=== PATIENT | female | born 1950 | race Caucasian/White ===

== ENCOUNTER 2020-04-29 16:33 | Outpatient (REF) | payer MEDICARE, SELFPAY ==
--- NOTE | 2020-04-29 16:46 | XR_ITS ---
EXAMINATION: XR ankle LT 2V, XR ankle RT 2V CLINICAL INFORMATION: No clinical history provided. COMPARISON: None. TECHNIQUE: AP, lateral and oblique views of both ankles. FINDINGS: LEFT ANKLE: There is mild deformity of the distal fibula consistent with old trauma. Several small ossicles at the tip of the medial malleolus are likely chronic. Clinical correlation will be helpful to rule out acute injury. No significant soft tissue swelling or joint effusion is seen. A well corticated plantar spur is present on the posterior calcaneus. RIGHT ANKLE: Small well-corticated ossicles at the medial malleolus and base of the fifth metatarsal appear chronic. No acute bony abnormality. No significant soft tissue swelling or joint effusion. Small spurs are present on the posterior calcaneus at the insertion of the Achilles tendon and plantar fascia. IMPRESSION: 1. Mild fragmentation of the left medial malleolus likely chronic. Clinical correlation will be helpful to rule out acute injury. 2. No acute abnormality of the right ankle demonstrated. Chronic changes as noted.
== END 2020-04-29 16:34 | disposition home or self-care (01) ==
LOC: HO.HMGCX 16:33
PROVIDERS: PCP Internal Medicine; Visit Provider Internal Medicine
DX: R73.01 Impaired fasting glucose (principal)
CPT/HCPCS: 73600

== ENCOUNTER → 2020-09-07 08:54 | Outpatient (BNVA) | payer MEDICARE, SELFPAY | PROVIDERS: PCP Internal Medicine; Visit Provider Internal Medicine | DX: M81.0 Age-related osteoporosis without current pathological fracture (principal); E55.9 Vitamin D deficiency, unspecified | CPT/HCPCS: 96372; 96402; 99212; J0897 ==

== ENCOUNTER 2020-09-30 10:30 | Outpatient (REF) | payer MEDICARE, SELFPAY ==
[2020-09-30 11:51] LABS: Albumin Level 4.2 g/dL (3.5-5.0); Calcium 8.9 mg/dL (8.4-10.2); Estimated Glomerular Filt Rate 56; Phosphorus 3.2 mg/dL (2.7-4.5)
[2020-09-30 12:19] LABS: Vitamin D 25-OH Total 40.3 ng/mL (>30)
[2020-10-03 16:12] LABS: Calcium (PTHI) 9.4 mg/dL (8.6-10.4); PTHI 95 pg/mL (14-64)
== END 2020-09-30 10:31 | disposition home or self-care (01) ==
LOC: HO.HMGCLDS 10:30
PROVIDERS: PCP Internal Medicine; Visit Provider Internal Medicine
DX: M81.0 Age-related osteoporosis without current pathological fracture (principal); E55.9 Vitamin D deficiency, unspecified
CPT/HCPCS: 36415; 82040; 82306; 82310; 82565; 83970; 84100

== ENCOUNTER 2020-11-21 08:16 | Outpatient (REF) | payer MEDICARE, SELFPAY ==
[2020-11-21 11:35] LABS: Estimated Average Glucose 117 mg/dL; Hemoglobin A1c % 5.7 %
[2020-11-21 11:53] LABS: Anion Gap 16 (12-20); Blood Urea Nitrogen 18 mg/dL (9-16); Calcium 9.6 mg/dL (8.4-10.2); Carbon Dioxide 28 mmol/L (22-29); Chloride 105 mmol/L (96-108); Cholesterol 282 mg/dL; Estimated Glomerular Filt Rate > 60; Glucose Fasting 113 mg/dL (60-99); HDL Cholesterol 42 mg/dL; LDL Cholesterol Calculated 206 mg/dl; Potassium 4.9 mmol/L (3.3-5.1); Sodium 144 mmol/L (135-145); Triglycerides 173 mg/dL
[2020-11-21 12:18] LABS: Ferritin 96 ng/mL (10-250); TSH reflex Free T4 1.24 uIU/mL (0.32-4.0)
[2020-11-21 12:35] LABS: Vitamin B12 394 pg/mL (200-900)
== END 2020-11-21 08:17 | disposition home or self-care (01) ==
LOC: HO.HMGCLDS 08:16
PROVIDERS: PCP Internal Medicine; Visit Provider Internal Medicine
DX: E03.9 Hypothyroidism, unspecified (principal); L60.3 Nail dystrophy; E78.9 Disorder of lipoprotein metabolism, unspecified; F32.9 Major depressive disorder, single episode, unspecified; I10 Essential (primary) hypertension; J45.909 Unspecified asthma, uncomplicated; K21.9 Gastro-esophageal reflux disease without esophagitis; R73.01 Impaired fasting glucose; M25.571 Pain in right ankle and joints of right foot; M25.572 Pain in left ankle and joints of left foot
CPT/HCPCS: 36415; 80048; 80061; 82607; 82728; 83036; 84443

== ENCOUNTER 2021-02-15 11:19 | Outpatient (REF) | payer MEDICARE, SELFPAY ==
[2021-02-15 14:39] LABS: Alanine Aminotransferase 32 U/L (0-31); Albumin Level 4.1 g/dL (3.5-5.0); Alkaline Phosphatase 83 U/L (39-117); Anion Gap 15 (12-20); Aspartate Amino Transferase 31 U/L (5-31); Bilirubin Total 0.5 mg/dL (0.0-1.0); Blood Urea Nitrogen 16 mg/dL (9-16); Calcium 9.1 mg/dL (8.4-10.2); Carbon Dioxide 31 mmol/L (22-29); Chloride 102 mmol/L (96-108); Cholesterol 178 mg/dL; Estimated Glomerular Filt Rate 59; Glucose Fasting 108 mg/dL (60-99); HDL Cholesterol 44 mg/dL; LDL Cholesterol Calculated 109 mg/dl; Sodium 144 mmol/L (135-145); Total Protein 7.1 g/dL (6.5-8.0); Triglycerides 125 mg/dL
== END 2021-02-15 11:20 | disposition home or self-care (01) ==
LOC: HO.HMGCLDS 11:19
PROVIDERS: PCP Internal Medicine; Visit Provider Internal Medicine
DX: E03.9 Hypothyroidism, unspecified (principal); E66.9 Obesity, unspecified; E78.9 Disorder of lipoprotein metabolism, unspecified; I10 Essential (primary) hypertension
CPT/HCPCS: 36415; 80053; 80061; 84443

== ENCOUNTER 2021-03-06 10:26 | Outpatient (REF) | payer MEDICARE, SELFPAY ==
[2021-03-06 14:25] LABS: Albumin Level 4.2 g/dL (3.5-5.0); Calcium 9.5 mg/dL (8.4-10.2); Estimated Glomerular Filt Rate 58; Phosphorus 3.5 mg/dL (2.7-4.5)
[2021-03-06 14:52] LABS: Vitamin D 25-OH Total 37.6 ng/mL (>30)
== END 2021-03-06 10:27 | disposition home or self-care (01) ==
LOC: HO.HMGCLDS 10:26
PROVIDERS: PCP Internal Medicine; Visit Provider Internal Medicine
DX: M81.0 Age-related osteoporosis without current pathological fracture (principal); E55.9 Vitamin D deficiency, unspecified
CPT/HCPCS: 36415; 82040; 82306; 82310; 82565; 83970; 84100

== ENCOUNTER → 2021-03-08 08:52 | Outpatient (BNVA) | payer MEDICARE, SELFPAY | PROVIDERS: PCP Internal Medicine; Visit Provider Internal Medicine | DX: M81.0 Age-related osteoporosis without current pathological fracture (principal); E55.9 Vitamin D deficiency, unspecified | CPT/HCPCS: 20552; 96372; 99212; J0897 ==

== ENCOUNTER 2021-03-24 08:10 | Outpatient (REF) | payer MEDICARE, SELFPAY ==
[2021-03-24 12:23] LABS: Estimated Glomerular Filt Rate > 60
[2021-03-24 12:34] LABS: Vitamin D 25-OH Total 32.6 ng/mL (>30)
[2021-03-24 12:39] LABS: Alanine Aminotransferase 34 U/L (0-31); Alkaline Phosphatase 82 U/L (39-117); Anion Gap 13 (12-20); Aspartate Amino Transferase 26 U/L (5-31); Bilirubin Total 0.4 mg/dL (0.0-1.0); Blood Urea Nitrogen 17 mg/dL (9-16); Calcium 8.6 mg/dL (8.4-10.2); Carbon Dioxide 29 mmol/L (22-29); Chloride 106 mmol/L (96-108); Estimated Glomerular Filt Rate > 60; Glucose Random 111 mg/dL (60-115); Phosphorus 3.5 mg/dL (2.7-4.5); Sodium 144 mmol/L (135-145); Total Protein 6.7 g/dL (6.5-8.0)
[2021-03-27 13:12] LABS: Calcium (PTHI) 9.1 mg/dL (8.6-10.4); PTHI 127 pg/mL (14-64); PTHI 133 pg/mL (14-64)
[2021-03-28 17:47] LABS: N-Telopeptide 22 (see note); NTXCreaRU 175 mg/dL (20-275)
== END 2021-03-24 08:11 | disposition home or self-care (01) ==
LOC: HO.HMGCLDS 08:10
PROVIDERS: PCP Internal Medicine; Visit Provider Internal Medicine
DX: M81.0 Age-related osteoporosis without current pathological fracture (principal); E55.9 Vitamin D deficiency, unspecified
CPT/HCPCS: 36415; 80053; 82040; 82306; 82310; 82523; 82565; 83970; 84100

== ENCOUNTER 2021-05-05 12:20 | Outpatient (REF) | payer MEDICARE, SELFPAY ==
[2021-05-05 14:03] LABS: Appearance Urine HAZY; Color Urine ORANGE; Glucose Urine UA NEG (NEG); Leukocyte Esterase Urine 1+ (NEG); Nitrite Urine NEG (NEG); Specific Gravity - Urine 1.015 (1.005-1.025); Urine Blood NEG (NEG); Urine Ketones NEG (NEG); Urine Protein NEG (NEG-TRACE)
[2021-05-05 14:20] LABS: Bacteria Urine TRACE /LPF; Mucus Urine 1+ /LPF; RBC Urine 0 /HPF (0); Squamous Epithelial Cell Urine 1+ /LPF
[2021-05-05 14:28] LABS: Alanine Aminotransferase 42 U/L (0-31); Albumin Level 4.3 g/dL (3.5-5.0); Alkaline Phosphatase 92 U/L (39-117); Anion Gap 14 (12-20); Aspartate Amino Transferase 32 U/L (5-31); Bilirubin Total 0.6 mg/dL (0.0-1.0); Blood Urea Nitrogen 15 mg/dL (9-16); Calcium 9.6 mg/dL (8.4-10.2); Carbon Dioxide 29 mmol/L (22-29); Chloride 106 mmol/L (96-108); Estimated Glomerular Filt Rate > 60; Glucose Random 108 mg/dL (60-115); Iron 60 mcg/dL (30-160); Magnesium 1.8 mg/dL (1.6-2.6); Percent Iron Saturation 17 % (15-50); Phosphorus 3.2 mg/dL (2.7-4.5); Potassium 4.5 mmol/L (3.3-5.1); Sodium 144 mmol/L (135-145); Total Iron Binding Capacity 357 mcg/dL (228-428); Total Protein 7.2 g/dL (6.5-8.0); Unsaturated Iron Binding 297 ug/dL; Uric Acid 5.8 mg/dL (2.4-5.7)
[2021-05-05 14:46] LABS: Creatinine Urine 111.16 mg/dL; Microalbum/Creatinine Ratio Ur 15.2 ug/mg cr; Protein/Creatinine Ratio, Ur 0.09 (<0.2); Total Protein Urine Random 10 mg/dL (<12)
[2021-05-05 14:50] LABS: Ferritin 89 ng/mL (10-250); Vitamin D 25-OH Total 33.6 ng/mL (>30)
[2021-05-09 15:56] LABS: Calcium (PTHI) 9.6 mg/dL (8.6-10.4); PTHI 60 pg/mL (14-64)
== END 2021-05-05 12:21 | disposition home or self-care (01) ==
LOC: HO.HMGCLDS 12:20
PROVIDERS: PCP Internal Medicine; Visit Provider Internal Medicine Nephrology
DX: I12.9 Hypertensive chronic kidney disease with stage 1 through stage 4 chronic kidney disease, or unspecified chronic kidney disease (principal); N18.2 Chronic kidney disease, stage 2 (mild)
CPT/HCPCS: 36415; 80053; 81001; 82043; 82306; 82728; 83540; 83735; 83970; 84100; 84156; 84300; 84550

== ENCOUNTER 2021-09-12 12:51 | Outpatient (REF) | payer MEDICARE, SELFPAY ==
[2021-09-12 14:11] LABS: Hematocrit 40.4 % (37.0-47.0); Hemoglobin 12.5 g/dl (12.0-16.0)
[2021-09-12 14:36] LABS: Alanine Aminotransferase 17 U/L (0-31); Albumin Level 3.9 g/dL (3.5-5.0); Alkaline Phosphatase 76 U/L (39-117); Anion Gap 12 (12-20); Aspartate Amino Transferase 16 U/L (5-31); Bilirubin Total 0.6 mg/dL (0.0-1.0); Blood Urea Nitrogen 15 mg/dL (9-16); Calcium 9.1 mg/dL (8.4-10.2); Carbon Dioxide 31 mmol/L (22-29); Chloride 104 mmol/L (96-108); Estimated Glomerular Filt Rate > 60; Glucose Random 140 mg/dL (60-115); Potassium 3.6 mmol/L (3.3-5.1); Sodium 143 mmol/L (135-145); Total Protein 6.7 g/dL (6.5-8.0)
[2021-09-12 14:58] LABS: TSH reflex Free T4 5.84 uIU/mL (0.32-4.0)
[2021-09-12 15:52] LABS: Free T4 (Free Thyroxine) 1.01 ng/dL (0.71-1.85)
[2021-09-14 03:52] LABS: LDL Cholesterol Direct 139 mg/dL (<100)
== END 2021-09-12 12:52 | disposition home or self-care (01) ==
LOC: HO.HMGCLDS 12:51
PROVIDERS: Visit Provider Internal Medicine
DX: E66.9 Obesity, unspecified (principal); I10 Essential (primary) hypertension; F32.9 Major depressive disorder, single episode, unspecified; K21.9 Gastro-esophageal reflux disease without esophagitis; E78.9 Disorder of lipoprotein metabolism, unspecified; E03.9 Hypothyroidism, unspecified; N28.9 Disorder of kidney and ureter, unspecified
CPT/HCPCS: 36415; 80053; 83721; 84439; 84443; 85014; 85018

== ENCOUNTER → 2021-09-13 08:57 | Outpatient (BNVA) | payer MEDICARE, SELFPAY | PROVIDERS: PCP Internal Medicine; Visit Provider Internal Medicine | DX: M81.0 Age-related osteoporosis without current pathological fracture (principal); E55.9 Vitamin D deficiency, unspecified | CPT/HCPCS: 99212 ==

== ENCOUNTER 2021-09-13 10:18 | Outpatient (REF) | payer MEDICARE, SELFPAY ==
[2021-09-13 14:06] LABS: Alanine Aminotransferase 19 U/L (0-31); Alkaline Phosphatase 72 U/L (39-117); Anion Gap 12 (12-20); Aspartate Amino Transferase 17 U/L (5-31); Bilirubin Total 0.5 mg/dL (0.0-1.0); Blood Urea Nitrogen 19 mg/dL (9-16); Calcium 9.8 mg/dL (8.4-10.2); Carbon Dioxide 33 mmol/L (22-29); Chloride 101 mmol/L (96-108); Estimated Glomerular Filt Rate > 60; Glucose Random 86 mg/dL (60-115); Phosphorus 4.2 mg/dL (2.7-4.5); Potassium 4.3 mmol/L (3.3-5.1); Sodium 142 mmol/L (135-145); Total Protein 6.9 g/dL (6.5-8.0)
[2021-09-13 14:27] LABS: Vitamin D 25-OH Total 26.4 ng/mL (>30)
[2021-09-14 15:07] LABS: Calcium (PTHI) 9.6 mg/dL (8.6-10.4); PTHI 45 pg/mL (14-64)
== END 2021-09-13 10:19 | disposition home or self-care (01) ==
LOC: HO.10HDL 10:18
PROVIDERS: Visit Provider Internal Medicine
DX: M81.0 Age-related osteoporosis without current pathological fracture (principal); E55.9 Vitamin D deficiency, unspecified
CPT/HCPCS: 36415; 80053; 82306; 83970; 84100; 99212

== ENCOUNTER → 2021-10-02 09:56 | Outpatient (BNVA) | payer MEDICARE, SELFPAY | PROVIDERS: PCP Internal Medicine; Visit Provider Internal Medicine | DX: M81.0 Age-related osteoporosis without current pathological fracture (principal) | CPT/HCPCS: 96372; J0897 ==

== ENCOUNTER 2022-02-16 10:14 | Outpatient (REF) | payer MEDICARE, SELFPAY ==
[2022-02-16 11:46] LABS: MANUAL DIFF FLAG NO
[2022-02-16 11:49] LABS: Basophils Percent Auto 0.5 % (0-2); Eosinophils Absolute Auto 0.1 X10*3/uL (0.0-0.4); Eosinophils Percent Auto 1.3 % (0-4); Hematocrit 40.1 % (37.0-47.0); Hemoglobin 12.4 g/dl (12.0-16.0); Imm Gran Abs Auto 0.05 X10*3/uL (0.00-0.03); Imm Gran Pct Auto 0.6 % (0.0-0.4); Lymphocytes Absolute Auto 1.6 X10*3/uL (1.2-4.9); Lymphocytes Percent Auto 17.8 % (20-40); Mean Corpuscular HGB Conc 30.9 g/dl (31.0-35.0); Mean Corpuscular Hemoglobin 25.4 pg (27.0-33.0); Mean Platelet Volume 9.7 fL (9.4-12.3); Monocytes Absolute Auto 0.4 X10*3/uL (0.1-1.2); Monocytes Percent Auto 4.6 % (2-11); Neutrophils Absolute Auto 6.6 x10*3/uL (2.0-8.3); Neutrophils Percent Auto 75.2 % (45-73); Platelet Count 342 X10*3/uL (160-400); Red Blood Count 4.89 X10*6/uL (4.20-5.50); Red Cell Distribution Width 14.3 % (11.0-16.0); White Blood Count 8.7 X10*3/uL (4.8-10.8)
[2022-02-16 12:12] LABS: Alanine Aminotransferase 26 U/L (0-31); Alkaline Phosphatase 61 U/L (39-117); Anion Gap 12 (12-20); Aspartate Amino Transferase 16 U/L (5-31); Bilirubin Total 0.8 mg/dL (0.0-1.0); Blood Urea Nitrogen 21 mg/dL (9-16); Carbon Dioxide 28 mmol/L (22-29); Chloride 108 mmol/L (96-108); Estimated Glomerular Filt Rate > 60; Glucose Random 113 mg/dL (60-115); Phosphorus 3.3 mg/dL (2.7-4.5); Potassium 3.9 mmol/L (3.3-5.1); Sodium 144 mmol/L (135-145); Total Protein 6.8 g/dL (6.5-8.0)
[2022-02-16 12:21] LABS: TSH reflex Free T4 0.34 uIU/mL (0.32-4.0)
[2022-02-16 12:23] LABS: Vitamin D 25-OH Total 29.1 ng/mL (>30)
[2022-02-19 07:03] LABS: LDL Cholesterol Direct 135 mg/dL (<100)
[2022-02-20 15:52] LABS: Calcium (PTHI) 9.3 mg/dL (8.6-10.4); PTHI 62 pg/mL (16-77)
== END 2022-02-16 10:15 | disposition home or self-care (01) ==
LOC: HO.HMGCLDS 10:14
PROVIDERS: PCP Internal Medicine; Visit Provider Internal Medicine
DX: E66.9 Obesity, unspecified (principal); E78.9 Disorder of lipoprotein metabolism, unspecified; F33.42 Major depressive disorder, recurrent, in full remission; I10 Essential (primary) hypertension; K21.9 Gastro-esophageal reflux disease without esophagitis; M81.0 Age-related osteoporosis without current pathological fracture; E55.9 Vitamin D deficiency, unspecified; E03.9 Hypothyroidism, unspecified
CPT/HCPCS: 36415; 80053; 82306; 83721; 83970; 84100; 84443; 85025

== ENCOUNTER 2022-03-07 07:52 | Outpatient (REF) | payer MEDICARE, SELFPAY ==
--- NOTE | ~2022-03-07 | XR_ITS ---
EXAMINATION: XR HIP, RIGHT CLINICAL INFORMATION: Pain in hip. COMPARISON: None TECHNIQUE: Two views of the right hip. AP pelvis. FINDINGS: AP PELVIS: There is normal symmetry of bilateral hip joints with minimal loss of joint space. The SI joints are symmetrical and normal. No visible fracture or bony abnormality seen. The soft tissues are normal. There is mild facet joint arthropathy L4-L5 disc level. RIGHT HIP: There is minimal loss of right hip joint space without any bony erosive changes, fracture or loose bodies. XR/XR hip RT w PEL1V IMPRESSION: Mild degenerative changes right hip joint. No visible acute fracture or dislocation. Moderate degenerative facet joint arthropathy left L4-L5 disc level. No acute fracture or dislocation seen.
== END 2022-03-07 07:53 | disposition home or self-care (01) ==
LOC: HO.HOSX 07:52
PROVIDERS: Visit Provider Physician Assistant
DX: M70.61 Trochanteric bursitis, right hip (principal); M16.11 Unilateral primary osteoarthritis, right hip
CPT/HCPCS: 20610; 73502; 99202; J1040

== ENCOUNTER → 2022-04-05 09:43 | Outpatient (BNVA) | payer MEDICARE, SELFPAY | PROVIDERS: PCP Internal Medicine; Visit Provider Internal Medicine | DX: M81.0 Age-related osteoporosis without current pathological fracture (principal) | CPT/HCPCS: 96372; J0897 ==

== ENCOUNTER → 2022-04-18 09:30 | Outpatient (BNVA) | payer MEDICARE, SELFPAY | PROVIDERS: PCP Internal Medicine; Visit Provider Physician Assistant | DX: M16.11 Unilateral primary osteoarthritis, right hip (principal) | CPT/HCPCS: 99212 ==

== ENCOUNTER 2022-04-23 09:31 | Outpatient (REF) | payer MEDICARE, SELFPAY ==
[2022-04-23 10:16] LABS: Estimated Glomerular Filt Rate > 60
[2022-04-24 11:02] LABS: PTHI 99 pg/mL (16-77)
== END 2022-04-23 09:32 | disposition home or self-care (01) ==
LOC: HO.LAB 09:31
PROVIDERS: PCP Internal Medicine; Visit Provider Internal Medicine
DX: M81.0 Age-related osteoporosis without current pathological fracture (principal)
CPT/HCPCS: 36415; 82565; 83970

== ENCOUNTER 2022-06-25 12:16 | Outpatient (REF) | payer MEDICARE, SELFPAY ==
[2022-06-25 14:30] LABS: Estimated Glomerular Filt Rate > 60
[2022-06-27 12:23] LABS: PTHI 44 pg/mL (16-77)
== END 2022-06-25 12:17 | disposition home or self-care (01) ==
LOC: HO.HMGCLDS 12:16
PROVIDERS: PCP Internal Medicine; Visit Provider Internal Medicine
DX: M81.0 Age-related osteoporosis without current pathological fracture (principal)
CPT/HCPCS: 36415; 82565; 83970

== ENCOUNTER 2022-10-02 08:49 | Outpatient (REF) | payer MEDICARE, SELFPAY ==
[2022-10-02 11:31] LABS: MANUAL DIFF FLAG NO
[2022-10-02 11:38] LABS: Basophils Absolute Auto 0.1 X10*3/uL (0.0-0.2); Basophils Percent Auto 1.3 % (0-2); Eosinophils Absolute Auto 0.3 X10*3/uL (0.0-0.4); Eosinophils Percent Auto 4.4 % (0-4); Hematocrit 32.3 % (37.0-47.0); Hemoglobin 10.1 g/dl (12.0-16.0); Imm Gran Abs Auto 0.04 X10*3/uL (0.00-0.03); Imm Gran Pct Auto 0.5 % (0.0-0.4); Lymphocytes Absolute Auto 1.8 X10*3/uL (1.2-4.9); Lymphocytes Percent Auto 23.7 % (20-40); Mean Corpuscular HGB Conc 31.3 g/dl (31.0-35.0); Mean Corpuscular Hemoglobin 26.4 pg (27.0-33.0); Mean Corpuscular Volume 84.6 fL (80.0-98.0); Mean Platelet Volume 9.8 fL (9.4-12.3); Monocytes Absolute Auto 0.6 X10*3/uL (0.1-1.2); Monocytes Percent Auto 7.4 % (2-11); Neutrophils Absolute Auto 4.7 x10*3/uL (2.0-8.3); Neutrophils Percent Auto 62.7 % (45-73); Platelet Count 544 X10*3/uL (160-400); Red Blood Count 3.82 X10*6/uL (4.20-5.50); Red Cell Distribution Width 14.7 % (11.0-16.0); White Blood Count 7.5 X10*3/uL (4.8-10.8)
[2022-10-02 12:24] LABS: Alanine Aminotransferase 13 U/L (0-31); Alkaline Phosphatase 88 U/L (39-117); Anion Gap 16 (12-20); Aspartate Amino Transferase 18 U/L (5-31); Bilirubin Total 0.5 mg/dL (0.0-1.0); Blood Urea Nitrogen 20 mg/dL (9-16); Calcium 9.5 mg/dL (8.4-10.2); Carbon Dioxide 28 mmol/L (22-29); Chloride 103 mmol/L (96-108); Cholesterol 183 mg/dL; Estimated Glomerular Filt Rate 58; Glucose Fasting 106 mg/dL (60-99); HDL Cholesterol 37 mg/dL; LDL Cholesterol Calculated 113 mg/dl; Potassium 4.6 mmol/L (3.3-5.1); Sodium 142 mmol/L (135-145); Total Protein 6.8 g/dL (6.5-8.0); Triglycerides 165 mg/dL
[2022-10-02 12:41] LABS: TSH reflex Free T4 0.52 uIU/mL (0.32-4.0)
== END 2022-10-02 08:50 | disposition home or self-care (01) ==
LOC: HO.HMGCLDS 08:49
PROVIDERS: PCP Internal Medicine; Visit Provider Internal Medicine
DX: I10 Essential (primary) hypertension (principal); E78.9 Disorder of lipoprotein metabolism, unspecified; E03.9 Hypothyroidism, unspecified; K21.9 Gastro-esophageal reflux disease without esophagitis; F33.9 Major depressive disorder, recurrent, unspecified; E66.9 Obesity, unspecified; M16.11 Unilateral primary osteoarthritis, right hip
CPT/HCPCS: 36415; 80053; 80061; 84443; 85025

== ENCOUNTER 2022-12-04 08:41 | Outpatient (REF) | payer MEDICARE, SELFPAY ==
[2022-12-04 12:17] LABS: Estimated Average Glucose 140 mg/dL; Hemoglobin A1c % 6.5 %
[2022-12-04 12:55] LABS: Alanine Aminotransferase 31 U/L (0-31); Albumin Level 4.4 g/dL (3.5-5.0); Alkaline Phosphatase 87 U/L (39-117); Anion Gap 15 (12-20); Aspartate Amino Transferase 21 U/L (5-31); Bilirubin Total 0.5 mg/dL (0.0-1.0); Blood Urea Nitrogen 30 mg/dL (9-16); Carbon Dioxide 27 mmol/L (22-29); Chloride 105 mmol/L (96-108); Estimated Glomerular Filt Rate 56; Glucose Fasting 140 mg/dL (60-99); Glucose Random 140 mg/dL (60-115); Potassium 4.7 mmol/L (3.3-5.1); Sodium 142 mmol/L (135-145); Total Protein 7.5 g/dL (6.5-8.0)
[2022-12-04 13:01] LABS: Ferritin 82 ng/mL (10-250)
== END 2022-12-04 08:42 | disposition home or self-care (01) ==
LOC: HO.HMGCLDS 08:41
PROVIDERS: PCP Internal Medicine; Visit Provider Internal Medicine
DX: D64.9 Anemia, unspecified (principal); E03.9 Hypothyroidism, unspecified; E78.9 Disorder of lipoprotein metabolism, unspecified; F33.9 Major depressive disorder, recurrent, unspecified; I10 Essential (primary) hypertension; K21.9 Gastro-esophageal reflux disease without esophagitis; R73.01 Impaired fasting glucose
CPT/HCPCS: 36415; 80053; 82728; 83036

== ENCOUNTER → 2022-12-12 08:52 | Outpatient (BNVA) | payer MEDICARE, SELFPAY | PROVIDERS: PCP Internal Medicine; Visit Provider Internal Medicine | DX: M81.0 Age-related osteoporosis without current pathological fracture (principal); E55.9 Vitamin D deficiency, unspecified | CPT/HCPCS: 36415; 80053; 82306; 82523; 83970; 84100; 99212 ==

== ENCOUNTER 2022-12-12 09:19 | Outpatient (REF) | payer MEDICARE, SELFPAY ==
[2022-12-12 11:14] LABS: Alanine Aminotransferase 20 U/L (0-31); Alkaline Phosphatase 87 U/L (39-117); Anion Gap 13 (12-20); Aspartate Amino Transferase 14 U/L (5-31); Bilirubin Total 0.6 mg/dL (0.0-1.0); Blood Urea Nitrogen 20 mg/dL (9-16); Calcium 9.8 mg/dL (8.4-10.2); Carbon Dioxide 30 mmol/L (22-29); Chloride 106 mmol/L (96-108); Estimated Glomerular Filt Rate > 60; Glucose Random 117 mg/dL (60-115); Phosphorus 4.4 mg/dL (2.7-4.5); Potassium 4.8 mmol/L (3.3-5.1); Sodium 144 mmol/L (135-145); Total Protein 6.8 g/dL (6.5-8.0)
[2022-12-12 11:29] LABS: Vitamin D 25-OH Total 38.3 ng/mL (>30)
[2022-12-14 16:33] LABS: Calcium (PTHI) 9.9 mg/dL (8.6-10.4); PTHI 32 pg/mL (16-77)
[2022-12-20 20:43] LABS: N-Telopeptide 73 (see note); NTXCreaRU 119 mg/dL (20-275)
== END 2022-12-12 09:20 | disposition home or self-care (01) ==
LOC: HO.10HDL 09:19
PROVIDERS: Visit Provider Internal Medicine
DX: Z13.89 Encounter for screening for other disorder (principal)
CPT/HCPCS: 36415; 80053; 82306; 82523; 83970; 84100

== ENCOUNTER 2022-12-14 09:04 | Outpatient (REF) | payer MEDICARE, SELFPAY ==
--- NOTE | ~2022-12-14 | MM_ITS ---
EXAMINATION: BONE DENSITOMETRY CLINICAL INDICATION: Age-related osteoporosis without current pathological fracture. COMPARISON: Baseline BD dated 03/21/2020 (lumbar spine and left hip). This is the initial examination of the left forearm radius 33%. TECHNIQUE: Using a [employer] DXA System (software version: 13.1) manufactured by [employer], dual-energy x-ray absorptiometry was performed of the lumbar spine, left hip and left forearm radius 33%.. The images are of good technical quality. Summary results are attached. FINDINGS: AP SPINE L1-L4: Current: BMD 1.204 g/cm2, Z-score 1.2, T-score 0.2, normal, 2.9% increase from baseline (<5% change is not significant). Baseline: BMD 1.170 g/cm2. LEFT FEMUR, NECK: Current: BMD 0.695 g/cm2, Z-score -1.2, T-score -2.5, osteoporosis. Baseline: BMD 0.681 g/cm2. LEFT FEMUR, TOTAL: Current: BMD 0.840 g/cm2, Z-score -0.3, T-score -1.3, osteopenia, 0.0% no change from baseline (<5% change is not significant). Baseline: BMD 0.840 g/cm2. LEFT FOREARM RADIUS 33%: BMD 0.803 g/cm2, Z-score 1.0, T-score -0.8, normal. IDENTIFIED RISK FACTORS: Osteoporosis. Renal disease. Parental hip fracture. Menopause. HISTORY OF FRACTURE: None listed. MEDICATIONS: Calcium supplement and/or multivitamin. Vitamin D. Prolia. MM/XR DEXA appendicular skeleton IMPRESSION: 1. DIAGNOSIS: Osteoporosis based on the lowest T-score value of -2.5 in the femoral neck applying World Health Organization criteria. 2. 10-YEAR FRACTURE RISK PREDICTION, FRAX: According to the guidelines, FRAX calculation should only be performed on patients in the osteopenia bone density category.?Therefore, FRAX was not performed on this patient.? 3. Treatment Recommendations: NOF guidelines recommend consideration for treatment in postmenopausal women and men age 50 and older presenting with the following: -A hip or vertebral (clinical or morphometric) fracture. -T-score less than or equal to -2.5 at the femoral neck or spine after appropriate evaluation to exclude secondary causes. -Low bone mass at the hip or spine and a 10-year fracture probability by FRAX of greater than or equal to 3% for hip fracture or greater than or equal to 20% for major osteoporotic fracture based on the [place] adapted WHO algorithm. 4. Other Recommendations: All treatment decisions require clinical judgment and consideration of individual patient factors, including patient preferences, comorbidities, previous drug use, risk factors not captured in the FRAX model (e.g. frailty, falls, vitamin D deficiency, increased bone turnover, interval significant decline in bone density) and possible under or overestimation of fracture risk by FRAX. Additional medical evaluation for secondary cause of low bone mineral density may be appropriate. FUTURE SCAN RECOMMENDATION: People with diagnosed cases of osteoporosis or at high risk for fracture should have regular bone mineral density tests. For patients eligible for Medicare, routine testing is allowed once every 2 years. The testing frequency can be increased to one year for patients who have rapidly progressing disease, those who are receiving or discontinuing medical therapy to restore bone mass, or have additional risk factors.
== END 2022-12-14 09:05 | disposition home or self-care (01) ==
LOC: HO.MAMMO 09:04
PROVIDERS: PCP Internal Medicine; Visit Provider Internal Medicine
DX: M81.0 Age-related osteoporosis without current pathological fracture (principal)
CPT/HCPCS: 77081

== ENCOUNTER → 2022-12-19 08:57 | Outpatient (BNVA) | payer MEDICARE, SELFPAY | PROVIDERS: PCP Internal Medicine; Visit Provider Internal Medicine | DX: M81.0 Age-related osteoporosis without current pathological fracture (principal) | CPT/HCPCS: 96372; J0897 ==

== ENCOUNTER 2023-01-02 11:43 | Outpatient (REF) | payer MEDICARE, SELFPAY ==
[2023-01-02 14:17] LABS: Estimated Glomerular Filt Rate > 60
[2023-01-03 22:24] LABS: Calcium (PTHI) 9.4 mg/dL (8.6-10.4); PTHI 55 pg/mL (16-77)
== END 2023-01-02 11:44 | disposition home or self-care (01) ==
LOC: HO.HMGCLDS 11:43
PROVIDERS: PCP Internal Medicine; Visit Provider Internal Medicine
DX: M81.0 Age-related osteoporosis without current pathological fracture (principal)
CPT/HCPCS: 36415; 82565; 83970

== ENCOUNTER 2023-02-01 10:15 | Outpatient (REF) | payer MEDICARE, SELFPAY ==
[2023-02-06 15:19] LABS: Vitamin D 25-OH, D2 5 ng/mL; Vitamin D 25-OH, D3 28 ng/mL; Vitamin D 25-OH, Total 33 ng/mL (30-100)
== END 2023-02-01 10:16 | disposition home or self-care (01) ==
LOC: HO.HMGCLDS 10:15
PROVIDERS: PCP Internal Medicine; Visit Provider Internal Medicine
DX: D64.9 Anemia, unspecified (principal); E03.9 Hypothyroidism, unspecified; E55.9 Vitamin D deficiency, unspecified; E78.9 Disorder of lipoprotein metabolism, unspecified; F33.9 Major depressive disorder, recurrent, unspecified; I10 Essential (primary) hypertension; K21.9 Gastro-esophageal reflux disease without esophagitis; M81.0 Age-related osteoporosis without current pathological fracture; R73.01 Impaired fasting glucose
CPT/HCPCS: 36415; 80053; 80061; 82306; 82607; 82728; 84443; 85025

== ENCOUNTER 2023-04-30 08:43 | Outpatient (AMB) | payer MEDICARE, SELFPAY ==
[2023-04-30 08:49] VITALS: BP 138/82; PULSE 79; O2SAT 95; BMI 36.1
--- NOTE | 2023-04-30 08:49 | MHC.PC.OV ---
Vital Signs 04/30/23 08:49 Height 4 ft 11 in Weight 179 lb BMI 36.1 BP 138/82 Blood Pressure Location Rt brachial Position Sitting Pulse 79 Pulse Source Pulse Oximeter Pulse Oximetry (%) 95 Oxygen Delivery Method Room Air Intake Visit Reasons: 3m follow up Allergies tetanus toxoid, adsorbed [Tetanus Toxoid,Adsorbed] Allergy (Severe, Verified 04/30/23 08:50) SEVERE SWELLING amoxicillin [Augmentin] Allergy (Unknown, Verified 04/30/23 08:50) Unknown clavulanic acid [Augmentin] Allergy (Unknown, Verified 04/30/23 08:50) Unknown Tetanus Allergy (Unknown, Uncoded 12/12/22 09:05) swelling Tetanus Immune Globulin Allergy (Unknown, Uncoded 12/12/22 09:05) Unknown From Augmentin Adverse Reaction (Severe, Uncoded 12/12/22 09:05) SEVERE N/V Medication List - Last Reconciled 04/30/23 by Princess Fairchild MD albuterol sulfate 90 mcg/actuation (ProAir HFA) 1 inh inhalation QID PRN 30 days amlodipine 5 mg PO DAILY aspirin 81 mg PO DAILY atorvastatin 40 mg PO DAILY 90 days calcium citrate-vitamin D3 315 mg-5 mcg (200 unit) 1 tab PO BID 30 days denosumab (Prolia) 60 mg subcut [id number] hydrochlorothiazide 25 mg PO QAM 90 days latanoprost 0.005% 1 drp ophthalmic (eye) QPM levothyroxine 88 mcg PO DAILY 90 days paroxetine HCl 40 mg PO QAM 90 days timolol maleate 0.5% drps ophthalmic (eye) DAILY Tobacco use date assessed: 04/30/23 Fall risk assessment: 2 + Falls in past year Last assessed Fall Risk: 04/30/23 Dental Screening Dental Screen Date: 04/30/23 Did you have a dental visit in the last 12 months?: Yes Did you have a dental problem in the last 6 months where you did not have access to dental care?: No Was dental information given to patient?: Patient has dentist HPI 3m follow up HPI Details Patient is 72-year-old female came in today for her regular follow-up appointment Patient tells me that when she is sleeping she act out by moving her legs and screaming sometimes. Patient says that she has always been like that, and her mother was also like that. So she thought it is normal. Discussed with the patient that this is a REM sleep behavior disorder and we have a medication to treat that. I have sent clonazepam 0.5 mg that she can take 30 minutes before bedtime. Patient is aware of side effects like , this medication has a risk of being habit forming, slowing of relfexes, dizziness, and its controlled in nature, will need 3 M visit Patient had total hip replacement right side and is doing very well chronic kidney disease stage 2.? Patient says that she ran out of amlodipine and her additional political scientist has labs she has not seen the new political scientist she is requesting if I can fill it. Medications sent Patient have rheumatoid arthritis, patient is aware that she is not supposed to take NSAIDs Her blood pressure is stable hydrochlorothiazide is from PCP office She is seeing catalogue clerk for her ongoing problem of osteoporosis and parathyroidism.? Moods are stable patient is on Paxil.? Lipid control with atorvastatin.? Patient is also on levothyroxine for hypothyroidism.? BMI is elevated patient is severe and she is trying to lose weight. Follow-up 3 months?? PFSH Medical History Vitamin D deficiency Osteoporosis Brittle nails Bilateral ankle pain Urinary incontinence, mixed Asthma Hypertension, essential Depression Chronic GERD Lipid disorder Hypothyroid Surgical History History of hip surgery History of surgery on right wrist Hx of tubal ligation Hx of cataract removal with insertion of prosthetic lens History of arthroscopy of left shoulder Hx of repair of right rotator cuff H/O knee surgery Family History Father No problems noted. Mother No problems noted. Social History Housing: House Alcohol intake: current Alcohol intake frequency: a few times a month Patient Tobacco Use Status: Never used Tobacco e-Cigarette/Vaping Use: Never Used Second Hand Smoke Exposure: No Current occupational status: retired Cognitive needs: No Hearing needs: No Vision needs: Yes Questionnaire PHQ-9 Over the last 2 weeks, how often have you been bothered by any of the following problems? 1. Little interest or pleasure in doing things: not at all 2. Feeling down, depressed, or hopeless: more than half the days 3. Trouble falling or staying asleep, or sleeping too much: more than half the days 4. Feeling tired or having little energy: not at all 5. Poor appetite or overeating: not at all 6. Feeling bad about yourself - or that you are a failure or have let yourself or your family down: not at all 7. Trouble concentrating on things, such as reading the newspaper or watching television: not at all 8. Moving or speaking so slowly that other people could have noticed. Or the opposite - being so fidgety or restless that you have been moving around a lot more than usual: not at all 9. Thoughts that you would be better off or of hurting yourself in some way: not at all Total score: 4 Depression Screening Interpretation: Negative (Patient is taking medication and is doing well) 05176 - PHQ-9 Billing: Yes Source: Developed by Drs. Parag Overton, Rabia Clarke, Kennedy Casey and colleagues, with an educational trinidad from [employer]. Thrive Questionnaire Date Thrive assessed: 04/30/23 I am a: Patient What is your living situation today?: I have a steady place to live Within the past 12 months, did the food you bought not last and you didn't have the money to get more?: Never true Within the past 12 months, did you worry whether your food would run out before you got money to buy more?: Never true Do you have trouble paying for medicines?: No Do you have trouble getting transportation to medical appointments?: No Do you have trouble paying your heating and electricity bill?: No Do you have trouble taking care of your child, family member or friend?: No Do you have trouble with day-to-day activities such as bathing, preparing meals, shopping, managing finances, etc.?: No Are you currently unemployed and looking for a job?: No Are you interested in more education?: No AUDIT C Alcohol Use Questionnaire (AUDIT-C) 1. How often do you have a drink containing alcohol?: Monthly or less 2. How many drinks containing alcohol do you have on a typical day when you are drinking?: 1 or 2 3. How often do you have six or more drinks on one occasion?: Never Total Score: 1 Score Reviewed/Action Taken: Yes JILLIAN-7 AMB Questionnaire JILLIAN-7 Date JILLIAN - 7 assessed: 04/30/23 Feeling nervous, anxious, or on edge: 0 = Not at all Not being able to stop or control worryin = Not at all Worrying too much about different things: 0 = Not at all Trouble relaxin = Not at all Being so restless that it is hard to sit still: 0 = Not at all Becoming easily annoyed or irritable: 0 = Not at all Feeling afraid as if something awful might happen: 0 = Not at all Total JILLIAN-7 score (0-4 normal; 5-9 mild; 10-14 moderate; 15-21 severe): 0 Source: Developed by Drs. Parag Overton, Rabia Clarke, Kennedy Casey and colleagues, with an educational trinidad from [employer]. JILLIAN-7 Assessment Billing JILLIAN-7 Assessment Tool: JILLIAN-7 Assessment 89576 Review of Systems Const Denies chills and Denies fever(s) ENT Denies epistaxis and Denies nasal discharge Card Denies chest pain Resp Denies chest congestion, Denies cough and Denies hemoptysis GI Denies diarrhea and Denies nausea Skin/Breast Denies rash Neuro Reports no additional complaints Psych Reports no additional complaints Endo Reports no additional complaints Physical exam (Primary Care) Vital Signs: Last Vital Signs Pulse 79 04/30/23 08:49 BP 138/82 04/30/23 08:49 Pulse Ox 95 04/30/23 08:49 Oxygen Delivery Method Room Air 04/30/23 08:49 BMI result Body Mass Index 36.1 Tobacco/Smoking Status: Tobacco use Status Tobacco use date assessed 04/30/23 04/30/23 08:53 Patient Tobacco Use Status Never used Tobacco 04/30/23 08:53 e-Cigarette/Vaping Use Never Used 04/30/23 08:53 PHQ-9: PHQ-9 Score PHQ-9: Total score 4 04/30/23 09:12 Depression Screening Interpretation: Negative (Patient is taking medication and is doing well) Thrive Assessment: Date of Thrive Assessment Date Thrive assessed 04/30/23 04/30/23 09:09 Const General: cooperative, comfortable and no acute distress Orientation/consciousness: patient oriented x3 HENMT Head: Yes normocephalic Eyes General: appearance normal, both eyes and all related structures Neck Neck: Yes supple Resp Effort & Inspection: normal respiratory effort, no cough and no stridor Cardio Rhythm: regular rhythm Heart sounds: S1 normal heart sound present and S2 normal heart sound present Skin General skin exam: turgor normal Neuro General: patient oriented x3, tone normal and moves all extremities Extrem Right lower extremity: no edema Left lower extremity: no edema Assessment and Plan Assessment & Plan (1) Impaired fasting blood sugar: Code(s): R73.01 - Impaired fasting glucose (2) Major depression, recurrent: Code(s): F33.9 - Major depressive disorder, recurrent, unspecified Qualifiers: Active/Remission status: in full remission Qualified Code(s): F33.42 - Major depressive disorder, recurrent, in full remission (3) Vitamin D deficiency: Code(s): E55.9 - Vitamin D deficiency, unspecified (4) Osteoporosis: Code(s): M81.0 - Age-related osteoporosis without current pathological fracture Qualifiers: Osteoporosis type: unspecified Presence of current pathological fracture: unspecified Qualified Code(s): M81.0 - Age-related osteoporosis without current pathological fracture (5) Hypertension, essential: Code(s): I10 - Essential (primary) hypertension (6) Chronic GERD: Code(s): K21.9 - Gastro-esophageal reflux disease without esophagitis (7) Lipid disorder: Code(s): E78.9 - Disorder of lipoprotein metabolism, unspecified (8) Hypothyroid: Code(s): E03.9 - Hypothyroidism, unspecified Qualifiers: Hypothyroidism type: unspecified Qualified Code(s): E03.9 - Hypothyroidism, unspecified (9) REM sleep behavior disorder: Code(s): G47.52 - REM sleep behavior disorder Plan Patient is 72-year-old female came in today for her regular follow-up appointment Patient tells me that when she is sleeping she act out by moving her legs and screaming sometimes. Patient says that she has always been like that, and her mother was also like that. So she thought it is normal. Discussed with the patient that this is a REM sleep behavior disorder and we have a medication to treat that. I have sent clonazepam 0.5 mg that she can take 30 minutes before bedtime. Patient is aware of side effects like , this medication has a risk of being habit forming, slowing of relfexes, dizziness, and its controlled in nature, will need 3 M visit Patient had total hip replacement right side and is doing very well chronic kidney disease stage 2.? Patient says that she ran out of amlodipine and her additional political scientist has labs she has not seen the new political scientist she is requesting if I can fill it. Medications sent Patient have rheumatoid arthritis, patient is aware that she is not supposed to take NSAIDs Her blood pressure is stable hydrochlorothiazide is from PCP office She is seeing catalogue clerk for her ongoing problem of osteoporosis and parathyroidism.? Moods are stable patient is on Paxil.? Lipid control with atorvastatin.? Patient is also on levothyroxine for hypothyroidism.? BMI is elevated patient is severe and she is trying to lose weight. Follow-up 3 months?? Medications: New clonazepam administer 30 minutes before bedtime 0.25 mg (1/2 x 0.5 mg) PO BEDTIME 30 tabs 2RF REM sleep disorder amlodipine 5 mg PO DAILY 90 tabs 0RF Coding Level of Care Code Est Pt Level 4 (39543) Diagnoses Impaired fasting blood sugar R73.01 Recurrent major depressive disorder, in full remission F33.42 Active/Remission status: in full remission Vitamin D deficiency E55.9 Osteoporosis, unspecified osteoporosis type, unspecified pathological fracture presence M81.0 Osteoporosis type: unspecified Presence of current pathological fracture: unspecified Hypertension, essential I10 Chronic GERD K21.9 Lipid disorder E78.9 Hypothyroidism, unspecified type E03.9 Hypothyroidism type: unspecified REM sleep behavior disorder G47.52 Additional Codes JILLIAN-7 Assessment Billing - IJLLIAN-7 Assessment Tool: JILLIAN-7 Assessment [id number] ([id number])
== END 2023-04-30 09:07 | disposition home or self-care (01) ==
PROVIDERS: PCP Internal Medicine; Visit Provider Internal Medicine
DX: R73.01 Impaired fasting glucose (principal); F33.42 Major depressive disorder, recurrent, in full remission; E55.9 Vitamin D deficiency, unspecified; M81.0 Age-related osteoporosis without current pathological fracture; I10 Essential (primary) hypertension; K21.9 Gastro-esophageal reflux disease without esophagitis; E78.9 Disorder of lipoprotein metabolism, unspecified; E03.9 Hypothyroidism, unspecified; G47.52 REM sleep behavior disorder
CPT/HCPCS: 99214

== ENCOUNTER 2023-05-18 07:44 | Outpatient (REF) | payer MEDICARE, SELFPAY ==
[2023-05-18 11:33] LABS: Alanine Aminotransferase 37 U/L (0-31); Albumin Level 4.3 g/dL (3.5-5.0); Alkaline Phosphatase 91 U/L (39-117); Anion Gap 17 (12-20); Aspartate Amino Transferase 41 U/L (5-31); Bilirubin Total 0.6 mg/dL (0.0-1.0); Blood Urea Nitrogen 13 mg/dL (9-16); Calcium 10.2 mg/dL (8.4-10.2); Carbon Dioxide 27 mmol/L (22-29); Chloride 100 mmol/L (96-108); Estimated Glomerular Filt Rate > 60; Glucose Random 134 mg/dL (60-115); Phosphorus 3.4 mg/dL (2.7-4.5); Potassium 3.9 mmol/L (3.3-5.1); Sodium 140 mmol/L (135-145)
[2023-05-18 11:50] LABS: Vitamin D 25-OH Total 42.7 ng/mL (>30)
[2023-05-20 11:04] LABS: Calcium (PTHI) 10.1 mg/dL (8.6-10.4); PTHI 52 pg/mL (16-77)
[2023-05-26 14:23] LABS: N-Telopeptide 36 (see note); NTXCreaRU 142 mg/dL (20-275)
== END 2023-05-18 07:45 | disposition home or self-care (01) ==
LOC: HO.HMGCLDS 07:44
PROVIDERS: PCP Internal Medicine; Visit Provider Internal Medicine
DX: M81.0 Age-related osteoporosis without current pathological fracture (principal); E55.9 Vitamin D deficiency, unspecified
CPT/HCPCS: 36415; 80053; 82306; 82523; 83970; 84100

== ENCOUNTER 2023-05-22 15:49 | Outpatient (AMB) | payer MEDICARE, SELFPAY ==
[2023-05-22 15:50] VITALS: BP 134/86; PULSE 86; BMI 36.0
--- NOTE | 2023-05-22 15:50 | MHC.OFFVIS ---
Intake Vital Signs 05/22/23 15:50 Height 4 ft 11 in Weight 178 lb 5.663 oz BMI 36.0 BP 134/86 Blood Pressure Location Lt brachial Position Sitting Pulse 86 Pulse Source Pulse Oximeter Intake Visit Reasons: Osteoporosis Intake Note: New patient to Dr. Preciado present today for Osteoporosis follow up visit. Previously followed by Dr. Shea. 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 Accompanied by: Self / Same As Patient Allergies tetanus toxoid, adsorbed [Tetanus Toxoid,Adsorbed] Allergy (Severe, Verified 05/22/23 15:57) SEVERE SWELLING amoxicillin [Augmentin] Allergy (Unknown, Verified 05/22/23 15:57) Unknown clavulanic acid [Augmentin] Allergy (Unknown, Verified 05/22/23 15:57) Unknown Tetanus Allergy (Unknown, Uncoded 12/12/22 09:05) swelling Tetanus Immune Globulin Allergy (Unknown, Uncoded 12/12/22 09:05) Unknown From Augmentin Adverse Reaction (Severe, Uncoded 12/12/22 09:05) SEVERE N/V Medication List - Last Reconciled 05/22/23 by Parag Preciado MD amlodipine 5 mg PO DAILY aspirin 81 mg PO DAILY atorvastatin 40 mg PO DAILY 90 days calcium citrate-vitamin D3 315 mg-5 mcg (200 unit) 1 tab PO BID 30 days denosumab (Prolia) 60 mg subcut [id number] hydrochlorothiazide 25 mg PO QAM 90 days latanoprost 0.005% 1 drp ophthalmic (eye) QPM levothyroxine 88 mcg PO DAILY 90 days paroxetine HCl 40 mg PO QAM 90 days timolol maleate 0.5% drps ophthalmic (eye) DAILY HPI HPI Comments History of Present Illness Details 72 YO Female with PMHx Osteoporosis, Hypothyroidism, HTN, HLD who is seen in F/U for Osteoporosis. Patient last saw Dr. Shea on 12/12/2022 Was first diagnosed with Osteoporosis in 2018 when her DXA revealed progression from Osteopenia. Was diagnosed with Osteopenia approximately 10 years ago. She is currently being treated with Prolia and has had 5 doses (last 04/05/2022). Has tolerated Prolia well. She underwent a total hip replacement 09/14/2022, and Prolia was delayed due to awaiting integration of hardware. She reports hardware has integrated well. She has never had a broken bone. Has lost 1 inch in height. Is using Calcium Carbonate 600 mg PO BID. She sometimes forgets her second dose of the day. Has 1 serving of dairy daily in the form of cheese. Is taking Vitamin D 2000 IU daily. Has never used any anticoagulant medication or oral glucocorticoids but did have steroid knee and shoulder injections. Denies any antiepileptic use. Does use omeprazole daily for her severe GERD. , did not breastfeed. Menopause at the age 59. Never used HRT. Has dental cleanings q 6 months. Had a dental extraction in early June 2020. Does not exercise. Had bilateral knee replacements January 2020. Does not do resistance training. Mother with severe Osteoporosis was treated with Fosamax and had Osteonecrosis of the jaw. Denies any history of kidney stones. Denies family history of kidney stones. DXA: 03/21/2020 FINDINGS: AP SPINE L1-L4: BMD 1.170 g/cm2, Z-score 1.0, T-score -0.1, normal. LEFT FEMUR, NECK: BMD 0.681 g/cm2, Z-score -1.3, T-score -2.6, osteoporosis. LEFT FEMUR, TOTAL: BMD 0.840 g/cm2, Z-score -0.4, T-score -1.3, osteopenia. Labs: Laboratory Tests 10/02/22 12/04/22 08:54 08:54 Sodium 142 Potassium 4.7 Creatinine 0.98 Estimated GFR 56 Calcium 10.0 Albumin 4.4 TSH 0.52 [facility] Medical History Vitamin D deficiency Osteoporosis Brittle nails Bilateral ankle pain Urinary incontinence, mixed Asthma Hypertension, essential Depression Chronic GERD Lipid disorder Hypothyroid Surgical History History of hip surgery History of surgery on right wrist Hx of tubal ligation Hx of cataract removal with insertion of prosthetic lens History of arthroscopy of left shoulder Hx of repair of right rotator cuff H/O knee surgery Family History Father No problems noted. Mother No problems noted. Social History Housing: House Alcohol intake: current Alcohol intake frequency: a few times a month Patient Tobacco Use Status: Never used Tobacco e-Cigarette/Vaping Use: Never Used Second Hand Smoke Exposure: No Current occupational status: retired Cognitive needs: No Hearing needs: No Vision needs: Yes Physical Exam Vital Signs: Last Vital Signs Pulse 86 05/22/23 15:50 BP 134/86 05/22/23 15:50 BMI result Body Mass Index 36.0 Assessment & Plan Assessment & Plan (1) Osteoporosis: Code(s): M81.0 - Age-related osteoporosis without current pathological fracture Qualifiers: Osteoporosis type: unspecified Presence of current pathological fracture: unspecified Qualified Code(s): M81.0 - Age-related osteoporosis without current pathological fracture Plan: This 73-year-old white female with history of osteoporosis a negative secondary workup. She is currently being treated with Prolia 60 mg Q 6 months Plan is to continue the Prolia and consider transitioning to either an oral or intravenous bisphosphonate. After a long talk with the patient, we decided to transition to Reclast infusion which we given 1 month when the Prolia is due. Will follow urine NTX after Reclast q.3 months to avoid rebound effect. Patient should continue with calcium and vitamin-D supplementation Orders: Orders Collagen Crosslinks NTX 4 Months M81.0 - Age-related osteoporosis without current pathological fracture Coding Level of Care Code Est Pt Level 3 (34274) Diagnoses Osteoporosis, unspecified osteoporosis type, unspecified pathological fracture presence M81.0 Osteoporosis type: unspecified Presence of current pathological fracture: unspecified
== END 2023-05-22 16:33 | disposition home or self-care (01) ==
PROVIDERS: PCP Internal Medicine; Visit Provider Internal Medicine Endocrinology, Diabetes & Metabolism
DX: M81.0 Age-related osteoporosis without current pathological fracture (principal)
CPT/HCPCS: 99213

== ENCOUNTER → 2023-05-22 15:49 | Outpatient (BNVA) | payer MEDICARE, SELFPAY | PROVIDERS: PCP Internal Medicine; Visit Provider Internal Medicine Endocrinology, Diabetes & Metabolism | DX: M81.0 Age-related osteoporosis without current pathological fracture (principal) | CPT/HCPCS: 99212 ==

== ENCOUNTER 2023-06-24 09:43 | Outpatient (REF) | payer MEDICARE, SELFPAY ==
[2023-06-24 11:06] LABS: Blood Urea Nitrogen 11 mg/dL (9-16); Estimated Glomerular Filt Rate > 60
== END 2023-06-24 09:44 | disposition home or self-care (01) ==
LOC: HO.MDS 09:43
PROVIDERS: Visit Provider Internal Medicine Endocrinology, Diabetes & Metabolism
DX: M81.0 Age-related osteoporosis without current pathological fracture (principal)
CPT/HCPCS: 36415; 82565; 84520; 96365; J3489

== ENCOUNTER 2023-08-07 11:07 | Outpatient (AMB) | payer MEDICARE, SELFPAY ==
--- NOTE | 2023-08-07 11:15 | A.OFFVIS_ITS ---
Intake Vital Signs 08/07/23 11:16 Height 4 ft 11 in Weight 183 lb 6 oz BMI 37.0 BP 132/74 Blood Pressure Location Lt brachial Position Sitting Pulse 85 Pulse Source Pulse Oximeter Pulse Oximetry (%) 95 Oxygen Delivery Method Room Air Intake Visit Reasons: [facility] G0439 07/12/21 Allergies tetanus toxoid, adsorbed [Tetanus Toxoid,Adsorbed] Allergy (Severe, Verified 08/07/23 11:16) SEVERE SWELLING amoxicillin [Augmentin] Allergy (Unknown, Verified 08/07/23 11:16) Unknown clavulanic acid [Augmentin] Allergy (Unknown, Verified 08/07/23 11:16) Unknown Tetanus Allergy (Unknown, Uncoded 12/12/22 09:05) swelling Tetanus Immune Globulin Allergy (Unknown, Uncoded 12/12/22 09:05) Unknown From Augmentin Adverse Reaction (Severe, Uncoded 12/12/22 09:05) SEVERE N/V Medication List - Last Reconciled 08/07/23 by Princess Fairchild MD amlodipine 5 mg PO DAILY aspirin 81 mg PO DAILY atorvastatin 40 mg PO DAILY 90 days calcium citrate-vitamin D3 315 mg-5 mcg (200 unit) 1 tab PO BID 30 days hydrochlorothiazide 25 mg PO QAM 90 days latanoprost 0.005% 1 drp ophthalmic (eye) QPM levothyroxine 88 mcg PO DAILY 90 days paroxetine HCl 40 mg PO QAM 90 days timolol maleate 0.5% drps ophthalmic (eye) DAILY HPI [facility] G0439 07/12/21 HPI Details Patient is a 73-year-old female came in for Medicare wellness visit and regular follow-up appointment Blood pressure : Stable with amlodipine 5 mg and hydrochlorothiazide 25 mg, patient is tolerating medication no side effects Continue levothyroxine 88 mcg TSH is stable. GERD is stable with omeprazole 20 mg Patient is also on Paxil 40 mg for mood stabilizer. BMI is elevated need to lose weight. Patient is prediabetic, we will be checking hemoglobin A1c Lipid disorder: Continue atorvastatin 40 mg daily Patient has chronic urine incontinence and sometimes also have fecal soiling, she wears pull-up diapers especially at night Due for labs Patient sees endocrinology [facility] for the management of osteopor osis Patient have a history of rheumatoid arthritis , that history was provided by the patient January of last year, however she is stable off medications Follow-up 3 months HPI Comments History of Present Illness Details AWV Medical/social history reviewed Past medical history reviewed [place] of care / care team list updated Surgical/ hospitalization history reviewed Current medications including OTC and supplements reviewed Family history reviewed Tobacco controlled form updated Alcohol use form updated Illicit drug use in social history reviewed Current diagnosis of depression ?screening updated Appropriate PHQ 2/PHQ-9 completed . Vital signs reviewed Alcohol tobacco drug use reviewed and discussed . MMSE completed . ? Fall risk: ?Assessed Fall history: ?None Have you had any falls with injury in the past year?? No Have you had 2 or more falls in the past year?? No Fall risk assessment completed Home safety discussed with the patient Functional ability assessed and discussed and documented Activities of daily living reviewed and appropriate actions taken . HRA filled out by the patient and reviewed by provider and scanned . Appropriate written screening schedule established . Any health advise needed provided . Advance care planning discussed with the patient , necessary paperwork filled Examination IPPE/AWE: Balance intact Romberg intact Tandem walk Failed walk-in turn intact rise from sit to stand intact . ?Hearing ?whisper test pass . Medication list reviewed, patient is stable on medications All other providers patient is seeing discussed and noted . [facility] Medical History Vitamin D deficiency Osteoporosis Brittle nails Bilateral ankle pain Urinary incontinence, mixed Asthma Hypertension, essential Depression Chronic GERD Lipid disorder Hypothyroid Surgical History History of hip surgery History of surgery on right wrist Hx of tubal ligation Hx of cataract removal with insertion of prosthetic lens History of arthroscopy of left shoulder Hx of repair of right rotator cuff H/O knee surgery Family History Father No problems noted. Mother No problems noted. Social History Housing: House Alcohol intake: current Alcohol intake frequency: a few times a month Patient Tobacco Use Status: Never used Tobacco e-Cigarette/Vaping Use: Never Used Second Hand Smoke Exposure: No Current occupational status: retired Cognitive needs: No Hearing needs: No Vision needs: Yes Questionnaire Medicare Wellness Checkup [age] What gender do you identify with?: female During the past 4 weeks, how much have you been bothered by emotional problems such as feeling anxious, depressed, irritable, sad or downhearted, and blue?: slightly During the past 4 weeks, has your physical & emotional health limited your socia l activities with family, friends, neighbors, or groups?: not at all During the past 4 weeks, how much bodily pain have you generally had?: mild pain During the past 4 weeks, was someone available to help you if you needed & wanted help?: yes, as much as I wanted During the past 4 weeks, what was the hardest physical activity you could do for at least 2 minutes?: moderate Can you get to places out of walking distance without help? (For eg., can you travel alone on buses, taxis or drive your car?): Yes Can you go shopping for groceries or clothes without someone's help?: Yes Can you prepare your own meals?: Yes Can you do your housework without help?: Yes Because of any health problems, do you need the help of another person with your personal care needs such as eating, bathing, dressing or getting around the house?: No Can you handle your own money without help?: Yes During the past 4 weeks, how would you rate your health in general?: very good During the past 4 weeks how have things been going for you?: pretty well Are you having difficulties driving your car?: no Do you always fasten your seat belt when you are in a car?: yes, usually During past 4 weeks, have you been bothered by the following: never: Sexual problems?, Trouble eating well?, Teeth or denture problems? and Problems using the telephone? and sometimes: Falling or dizzy when standing up and Tiredness or fatigue? Have you fallen 2 or more times in the past year?: Yes Are you afraid of falling?: Yes Are you a smoker?: no During the past 4 weeks, how many drinks of wine, beer, or other alcoholic beverages did you have?: 1 drink or less per week Do you exercise for about 20 minutes 3 or more times a week?: no, I usually do not exercise this much Have you been given information to help with the following?: no: Hazards in your house that might hurt you? and no: Keeping track of your medications? How often do you have trouble taking medicines the way you have been told to take them?: I always take medicine as prescribed How confident are you that you can control & manage most of your health problems?: very confident What is your race?: White Mini Mental State Exam (MMSE) Orientation What is the (year) (season) (date) (day) (month)?: year, season, date, day and month Where are we (state) (county) (town or city) (hospital) (floor)?: state, county, town or city, hospital/clinic and floor Score Score: 10 Activity of Daily Living Bathing - sponge bath, tub bath or shower: receives no assistance (gets in/out by self, if usual bathing means Dressing - getting clothes from closets & drawers, including inner/outer garments & fasteners.: gets clothes & gets completely dressed without help Toileting - going to the 'toilet room' for urine/bowel elimination & cleaning self/arranging clothes: goes to toilet room, cleans self, arranges clothes without help Transfer: moves in & out of bed and chair without help (may use support object) Continence: has occasional 'accidents' Feeding: feeds self without help Total Score: 0 Information obtained from: patient Using telephone: independent Traveling: independent Shopping: independent Preparing meals: independent Housework: independent Taking medicine: independent Managing money: independent PHQ-9 Over the last 2 weeks, how often have you been bothered by any of the following problems? 1. Little interest or pleasure in doing things: several days 2. Feeling down, depressed, or hopeless: several days 3. Trouble falling or staying asleep, or sleeping too much: several days 4. Feeling tired or having little energy: several days 5. Poor appetite or overeating: not at all 6. Feeling bad about yourself - or that you are a failure or have let yourself or your family down: not at all 7. Trouble concentrating on things, such as reading the newspaper or watching television: not at all 8. Moving or speaking so slowly that other people could have noticed. Or the opposite - being so fidgety or restless that you have been moving around a lot more than usual: not at all 9. Thoughts that you would be better off or of hurting yourself in some way: not at all Total score: 4 Depression Screening Interpretation: Negative Depression Screening Done: Yes 50123 - PHQ-9 Billing: Yes Source: Developed by Drs. Parag Overton, Rabia Clarke, Kennedy Casey and colleagues, with an educational trinidad from [place] [employer]. Review of Systems Const Denies chills and Denies fever(s) ENT Denies epistaxis and Denies nasal discharge Card Denies chest pain Resp Denies chest congestion, Denies cough and Denies hemoptysis GI Denies diarrhea and Denies nausea Skin/Breast Denies rash Neuro Reports no additional complaints Psych Reports no additional complaints Endo Reports no additional complaints Physical Exam Vital Signs: Last Vital Signs Pulse 85 08/07/23 11:16 BP 132/74 08/07/23 11:16 Pulse Ox 95 08/07/23 11:16 Oxygen Delivery Method Room Air 08/07/23 11:16 BMI result Body Mass Index 37.0 Const General: cooperative, comfortable and no acute distress Orientation/consciousness: patient oriented x3 HEENT Head: Yes normocephalic Eyes General: appearance normal, both eyes and all related structures Neck Other: Supple Neck: Yes supple Resp Effort & Inspection: normal respiratory effort, no cough and no stridor Cardio Rhythm: regular rhythm Heart sounds: S1 normal heart sound present and S2 normal heart sound present Skin General skin exam: turgor normal Neuro Other: Motor sensory intact General: patient oriented x3, tone normal and moves all extremities Extrem Other: No lower extremity swelling. Right lower extremity: no edema Left lower extremity: no edema Psych Other: Normal effect, speech clear Assessment & Plan Assessment & Plan (1) Medicare annual wellness visit, subsequent: Code(s): Z00.00 - Encounter for general adult medical examination without abnormal findings (2) Major depression, recurrent: Code(s): F33.9 - Major depressive disorder, recurrent, unspecified Qualifiers: Active/Remission status: in full remission Qualified Code(s): F33.42 - Major depressive disorder, recurrent, in full remission (3) Impaired fasting blood sugar: Code(s): R73.01 - Impaired fasting glucose (4) Nephropathy: Code(s): N28.9 - Disorder of kidney and ureter, unspecified (5) Osteoporosis: Code(s): M81.0 - Age-related osteoporosis without current pathological fracture Qualifiers: Osteoporosis type: unspecified Presence of current pathological fracture: unspecified Qualified Code(s): M81.0 - Age-related osteoporosis without current pathological fracture (6) Hypertension, essential: Code(s): I10 - Essential (primary) hypertension (7) Chronic GERD: Code(s): K21.9 - Gastro-esophageal reflux disease without esophagitis (8) Lipid disorder: Code(s): E78.9 - Disorder of lipoprotein metabolism, unspecified (9) Hypothyroid: Code(s): E03.9 - Hypothyroidism, unspecified Qualifiers: Hypothyroidism type: unspecified Qualified Code(s): E03.9 - Hyp othyroidism, unspecified (10) Vitamin D deficiency: Code(s): E55.9 - Vitamin D deficiency, unspecified (11) Anemia: Code(s): D64.9 - Anemia, unspecified Qualifiers: Anemia type: other cause Other causes of anemia: chronic disease, other Qualified Code(s): D63.8 - Anemia in other chronic diseases classified elsewhere (12) Urinary and bowel incontinence: Code(s): R32 - Unspecified urinary incontinence; R15.9 - Full incontinence of feces (13) History of rheumatoid arthritis: Code(s): Z87.39 - Personal history of other diseases of the musculoskeletal system and connective tissue Plan Patient is a 73-year-old female came in for Medicare wellness visit and regular follow-up appointment Blood pressure : Stable with amlodipine 5 mg and hydrochlorothiazide 25 mg, patient is tolerating medication no side effects Continue levothyroxine 88 mcg TSH is stable. GERD is stable with omeprazole 20 mg Patient is also on Paxil 40 mg for mood stabilizer. BMI is elevated need to lose weight. Patient is prediabetic, we will be checking hemoglobin A1c Lipid disorder: Continue atorvastatin 40 mg daily Patient has chronic urine incontinence and sometimes also have fecal soiling, she wears pull-up diapers especially at night Due for labs Patient sees endocrinology [facility] for the management of osteoporosis Patient have a history of rheumatoid arthritis , that history was provided by the patient January of last year, however she is stable off medications Follow-up 3 months Orders: Orders Comprehensive [place]. Panel Fast Today D64.9 - Anemia, unspecified, E03.9 - Hypothyroidism, unspecified, E55.9 - Vitamin D deficiency, unspecified, E78.9 - Disorder of lipoprotein metabolism, unspecified, F33.9 - Major depressive disorder, recurrent, unspecified, I10 - Essential (primary) hypertension, K21.9 - Gastro-esophageal reflux disease without esophagitis, M81.0 - Age-related osteoporosis without current pathological fracture, N28.9 - Disorder of kidney and ureter, unspecified, R73.01 - Impaired fasting glucose Lipid Panel Today D64.9 - Anemia, unspecified, E03.9 - Hypothyroidism, unspecified, E55.9 - Vitamin D deficiency, unspecified, E78.9 - Disorder of lipoprotein metabolism, unspecified, F33.9 - Major depressive disorder, recurrent, unspecified, I10 - Essential (primary) hypertension, K21.9 - Gastro- esophageal reflux disease without esophagitis, M81.0 - Age-related osteoporosis without current pathological fracture, N28.9 - Disorder of kidney and ureter, unspecified, R73.01 - Impaired fasting glucose Complete Blood Count Auto Diff Today D64.9 - Anemia, unspecified, E03.9 - Hypothyroidism, unspecified, E55.9 - Vitamin D deficiency, unspecified, E78.9 - Disorder of lipoprotein metabolism, unspecified, F33.9 - Major depressive disorder, recurrent, unspecified, I10 - Essential (primary) hypertension, K21.9 - Gastro-esophageal reflux disease without esophagitis, M81.0 - Age-related osteoporosis without current pathological fracture, N28.9 - Disorder of kidney and ureter, unspecified, R73.01 - Impaired fasting glucose TSH reflex Free T4 Today D64.9 - Anemia, unspecified, E03.9 - Hypothyroidism, unspecified, E55.9 - Vitamin D deficiency, unspecified, E78.9 - Disorder of lipoprotein metabolism, unspecified, F33.9 - Major depressive disorder, recurrent, unspecified, I10 - Essential (primary) hypertension, K21.9 - Gastro- esophageal reflux disease without esophagitis, M81.0 - Age-related osteoporosis without current pathological fracture, N28.9 - Disorder of kidney and ureter, unspecified, R73.01 - Impaired fasting glucose Hemoglobin A1c Today R73.01 - Impaired fasting glucose Quality Reporting (2019) Depression/Bipolar (159/160/161/177) PHQ-9: Total score: 4 Coding Level of Care Code Medicare Subsequent (G0439) Est Pt Level 4 (50671) Diagnoses Medicare annual wellness visit, subsequent Z00.00 Recurrent major depressive disorder, in full remission F33.42 Active/Remission status: in full remission Impaired fasting blood sugar R73.01 Nephropathy N28.9 Osteoporosis, unspecified osteoporosis type, unspecified pathological fracture presence M81.0 Osteoporosis type: unspecified Presence of current pathological fracture: unspecified Hypertension, essential I10 Chronic GERD K21.9 Lipid disorder E78.9 Hypothyroidism, unspecified type E03.9 Hypothyroidism type: unspecified Vitamin D deficiency E55.9 Anemia in other chronic diseases classified elsewhere D63.8 Anemia type: other cause Other causes of anemia: chronic disease, other Urinary and bowel incontinence R32; R15.9 History of rheumatoid arthritis Z87.39 CPT Codes Advance Care Planning - Advance Care Planning discussion: On file, no changes ([id number]) Advance Care Planning Advance Care Planning discussion: On file, no changes
[2023-08-07 11:16] VITALS: BP 132/74; PULSE 85; O2SAT 95; BMI 37.0
== END 2023-08-07 12:43 | disposition home or self-care (01) ==
PROVIDERS: Visit Provider Internal Medicine
DX: Z00.00 Encounter for general adult medical examination without abnormal findings (principal); F33.42 Major depressive disorder, recurrent, in full remission; R73.01 Impaired fasting glucose; N28.9 Disorder of kidney and ureter, unspecified; M81.0 Age-related osteoporosis without current pathological fracture; I10 Essential (primary) hypertension; K21.9 Gastro-esophageal reflux disease without esophagitis; E78.9 Disorder of lipoprotein metabolism, unspecified; E03.9 Hypothyroidism, unspecified; E55.9 Vitamin D deficiency, unspecified; D63.8 Anemia in other chronic diseases classified elsewhere; R32 Unspecified urinary incontinence
CPT/HCPCS: 1123F; 99214; G0439

== ENCOUNTER 2023-09-06 10:54 | Outpatient (REF) | payer MEDICARE, SELFPAY ==
[2023-09-06 13:22] LABS: MANUAL DIFF FLAG NO
[2023-09-06 13:29] LABS: Basophils Absolute Auto 0.1 X10*3/uL (0.0-0.2); Basophils Percent Auto 1.1 % (0-2); Eosinophils Absolute Auto 0.2 X10*3/uL (0.0-0.4); Eosinophils Percent Auto 3.3 % (0-4); Hematocrit 36.2 % (37.0-47.0); Hemoglobin 11.5 g/dl (12.0-16.0); Imm Gran Abs Auto 0.02 X10*3/uL (0.00-0.03); Imm Gran Pct Auto 0.3 % (0.0-0.4); Lymphocytes Absolute Auto 1.8 X10*3/uL (1.2-4.9); Lymphocytes Percent Auto 25.2 % (20-40); Mean Corpuscular HGB Conc 31.8 g/dl (31.0-35.0); Mean Corpuscular Hemoglobin 25.8 pg (27.0-33.0); Mean Corpuscular Volume 81.3 fL (80.0-98.0); Mean Platelet Volume 10.3 fL (9.4-12.3); Monocytes Absolute Auto 0.4 X10*3/uL (0.1-1.2); Neutrophils Absolute Auto 4.5 x10*3/uL (2.0-8.3); Neutrophils Percent Auto 64.1 % (45-73); Platelet Count 386 X10*3/uL (160-400); Red Blood Count 4.45 X10*6/uL (4.20-5.50); Red Cell Distribution Width 14.6 % (11.0-16.0)
[2023-09-06 14:05] LABS: Alanine Aminotransferase 31 U/L (0-31); Alkaline Phosphatase 88 U/L (39-117); Anion Gap 16 (12-20); Aspartate Amino Transferase 26 U/L (5-31); Bilirubin Total 0.5 mg/dL (0.0-1.0); Blood Urea Nitrogen 13 mg/dL (9-16); Calcium 9.3 mg/dL (8.4-10.2); Carbon Dioxide 28 mmol/L (22-29); Chloride 100 mmol/L (96-108); Cholesterol 152 mg/dL (<200); Estimated Glomerular Filt Rate > 60; Glucose Fasting 148 mg/dL (60-99); HDL Cholesterol 37 mg/dL (>40); LDL Cholesterol Calculated 94 mg/dL (<100); Sodium 141 mmol/L (135-145); Total Protein 7.2 g/dL (6.5-8.0); Triglycerides 105 mg/dL (<150)
[2023-09-06 14:25] LABS: TSH reflex Free T4 0.51 uIU/mL (0.32-4.0)
[2023-09-06 15:04] LABS: Estimated Average Glucose 151 mg/dL; Hemoglobin A1c % 6.9 % (<6.0)
== END 2023-09-06 10:55 | disposition home or self-care (01) ==
LOC: HO.HMGCLDS 10:54
PROVIDERS: PCP Internal Medicine; Visit Provider Internal Medicine
DX: F33.9 Major depressive disorder, recurrent, unspecified (principal); N28.9 Disorder of kidney and ureter, unspecified; M81.0 Age-related osteoporosis without current pathological fracture; I10 Essential (primary) hypertension; K21.9 Gastro-esophageal reflux disease without esophagitis; E78.9 Disorder of lipoprotein metabolism, unspecified; E03.9 Hypothyroidism, unspecified; E55.9 Vitamin D deficiency, unspecified; D64.9 Anemia, unspecified; R73.01 Impaired fasting glucose
CPT/HCPCS: 36415; 80053; 80061; 83036; 84443; 85025

== ENCOUNTER 2023-09-09 11:38 | Outpatient (REF) | payer MEDICARE, SELFPAY ==
[2023-09-09 13:45] LABS: Anion Gap 14 (12-20); Carbon Dioxide 29 mmol/L (22-29); Chloride 100 mmol/L (96-108); Potassium 3.2 mmol/L (3.3-5.1); Sodium 140 mmol/L (135-145)
== END 2023-09-09 11:39 | disposition home or self-care (01) ==
LOC: HO.HMGCLDS 11:38
PROVIDERS: PCP Internal Medicine; Visit Provider Internal Medicine
DX: E87.6 Hypokalemia (principal)
CPT/HCPCS: 36415; 80051

== ENCOUNTER 2023-09-19 08:30 | Outpatient (REF) | payer MEDICARE, SELFPAY ==
[2023-09-24 08:44] LABS: N-Telopeptide 25 (see note); NTXCreaRU 161 mg/dL (20-275)
== END 2023-09-19 08:31 | disposition home or self-care (01) ==
LOC: HO.HMGCLNP 08:30
PROVIDERS: PCP Internal Medicine; Visit Provider Internal Medicine Endocrinology, Diabetes & Metabolism
DX: M81.0 Age-related osteoporosis without current pathological fracture (principal)
CPT/HCPCS: 82523

== ENCOUNTER 2023-09-23 11:33 | Outpatient (AMB) | payer MEDICARE, SELFPAY ==
--- NOTE | 2023-09-23 11:34 | MHC.OFFVIS ---
Intake Vital Signs 09/23/23 11:35 Height 4 ft 11 in Weight 189 lb 9.561 oz BMI 38.3 BP 140/72 H Blood Pressure Location Lt brachial Position Sitting Pulse 94 Pulse Source Pulse Oximeter Intake Visit Reasons: Osteoporosis-confirmed Intake Note: Patient present today for Osteoporosis follow up visit. Feed Crusher Required: No Accompanied by: Self / Same As Patient Allergies tetanus toxoid, adsorbed [Tetanus Toxoid,Adsorbed] Allergy (Severe, Verified 09/23/23 11:40) SEVERE SWELLING amoxicillin [Augmentin] Allergy (Unknown, Verified 09/23/23 11:40) Unknown clavulanic acid [Augmentin] Allergy (Unknown, Verified 09/23/23 11:40) Unknown Tetanus Allergy (Unknown, Uncoded 09/23/23 11:40) swelling Tetanus Immune Globulin Allergy (Unknown, Uncoded 09/23/23 11:40) Unknown From Augmentin Adverse Reaction (Severe, Uncoded 09/23/23 11:40) SEVERE N/V Medication List - Last Reconciled 09/23/23 by Parag Preciado MD amlodipine 5 mg PO DAILY aspirin 81 mg PO DAILY atorvastatin 40 mg PO DAILY 90 days calcium citrate-vitamin D3 315 mg-5 mcg (200 unit) 1 tab PO BID 30 days hydrochlorothiazide 25 mg PO QAM 90 days latanoprost 0.005% 1 drp ophthalmic (eye) QPM levothyroxine 88 mcg PO DAILY 90 days paroxetine HCl 40 mg PO QAM 90 days timolol maleate 0.5% drps ophthalmic (eye) DAILY HPI HPI Comments History of Present Illness Details 73 YO Female with PMHx Osteoporosis, Hypothyroidism, HTN, HLD who is seen in F/U for Osteoporosis. Was first diagnosed with Osteoporosis in 2018 when her DXA revealed progression from Osteopenia. Was diagnosed with Osteopenia approximately 10 years ago. She is currently being treated with Prolia and has had 5 doses (last 04/05/2022). Has tolerated Prolia well. She underwent a total hip replacement 09/14/2022, and Prolia was delayed due to awaiting integration of hardware. She reports hardware has integrated well. She has never had a broken bone. Has lost 1 inch in height. Is using Calcium Carbonate 600 mg PO BID. She sometimes forgets her second dose of the day. Has 1 serving of dairy daily in the form of cheese. Is taking Vitamin D 2000 IU daily. Has never used any anticoagulant medication or oral glucocorticoids but did have steroid knee and shoulder injections. Denies any antiepileptic use. Does use omeprazole daily for her severe GERD. , did not breastfeed. Menopause at the age 59. Never used HRT. Has dental cleanings q 6 months. Had a dental extraction in early June 2020. Does not exercise. Had bilateral knee replacements January 2020. Does not do resistance training. Mother with severe Osteoporosis was treated with Fosamax and had Osteonecrosis of the jaw. Denies any history of kidney stones. Denies family history of kidney stones. DXA: 03/21/2020 FINDINGS: AP SPINE L1-L4: BMD 1.170 g/cm2, Z-score 1.0, T-score -0.1, normal. LEFT FEMUR, NECK: BMD 0.681 g/cm2, Z-score -1.3, T-score -2.6, osteoporosis. LEFT FEMUR, TOTAL: BMD 0.840 g/cm2, Z-score -0.4, T-score -1.3, osteopenia. Labs: Laboratory Tests 10/02/22 12/04/22 08:54 08:54 Sodium 142 Potassium 4.7 Creatinine 0.98 Estimated GFR 56 Calcium 10.0 Albumin 4.4 TSH 0.52 [facility] Medical History Vitamin D deficiency Osteoporosis Brittle nails Bilateral ankle pain Urinary incontinence, mixed Asthma Hypertension, essential Depression Chronic GERD Lipid disorder Hypothyroid Surgical History History of hip surgery History of surgery on right wrist Hx of tubal ligation Hx of cataract removal with insertion of prosthetic lens History of arthroscopy of left shoulder Hx of repair of right rotator cuff H/O knee surgery Family History Father No problems noted. Mother No problems noted. Social History Housing: House Alcohol intake: current Alcohol intake frequency: a few times a month Patient Tobacco Use Status: Never used Tobacco e-Cigarette/Vaping Use: Never Used Second Hand Smoke Exposure: No Current occupational status: retired Cognitive needs: No Hearing needs: No Vision needs: Yes Assessment & Plan Assessment & Plan (1) Osteoporosis: Code(s): M81.0 - Age-related osteoporosis without current pathological fracture Qualifiers: Osteoporosis type: unspecified Presence of current pathological fracture: unspecified Qualified Code(s): M81.0 - Age-related osteoporosis without current pathological fracture Plan: This 73-year-old white female with history of osteoporosis a negative secondary workup. She completed a course of Prolia and received a Reclast infusion she wants to go. Urine NTX is pending Plan is to should continue with calcium and vitamin-D supplementation. Will await urine NTX if suppressed we will continue to follow. If urine NTX rises would give another dose of Reclast Orders: Orders Collagen Crosslinks NTX 6 Months M81.0 - Age-related osteoporosis without current pathological fracture Coding Level of Care Code Est Pt Level 3 (91963) Diagnoses Osteoporosis, unspecified osteoporosis type, unspecified pathological fracture presence M81.0 Osteoporosis type: unspecified Presence of current pathological fracture: unspecified
[2023-09-23 11:35] VITALS: BP 140/72; PULSE 94; BMI 38.3
== END 2023-09-23 11:46 | disposition home or self-care (01) ==
PROVIDERS: PCP Internal Medicine; Visit Provider Internal Medicine Endocrinology, Diabetes & Metabolism
DX: M81.0 Age-related osteoporosis without current pathological fracture (principal)
CPT/HCPCS: 99213

== ENCOUNTER → 2023-09-23 11:33 | Outpatient (BNVA) | payer MEDICARE, SELFPAY | PROVIDERS: PCP Internal Medicine; Visit Provider Internal Medicine Endocrinology, Diabetes & Metabolism | DX: M81.0 Age-related osteoporosis without current pathological fracture (principal) | CPT/HCPCS: 99212 ==

== ENCOUNTER 2023-11-13 13:33 | Outpatient (AMB) | payer MEDICARE, SELFPAY ==
[2023-11-13 13:37] VITALS: BP 110/70; PULSE 87; O2SAT 96; BMI 37.2
--- NOTE | 2023-11-13 13:37 | MHC.PC.OV ---
Vital Signs 11/13/23 13:37 Height 4 ft 11 in Weight 184 lb BMI 37.2 BP 110/70 Blood Pressure Location Rt brachial Position Sitting Pulse 87 Pulse Source Pulse Oximeter Pulse Oximetry (%) 96 Oxygen Delivery Method Room Air Intake Visit Reasons: 9m follow up Allergies tetanus toxoid, adsorbed [Tetanus Toxoid,Adsorbed] Allergy (Severe, Verified 11/13/23 13:38) SEVERE SWELLING amoxicillin [Augmentin] Allergy (Unknown, Verified 11/13/23 13:38) Unknown clavulanic acid [Augmentin] Allergy (Unknown, Verified 11/13/23 13:38) Unknown Tetanus Allergy (Unknown, Uncoded 11/13/23 13:38) swelling Tetanus Immune Globulin Allergy (Unknown, Uncoded 11/13/23 13:38) Unknown From Augmentin Adverse Reaction (Severe, Uncoded 11/13/23 13:38) SEVERE N/V Medication List - Last Reconciled 11/13/23 by Princess Fairchild MD amlodipine 5 mg PO DAILY aspirin 81 mg PO DAILY atorvastatin 40 mg PO DAILY 90 days calcium citrate-vitamin D3 315 mg-5 mcg (200 unit) 1 tab PO BID 30 days hydrochlorothiazide 25 mg PO QAM 90 days latanoprost 0.005% 1 drp ophthalmic (eye) QPM levothyroxine 88 mcg PO DAILY 90 days paroxetine HCl 40 mg PO QAM 90 days timolol maleate 0.5% drps ophthalmic (eye) DAILY Tobacco use date assessed: 11/13/23 Fall risk assessment: 1 Fall in past year Last assessed Fall Risk: 11/13/23 Dental Screening Dental Screen Date: 11/13/23 Did you have a dental visit in the last 12 months?: Yes Did you have a dental problem in the last 6 months where you did not have access to dental care?: No Was dental information given to patient?: Patient has dentist HPI 9m follow up HPI Details Patient is 73-year-old female came in today for her regular follow-up appointment Patient says that she has noticed she is having word-finding difficulty she will be having a conversation and will stop in the middle as she can find the words She would like to be evaluated by neurologist. Patient tells me that when she is sleeping she act out by moving her legs and screaming sometimes. Patient says that she has always been like that, and her mother was also like that. So she thought it is normal. Discussed with the patient that this is a REM sleep behavior disorder and we have a medication to treat that. She will discuss it further with Neurology Patient had total hip replacement right side and is doing very well chronic kidney disease stage 2.? She is on amlodipine 5 mg, patient is tolerating medication however sometimes at the end of the day she will have little bit of ankle swelling as a side effect Patient have rheumatoid arthritis, patient is aware that she is not supposed to take NSAIDs Her blood pressure is stable hydrochlorothiazide is from PCP office She is seeing decating machine operator for her ongoing problem of osteoporosis and parathyroidism.? Moods are stable patient is on Paxil.? Lipid control with atorvastatin.? Patient is also on levothyroxine for hypothyroidism.? BMI is elevated patient is having difficulty losing weight Follow-up 3 months?? PFSH Medical History Vitamin D deficiency Osteoporosis Brittle nails Bilateral ankle pain Urinary incontinence, mixed Asthma Hypertension, essential Depression Chronic GERD Lipid disorder Hypothyroid Surgical History History of hip surgery History of surgery on right wrist Hx of tubal ligation Hx of cataract removal with insertion of prosthetic lens History of arthroscopy of left shoulder Hx of repair of right rotator cuff H/O knee surgery Family History Father No problems noted. Mother No problems noted. Social History Housing: House Alcohol intake: current Alcohol intake frequency: a few times a month Patient Tobacco Use Status: Never used Tobacco e-Cigarette/Vaping Use: Never Used Second Hand Smoke Exposure: No service: No Current occupational status: retired Cognitive needs: No Hearing needs: No Vision needs: Yes Questionnaire PHQ-9 Over the last 2 weeks, how often have you been bothered by any of the following problems? 1. Little interest or pleasure in doing things: not at all 2. Feeling down, depressed, or hopeless: not at all 3. Trouble falling or staying asleep, or sleeping too much: not at all 4. Feeling tired or having little energy: not at all 5. Poor appetite or overeating: not at all 6. Feeling bad about yourself - or that you are a failure or have let yourself or your family down: not at all 7. Trouble concentrating on things, such as reading the newspaper or watching television: not at all 8. Moving or speaking so slowly that other people could have noticed. Or the opposite - being so fidgety or restless that you have been moving around a lot more than usual: not at all 9. Thoughts that you would be better off or of hurting yourself in some way: not at all Total score: 0 Depression Screening Interpretation: Negative Depression Screening Done: Yes 11507 - PHQ-9 Billing: Yes Source: Developed by Drs. Parag Overton, Rabia Clarke, Kennedy Casey and colleagues, with an educational trinidad from [employer]. Thrive Questionnaire Date Thrive assessed: 11/13/23 I am a: Patient What is your living situation today?: I have a steady place to live Within the past 12 months, did the food you bought not last and you didn't have the money to get more?: Never true Within the past 12 months, did you worry whether your food would run out before you got money to buy more?: Never true Do you have trouble paying for medicines?: No Do you have trouble getting transportation to medical appointments?: No Do you have trouble paying your heating and electricity bill?: No Do you have trouble taking care of your child, family member or friend?: No Do you have trouble with day-to-day activities such as bathing, preparing meals, shopping, managing finances, etc.?: No Are you currently unemployed and looking for a job?: No Are you interested in more education?: No THRIVE Score: 0 AUDIT C Alcohol Use Questionnaire (AUDIT-C) 1. How often do you have a drink containing alcohol?: Monthly or less 2. How many drinks containing alcohol do you have on a typical day when you are drinking?: 1 or 2 3. How often do you have six or more drinks on one occasion?: Never Total Score: 1 JILLIAN-7 AMB Questionnaire JILLIAN-7 Date JILLIAN - 7 assessed: 11/13/23 Feeling nervous, anxious, or on edge: 0 = Not at all Not being able to stop or control worryin = Not at all Worrying too much about different things: 0 = Not at all Trouble relaxin = Not at all Being so restless that it is hard to sit still: 0 = Not at all Becoming easily annoyed or irritable: 0 = Not at all Feeling afraid as if something awful might happen: 0 = Not at all Total JILLIAN-7 score (0-4 normal; 5-9 mild; 10-14 moderate; 15-21 severe): 0 Source: Developed by Drs. Parag Overton, Rabia Clarke, Kennedy Casey and colleagues, with an educational trinidad from [employer]. Review of Systems Const Denies chills and Denies fever(s) ENT Denies epistaxis and Denies nasal discharge Card Denies chest pain Resp Denies chest congestion, Denies cough and Denies hemoptysis GI Denies diarrhea and Denies nausea Skin/Breast Denies rash Neuro Reports no additional complaints Psych Reports no additional complaints Endo Reports no additional complaints Physical exam (Primary Care) Vital Signs: Last Vital Signs Pulse 87 11/13/23 13:37 BP 110/70 11/13/23 13:37 Pulse Ox 96 11/13/23 13:37 Oxygen Delivery Method Room Air 11/13/23 13:37 BMI result Body Mass Index 37.2 Tobacco/Smoking Status: Tobacco use Status Tobacco use date assessed 11/13/23 11/13/23 13:41 Patient Tobacco Use Status Never used Tobacco 11/13/23 13:41 e-Cigarette/Vaping Use Never Used 11/13/23 13:41 PHQ-9: PHQ-9 Score PHQ-9: Total score 0 11/13/23 14:03 Depression Screening Interpretation: Negative Thrive Assessment: Date of Thrive Assessment Date Thrive assessed 11/13/23 11/13/23 13:41 Const General: cooperative, comfortable and no acute distress Orientation/consciousness: patient oriented x3 HENMT Head: Yes normocephalic Eyes General: appearance normal, both eyes and all related structures Neck Neck: Yes supple Resp Effort & Inspection: normal respiratory effort, no cough and no stridor Cardio Rhythm: regular rhythm Heart sounds: S1 normal heart sound present and S2 normal heart sound present Skin General skin exam: turgor normal Neuro General: patient oriented x3, tone normal and moves all extremities Extrem Right lower extremity: no edema Left lower extremity: no edema Assessment and Plan Assessment & Plan (1) Word finding difficulty: Code(s): R47.89 - Other speech disturbances (2) Low blood potassium: Code(s): E87.6 - Hypokalemia (3) Major depression, recurrent: Code(s): F33.9 - Major depressive disorder, recurrent, unspecified Qualifiers: Active/Remission status: in full remission Qualified Code(s): F33.42 - Major depressive disorder, recurrent, in full remission (4) Vitamin D deficiency: Code(s): E55.9 - Vitamin D deficiency, unspecified (5) Osteoporosis: Code(s): M81.0 - Age-related osteoporosis without current pathological fracture Qualifiers: Osteoporosis type: unspecified Presence of current pathological fracture: unspecified Qualified Code(s): M81.0 - Age-related osteoporosis without current pathological fracture (6) Hypertension, essential: Code(s): I10 - Essential (primary) hypertension (7) Chronic GERD: Code(s): K21.9 - Gastro-esophageal reflux disease without esophagitis (8) Lipid disorder: Code(s): E78.9 - Disorder of lipoprotein metabolism, unspecified (9) Hypothyroid: Code(s): E03.9 - Hypothyroidism, unspecified Qualifiers: Hypothyroidism type: unspecified Qualified Code(s): E03.9 - Hypothyroidism, unspecified (10) REM sleep behavior disorder: Code(s): G47.52 - REM sleep behavior disorder Plan Patient is 73-year-old female came in today for her regular follow-up appointment Patient says that she has noticed she is having word-finding difficulty she will be having a conversation and will stop in the middle as she can find the words She would like to be evaluated by neurologist. Patient tells me that when she is sleeping she act out by moving her legs and screaming sometimes. Patient says that she has always been like that, and her mother was also like that. So she thought it is normal. Discussed with the patient that this is a REM sleep behavior disorder and we have a medication to treat that. She will discuss it further with Neurology Patient had total hip replacement right side and is doing very well chronic kidney disease stage 2.? She is on amlodipine 5 mg, patient is tolerating medication however sometimes at the end of the day she will have little bit of ankle swelling as a side effect Patient have rheumatoid arthritis, patient is aware that she is not supposed to take NSAIDs Her blood pressure is stable hydrochlorothiazide is from PCP office She is seeing decating machine operator for her ongoing problem of osteoporosis and parathyroidism.? Moods are stable patient is on Paxil.? Lipid control with atorvastatin.? Patient is also on levothyroxine for hypothyroidism.? BMI is elevated patient is having difficulty losing weight Follow-up 3 months?? Orders: Orders Complete Blood Count Auto Diff 3 Months E03.9 - Hypothyroidism, unspecified, E55.9 - Vitamin D deficiency, unspecified, E78.9 - Disorder of lipoprotein metabolism, unspecified, E87.6 - Hypokalemia, F33.42 - Major depressive disorder, recurrent, in full remission, G47.52 - REM sleep behavior disorder, I10 - Essential (primary) hypertension, K21.9 - Gastro-esophageal reflux disease without esophagitis, M81.0 - Age-related osteoporosis without current pathological fracture, R47.89 - Other speech disturbances Lipid Panel 3 Months E03.9 - Hypothyroidism, unspecified, E55.9 - Vitamin D deficiency, unspecified, E78.9 - Disorder of lipoprotein metabolism, unspecified, E87.6 - Hypokalemia, F33.42 - Major depressive disorder, recurrent, in full remission, G47.52 - REM sleep behavior disorder, I10 - Essential (primary) hypertension, K21.9 - Gastro-esophageal reflux disease without esophagitis, M81.0 - Age-related osteoporosis without current pathological fracture, R47.89 - Other speech disturbances Microalbumin, Random (w Creat) 3 Months E03.9 - Hypothyroidism, unspecified, E55.9 - Vitamin D deficiency, unspecified, E78.9 - Disorder of lipoprotein metabolism, unspecified, E87.6 - Hypokalemia, F33.42 - Major depressive disorder, recurrent, in full remission, G47.52 - REM sleep behavior disorder, I10 - Essential (primary) hypertension, K21.9 - Gastro-esophageal reflux disease without esophagitis, M81.0 - Age-related osteoporosis without current pathological fracture, R47.89 - Other speech disturbances Basic Metabolic Panel Today E87.6 - Hypokalemia Hemoglobin A1c 3 Months E03.9 - Hypothyroidism, unspecified, E55.9 - Vitamin D deficiency, unspecified, E78.9 - Disorder of lipoprotein metabolism, unspecified, E87.6 - Hypokalemia, F33.42 - Major depressive disorder, recurrent, in full remission, G47.52 - REM sleep behavior disorder, I10 - Essential (primary) hypertension, K21.9 - Gastro-esophageal reflux disease without esophagitis, M81.0 - Age-related osteoporosis without current pathological fracture, R47.89 - Other speech disturbances Comprehensive [place]. Panel Fast 3 Months E03.9 - Hypothyroidism, unspecified, E55.9 - Vitamin D deficiency, unspecified, E78.9 - Disorder of lipoprotein metabolism, unspecified, E87.6 - Hypokalemia, F33.42 - Major depressive disorder, recurrent, in full remission, G47.52 - REM sleep behavior disorder, I10 - Essential (primary) hypertension, K21.9 - Gastro-esophageal reflux disease without esophagitis, M81.0 - Age-related osteoporosis without current pathological fracture, R47.89 - Other speech disturbances TSH reflex Free T4 3 Months E03.9 - Hypothyroidism, unspecified, E55.9 - Vitamin D deficiency, unspecified, E78.9 - Disorder of lipoprotein metabolism, unspecified, E87.6 - Hypokalemia, F33.42 - Major depressive disorder, recurrent, in full remission, G47.52 - REM sleep behavior disorder, I10 - Essential (primary) hypertension, K21.9 - Gastro-esophageal reflux disease without esophagitis, M81.0 - Age-related osteoporosis without current pathological fracture, R47.89 - Other speech disturbances Referrals Neurology Referral R47.89 - Other speech disturbances Coding Level of Care Code Est Pt Level 4 (12309) Diagnoses Word finding difficulty R47.89 Low blood potassium E87.6 Recurrent major depressive disorder, in full remission F33.42 Active/Remission status: in full remission Vitamin D deficiency E55.9 Osteoporosis, unspecified osteoporosis type, unspecified pathological fracture presence M81.0 Osteoporosis type: unspecified Presence of current pathological fracture: unspecified Hypertension, essential I10 Chronic GERD K21.9 Lipid disorder E78.9 Hypothyroidism, unspecified type E03.9 Hypothyroidism type: unspecified REM sleep behavior disorder G47.52
== END 2023-11-13 15:34 | disposition home or self-care (01) ==
PROVIDERS: PCP Internal Medicine; Visit Provider Internal Medicine
DX: R47.89 Other speech disturbances (principal); E87.6 Hypokalemia; F33.42 Major depressive disorder, recurrent, in full remission; E55.9 Vitamin D deficiency, unspecified; M81.0 Age-related osteoporosis without current pathological fracture; I10 Essential (primary) hypertension; K21.9 Gastro-esophageal reflux disease without esophagitis; E78.9 Disorder of lipoprotein metabolism, unspecified; E03.9 Hypothyroidism, unspecified; G47.52 REM sleep behavior disorder
CPT/HCPCS: 99214

== ENCOUNTER 2023-11-13 14:06 | Outpatient (REF) | payer MEDICARE, SELFPAY ==
[2023-11-13 16:52] LABS: Anion Gap 13 (12-20); Blood Urea Nitrogen 14 mg/dL (9-16); Calcium 10.1 mg/dL (8.4-10.2); Carbon Dioxide 31 mmol/L (22-29); Chloride 102 mmol/L (96-108); Estimated Glomerular Filt Rate > 60; Glucose Random 131 mg/dL (60-115); Potassium 4.3 mmol/L (3.3-5.1); Sodium 142 mmol/L (135-145)
== END 2023-11-13 14:07 | disposition home or self-care (01) ==
LOC: HO.HMGCLDS 14:06
PROVIDERS: PCP Internal Medicine; Visit Provider Internal Medicine
DX: E87.6 Hypokalemia (principal)
CPT/HCPCS: 36415; 80048

== ENCOUNTER 2023-12-30 15:11 | Outpatient (REF) | payer MEDICARE, SELFPAY ==
[2023-12-30 17:10] LABS: Vitamin B12 354 pg/mL (200-900)
== END 2023-12-30 15:12 | disposition home or self-care (01) ==
LOC: HO.LAB 15:11
PROVIDERS: PCP Internal Medicine; Visit Provider Psychiatry & Neurology Neurology
DX: G31.84 Mild cognitive impairment of uncertain or unknown etiology (principal)
CPT/HCPCS: 36415; 82607

== ENCOUNTER 2024-02-10 09:01 | Outpatient (REF) | payer MEDICARE, SELFPAY ==
--- NOTE | ~2024-02-10 | MR_ITS ---
EXAMINATION: MR BRAIN WITHOUT CONTRAST CLINICAL INFORMATION: Brain fog, fatigue, cognitive impairment COMPARISON: None available. TECHNIQUE: MRI of the brain was obtained using routine sequences without contrast. FINDINGS: There is no reduced diffusion to suggest acute infarct. Susceptibility weighted sequence is within normal limits. No mass effect, extra-axial collection, midline shift, or other herniation. Mild generalized cerebral volume loss with associated ventricular and sulcal prominence. Periventricular, subcortical, and pontine T2/FLAIR hyperintense foci are nonspecific but likely represent chronic microvascular ischemic change. There is mild asymmetric volume loss in the right hippocampus. Intracranial flow voids are preserved. Bilateral intraocular lens replacements. The paranasal sinuses and mastoid air cells are essentially clear. No focal expansile or destructive osseous lesion. MR/MR head/brain wo con IMPRESSION: Mild generalized cerebral volume loss with prominence of the right temporal horn suggesting mild asymmetric volume loss in the right hippocampus. Mild to moderate chronic microvascular ischemic change.
== END 2024-02-10 09:02 | disposition home or self-care (01) ==
LOC: HO.MRI 09:01
PROVIDERS: PCP Internal Medicine; Visit Provider Psychiatry & Neurology Neurology
DX: G31.84 Mild cognitive impairment of uncertain or unknown etiology (principal)
CPT/HCPCS: 70551

== ENCOUNTER 2024-02-11 10:54 | Outpatient (AMB) | payer MEDICARE, SELFPAY ==
--- NOTE | 2024-02-11 11:02 | A.OFFPC_ITS ---
Vital Signs 02/11/24 11:03 Height 4 ft 11 in Weight 180 lb BMI 36.4 BP 122/74 Blood Pressure Location Lt brachial Position Sitting Pulse 96 Pulse Source Pulse Oximeter Pulse Oximetry (%) 96 Oxygen Delivery Method Room Air Intake Visit Reasons: 3month f/u Allergies tetanus toxoid, adsorbed [Tetanus Toxoid,Adsorbed] Allergy (Severe, Verified 02/11/24 11:02) SEVERE SWELLING amoxicillin [Augmentin] Allergy (Unknown, Verified 02/11/24 11:02) Unknown clavulanic acid [Augmentin] Allergy (Unknown, Verified 02/11/24 11:02) Unknown Tetanus Allergy (Unknown, Uncoded 02/11/24 11:02) swelling Tetanus Immune Globulin Allergy (Unknown, Uncoded 02/11/24 11:02) Unknown From Augmentin Adverse Reaction (Severe, Uncoded 02/11/24 11:02) SEVERE N/V Medication List - Last Reconciled 02/11/24 by Princess Fairchild MD aspirin 81 mg PO DAILY atenolol 25 mg PO DAILY atorvastatin 40 mg PO DAILY 90 days calcium citrate-vitamin D3 315 mg-5 mcg (200 unit) 1 tab PO BID 30 days hydrochlorothiazide 25 mg PO QAM 90 days latanoprost 0.005% 1 drp ophthalmic (eye) QPM levothyroxine 88 mcg PO DAILY 90 days paroxetine HCl 40 mg PO QAM 90 days timolol maleate 0.5% drps ophthalmic (eye) DAILY Tobacco use date assessed: 02/11/24 Fall risk assessment: No Falls in past year Last assessed Fall Risk: 02/11/24 Dental Screening Dental Screen Date: 11/13/23 HPI 3month f/u HPI Details Patient is a 73-year-old female came in today for her regular follow-up appointment chronic kidney disease stage 2.? Last visit in December, note reviewed Her amlodipine was stopped and atenolol 25 mg was added as she was having swelling of her ankles Her blood pressure is stable hydrochlorothiazide is from PCP office She is seeing hairspring vibrator for her ongoing problem of osteoporosis and parathyroidism.? Moods are stable patient is on Paxil.? Lipid control with atorvastatin.? Patient is also on levothyroxine for hypothyroidism.? BMI is elevated patient is having difficulty losing weight History of right hip replacement Labs are needed before next visit in 3 months Follow-up 3 months?? [facility] Medical History Vitamin D deficiency Osteoporosis Brittle nails Bilateral ankle pain Urinary incontinence, mixed Asthma Hypertension, essential Depression Chronic GERD Lipid disorder Hypothyroid Surgical History History of hip surgery History of surgery on right wrist Hx of tubal ligation Hx of cataract removal with insertion of prosthetic lens History of arthroscopy of left shoulder Hx of repair of right rotator cuff H/O knee surgery Family History Father No problems noted. Mother No problems noted. Social History Housing: House Alcohol intake: current Alcohol intake frequency: a few times a month Patient Tobacco Use Status: Never used Tobacco e-Cigarette/Vaping Use: Never Used Second Hand Smoke Exposure: No service: No Current occupational status: retired Cognitive needs: No Hearing needs: No Vision needs: Yes Questionnaire PHQ-9 Over the last 2 weeks, how often have you been bothered by any of the following problems? 1. Little interest or pleasure in doing things: several days 2. Feeling down, depressed, or hopeless: several days 3. Trouble falling or staying asleep, or sleeping too much: more than half the days 4. Feeling tired or having little energy: more than half the days 5. Poor appetite or overeating: not at all 6. Feeling bad about yourself - or that you are a failure or have let yourself or your family down: not at all 7. Trouble concentrating on things, such as reading the newspaper or watching television: not at all 8. Moving or speaking so slowly that other people could have noticed. Or the opposite - being so fidgety or restless that you have been moving around a lot more than usual: not at all 9. Thoughts that you would be better off or of hurting yourself in some way: not at all Total score: 6 Depression Screening Interpretation: Negative Depression Screening Done: Yes 86166 - PHQ-9 Billing: Yes Source: Developed by Drs. Parag Overton, Rabia Clarke, Kennedy Casey and colleagues, with an educational trinidad from [employer]. Thrive Questionnaire Date Thrive assessed: 02/11/24 I am a: Patient What is your living situation today?: I have a steady place to live Within the past 12 months, did the food you bought not last and you didn't have the money to get more?: Never true Within the past 12 months, did you worry whether your food would run out before you got money to buy more?: Never true Do you have trouble paying for medicines?: No Do you have trouble getting transportation to medical appointments?: No Do you have trouble paying your heating and electricity bill?: No Do you have trouble taking care of your child, family member or friend?: No Do you have trouble with day-to-day activities such as bathing, preparing meals, shopping, managing finances, etc.?: No Are you currently unemployed and looking for a job?: No Are you interested in more education?: No Please select the resources that you would like help with: Housing/Skilled Nursing Currently or been in a relationship where the following occur: No concerns reported THRIVE Score: 0 AUDIT C Alcohol Use Questionnaire (AUDIT-C) 1. How often do you have a drink containing alcohol?: Monthly or less 2. How many drinks containing alcohol do you have on a typical day when you are drinking?: 1 or 2 3. How often do you have six or more drinks on one occasion?: Never Total Score: 1 Score Reviewed/Action Taken: Yes JILLIAN-7 AMB Questionnaire JILLIAN-7 Date JILLIAN - 7 assessed: 02/11/24 Feeling nervous, anxious, or on edge: 0 = Not at all Not being able to stop or control worryin = Not at all Worrying too much about different things: 0 = Not at all Trouble relaxin = Not at all Being so restless that it is hard to sit still: 0 = Not at all Becoming easily annoyed or irritable: 0 = Not at all Feeling afraid as if something awful might happen: 0 = Not at all Total JILLIAN-7 score (0-4 normal; 5-9 mild; 10-14 moderate; 15-21 severe): 0 Source: Developed by Drs. Parag Overton, Rabia Clarke, Kennedy Casey and colleagues, with an educational trinidad from [employer]. JILLIAN-7 Assessment Billing JILLIAN-7 Assessment Tool: JILLIAN-7 Assessment 86500 Review of Systems Const Denies chills and Denies fever(s) ENT Denies epistaxis and Denies nasal discharge Card Denies chest pain Resp Denies chest congestion, Denies cough and Denies hemoptysis GI Denies diarrhea and Denies nausea Skin/Breast Denies rash Neuro Reports no additional complaints Psych Reports no additional complaints Endo Reports no additional complaints Physical exam (Primary Care) Vital Signs: Last Vital Signs Pulse 96 02/11/24 11:03 BP 122/74 02/11/24 11:03 Pulse Ox 96 02/11/24 11:03 Oxygen Delivery Method Room Air 02/11/24 11:03 BMI result Body Mass Index 36.4 Tobacco/Smoking Status: Tobacco use Status Tobacco use date assessed 02/11/24 02/11/24 11:08 Patient Tobacco Use Status Never used Tobacco 02/11/24 11:08 e-Cigarette/Vaping Use Never Used 02/11/24 11:08 PHQ-9: PHQ-9 Score PHQ-9: Total score 6 02/11/24 11:25 Depression Screening Interpretation: Negative Thrive Assessment: Date of Thrive Assessment Date Thrive assessed 02/11/24 02/11/24 11:08 Currently or been in a relationship where the following occur: No concerns reported Const General: cooperative, comfortable and no acute distress Orientation/consciousness: patient oriented x3 HENMT Head: Yes normocephalic Eyes General: appearance normal, both eyes and all related structures Neck Neck: Yes supple Resp Effort & Inspection: normal respiratory effort, no cough and no stridor Cardio Rhythm: regular rhythm Heart sounds: S1 normal heart sound present and S2 normal heart sound present Skin General skin exam: turgor normal Neuro General: patient oriented x3, tone normal and moves all extremities Extrem Right lower extremity: no edema Left lower extremity: no edema Assessment and Plan Assessment & Plan (1) Hypertension, essential: Code(s): I10 - Essential (primary) hypertension (2) Major depression, recurrent: Code(s): F33.9 - Major depressive disorder, recurrent, unspecified Qualifiers: Active/Remission status: in full remission Qualified Code(s): F33.42 - Major depressive disorder, recurrent, in full remission (3) Lipid disorder: Code(s): E78.9 - Disorder of lipoprotein metabolism, unspecified (4) Impaired fasting blood sugar: Code(s): R73.01 - Impaired fasting glucose (5) Nephropathy: Code(s): N28.9 - Disorder of kidney and ureter, unspecified (6) Urinary incontinence, mixed: Code(s): N39.46 - Mixed incontinence (7) Osteoporosis: Code(s): M81.0 - Age-related osteoporosis without current pathological fracture Qualifiers: Osteoporosis type: unspecified Presence of current pathological fracture: unspecified Qualified Code(s): M81.0 - Age-related osteoporosis without current pathological fracture (8) Vitamin D deficiency: Code(s): E55.9 - Vitamin D deficiency, unspecified (9) Obesity (BMI 30.0-34.9): Code(s): E66.9 - Obesity, unspecified (10) Word finding difficulty: Code(s): R47.89 - Other speech disturbances Plan Patient is a 73-year-old female came in today for her regular follow-up appointment chronic kidney disease stage 2.? Last visit in December, note reviewed Her amlodipine was stopped and atenolol 25 mg was added as she was having swe lling of her ankles Her blood pressure is stable hydrochlorothiazide is from PCP office She is seeing hairspring vibrator for her ongoing problem of osteoporosis and parathyroidism.? Moods are stable patient is on Paxil.? Lipid control with atorvastatin.? Patient is also on levothyroxine for hypothyroidism.? BMI is elevated patient is having difficulty losing weight History of right hip replacement Labs are needed before next visit in 3 months Impaired fasting sugar, need to lose weight and control diet Patient has had MRI of brain by Neurology when she was evaluated for word- finding difficulty. Follow-up 3 months?? Orders: Orders Comprehensive Met. Panel 3 Months E55.9 - Vitamin D deficiency, unspecified, E66.9 - Obesity, unspecified, E78.9 - Disorder of lipoprotein metabolism, unspecified, F33.42 - Major depressive disorder, recurrent, in full remission, I10 - Essential (primary) hypertension, M81.0 - Age-related osteoporosis without current pathological fracture, N28.9 - Disorder of kidney and ureter, unspecified, N39.46 - Mixed incontinence, R47.89 - Other speech disturbances, R73.01 - Impaired fasting glucose TSH reflex Free T4 3 Months E55.9 - Vitamin D deficiency, unspecified, E66.9 - Obesity, unspecified, E78.9 - Disorder of lipoprotein metabolism, unspecified, F33.42 - Major depressive disorder, recurrent, in full remission, I10 - Essential (primary) hypertension, M81.0 - Age-related osteoporosis without curre nt pathological fracture, N28.9 - Disorder of kidney and ureter, unspecified, N39.46 - Mixed incontinence, R47.89 - Other speech disturbances, R73.01 - Impaired fasting glucose Complete Blood Count Auto Diff 3 Months E55.9 - Vitamin D deficiency, unspecified, E66.9 - Obesity, unspecified, E78.9 - Disorder of lipoprotein metabolism, unspecified, F33.42 - Major depressive disorder, recurrent, in full remission, I10 - Essential (primary) hypertension, M81.0 - Age-related osteoporosis without current pathological fracture, N28.9 - Disorder of kidney and ureter, unspecified, N39.46 - Mixed incontinence, R47.89 - Other speech disturbances, R73.01 - Impaired fasting glucose Lipid Panel 3 Months E55.9 - Vitamin D deficiency, unspecified, E66.9 - Obesity, unspecified, E78.9 - Disorder of lipoprotein metabolism, unspecified, F33.42 - Major depressive disorder, recurrent, in full remission, I10 - Essential (primary) hypertension, M81.0 - Age-related osteoporosis without current pathological fracture, N28.9 - Disorder of kidney and ureter, unspecified, N39.46 - Mixed incontinence, R47.89 - Other speech disturbances, R73.01 - Impaired fasting glucose Vitamin D 25-OH (D2 and D3) 3 Months E55.9 - Vitamin D deficiency, unspecified, E66.9 - Obesity, unspecified, E78.9 - Disorder of lipoprotein metabolism, unspecified, F33.42 - Major depressive disorder, recurrent, in full remission, I10 - Essential (primary) hypertension, M81.0 - Age-related osteoporosis without current pathological fracture, N28.9 - Disorder of kidney and ureter, unspecified, N39.46 - Mixed incontinence, R47.89 - Other speech disturbances, R73.01 - Impaired fasting glucose Vitamin B12 3 Months E55.9 - Vitamin D deficiency, unspecified, E66.9 - Obesity, unspecified, E78.9 - Disorder of lipoprotein metabolism, unspecified, F33.42 - Major depressive disorder, recurrent, in full remission, I10 - Essential (primary) hypertension, M81.0 - Age-related osteoporosis without current pathological fracture, N28.9 - Disorder of kidney and ureter, unspecified, N39.46 - Mixed incontinence, R47.89 - Other speech disturbances, R73.01 - Impaired fasting glucose Coding Level of Care Code Est Pt Level 4 (50978) Complex EM visit Add On G2211 Diagnoses Hypertension, essential I10 Recurrent major depressive disorder, in full remission F33.42 Active/Remission status: in full remission Lipid disorder E78.9 Impaired fasting blood sugar R73.01 Nephropathy N28.9 Urinary incontinence, mixed N39.46 Osteoporosis, unspecified osteoporosis type, unspecified pathological fracture presence M81.0 Osteoporosis type: unspecified Presence of current pathological fracture: unspecified Vitamin D deficiency E55.9 Obesity (BMI 30.0-34.9) E66.9 Word finding difficulty R47.89 Additional Codes JILLIAN-7 Assessment Billing - JILLIAN-7 Assessment Tool: JILLIAN-7 Assessment 40879 ([id number])
[2024-02-11 11:03] VITALS: BP 122/74; PULSE 96; O2SAT 96; BMI 36.4
== END 2024-02-11 11:30 | disposition home or self-care (01) ==
PROVIDERS: PCP Internal Medicine; Visit Provider Internal Medicine
DX: I10 Essential (primary) hypertension (principal); F33.42 Major depressive disorder, recurrent, in full remission; E66.9 Obesity, unspecified; Z68.36 Body mass index [BMI] 36.0-36.9, adult; E78.9 Disorder of lipoprotein metabolism, unspecified; R73.01 Impaired fasting glucose; N28.9 Disorder of kidney and ureter, unspecified; N39.46 Mixed incontinence; M81.0 Age-related osteoporosis without current pathological fracture; E55.9 Vitamin D deficiency, unspecified; R47.89 Other speech disturbances
CPT/HCPCS: 99214; G2211

== ENCOUNTER 2024-03-13 09:12 | Outpatient (REF) | payer MEDICARE, SELFPAY ==
[2024-03-20 16:38] LABS: N-Telopeptide 34 (see note); NTXCreaRU 137 mg/dL (20-275)
== END 2024-03-13 09:13 | disposition home or self-care (01) ==
LOC: HO.HMGCLDS 09:12
PROVIDERS: PCP Internal Medicine; Visit Provider Internal Medicine Endocrinology, Diabetes & Metabolism
DX: M81.0 Age-related osteoporosis without current pathological fracture (principal)
CPT/HCPCS: 82523

== ENCOUNTER 2024-03-23 10:27 | Outpatient (AMB) | payer MEDICARE, SELFPAY ==
--- NOTE | 2024-03-23 10:29 | MHC.OFFVIS ---
Vital Signs 03/23/24 10:32 Height 4 ft 11.57 in Weight 186 lb 11.704 oz BMI 37.0 BP 116/60 Blood Pressure Location Rt brachial Position Sitting Pulse 70 Pulse Source Pulse Oximeter Intake Visit Reasons: Osteoporosis-lvm Intake Note: Patient present today for Osteoporosis follow up visit. 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: No Accompanied by: Self / Same As Patient Allergies tetanus toxoid, adsorbed [Tetanus Toxoid,Adsorbed] Allergy (Severe, Verified 03/23/24 10:33) SEVERE SWELLING amoxicillin [Augmentin] Allergy (Unknown, Verified 03/23/24 10:33) Unknown clavulanic acid [Augmentin] Allergy (Unknown, Verified 03/23/24 10:33) Unknown Tetanus Allergy (Unknown, Uncoded 03/23/24 10:33) swelling Tetanus Immune Globulin Allergy (Unknown, Uncoded 03/23/24 10:33) Unknown From Augmentin Adverse Reaction (Severe, Uncoded 03/23/24 10:33) SEVERE N/V HPI Comments Details: 73 YO Female with PMHx Osteoporosis, Hypothyroidism, HTN, HLD who is seen in F/U for Osteoporosis. Was first diagnosed with Osteoporosis in 2017 when her DXA revealed progression from Osteopenia. Was diagnosed with Osteopenia approximately 10 years ago. She is currently being treated with Prolia and has had 5 doses (last 04/05/2022). Has tolerated Prolia well. She underwent a total hip replacement 09/14/2022, and Prolia was delayed due to awaiting integration of hardware. She reports hardware has integrated well. She has never had a broken bone. Has lost 1 inch in height. Is using Calcium Carbonate 600 mg PO BID. She sometimes forgets her second dose of the day. Has 1 serving of dairy daily in the form of cheese. Is taking Vitamin D 2000 IU daily. Has never used any anticoagulant medication or oral glucocorticoids but did have steroid knee and shoulder injections. Denies any antiepileptic use. Does use omeprazole daily for her severe GERD. , did not breastfeed. Menopause at the age 59. Never used HRT. Has dental cleanings q 6 months. Had a dental extraction in early June 2020. Does not exercise. Had bilateral knee replacements January 2020. Does not do resistance training. Mother with severe Osteoporosis was treated with Fosamax and had Osteonecrosis of the jaw. Denies any history of kidney stones. Denies family history of kidney stones. DXA: 03/21/2020 FINDINGS: AP SPINE L1-L4: BMD 1.170 g/cm2, Z-score 1.0, T-score -0.1, normal. LEFT FEMUR, NECK: BMD 0.681 g/cm2, Z-score -1.3, T-score -2.6, osteoporosis. LEFT FEMUR, TOTAL: BMD 0.840 g/cm2, Z-score -0.4, T-score -1.3, osteopenia. Labs: Laboratory Tests 10/02/22 12/04/22 08:54 08:54 Sodium 142 Potassium 4.7 Creatinine 0.98 Estimated GFR 56 Calcium 10.0 Albumin 4.4 TSH 0.52 status post a course of Prolia with a Reclast infusion and continued NTX suppression PFSH Medical History Vitamin D deficiency Osteoporosis Brittle nails Bilateral ankle pain Urinary incontinence, mixed Asthma Hypertension, essential Depression Chronic GERD Lipid disorder Hypothyroid Surgical History History of hip surgery History of surgery on right wrist Hx of tubal ligation Hx of cataract removal with insertion of prosthetic lens History of arthroscopy of left shoulder Hx of repair of right rotator cuff H/O knee surgery Family History Father No problems noted. Mother No problems noted. Social History Housing: House Alcohol intake: current Alcohol intake frequency: a few times a month Patient Tobacco Use Status: Never used Tobacco e-Cigarette/Vaping Use: Never Used Second Hand Smoke Exposure: No service: No Current occupational status: retired Cognitive needs: No Hearing needs: No Vision needs: Yes Physical Exam Vital Signs: BMI result Body Mass Index 37.0 Assessment & Plan Assessment & Plan (1) Osteoporosis: Code(s): M81.0 - Age-related osteoporosis without current pathological fracture Category: Medical Qualifiers: Osteoporosis type: unspecified Presence of current pathological fracture: unspecified Qualified Code(s): M81.0 - Age-related osteoporosis without current pathological fracture Plan: This 73-year-old white female with history of osteoporosis a negative secondary workup. She completed a course of Prolia and received a Reclast infusion . NTX is suppressed Plan is to should continue with calcium and vitamin-D supplementation. We will recheck NTX about 6-7 months for Orders: Orders Collagen Crosslinks NTX 6 Months M81.0 - Age-related osteoporosis without current pathological fracture Coding Level of Care Code Est Pt Level 3 (91661) Diagnoses Osteoporosis, unspecified osteoporosis type, unspecified pathological fracture presence M81.0 Osteoporosis type: unspecified Presence of current pathological fracture: unspecified
[2024-03-23 10:32] VITALS: BP 116/60; PULSE 70; BMI 37.0
== END 2024-03-23 10:46 | disposition home or self-care (01) ==
PROVIDERS: PCP Internal Medicine; Visit Provider Internal Medicine Endocrinology, Diabetes & Metabolism
DX: M81.0 Age-related osteoporosis without current pathological fracture (principal)
CPT/HCPCS: 99213

== ENCOUNTER → 2024-03-23 10:27 | Outpatient (BNVA) | payer MEDICARE, SELFPAY | PROVIDERS: PCP Internal Medicine; Visit Provider Internal Medicine Endocrinology, Diabetes & Metabolism | DX: M81.0 Age-related osteoporosis without current pathological fracture (principal); E55.9 Vitamin D deficiency, unspecified; Z79.620 Long term (current) use of immunosuppressive biologic | CPT/HCPCS: 99212 ==

== ENCOUNTER 2024-04-29 10:02 | Outpatient (REF) | payer MEDICARE, SELFPAY ==
[2024-04-29 13:39] LABS: MANUAL DIFF FLAG NO
[2024-04-29 13:58] LABS: Basophils Absolute Auto 0.1 X10*3/uL (0.0-0.2); Basophils Percent Auto 0.9 % (0-2); Eosinophils Absolute Auto 0.2 X10*3/uL (0.0-0.4); Eosinophils Percent Auto 3.6 % (0-4); Hematocrit 39.2 % (37.0-47.0); Hemoglobin 12.4 g/dl (12.0-16.0); Imm Gran Abs Auto 0.04 X10*3/uL (0.00-0.03); Imm Gran Pct Auto 0.6 % (0.0-0.4); Lymphocytes Absolute Auto 1.5 X10*3/uL (1.2-4.9); Lymphocytes Percent Auto 23.7 % (20-40); Mean Corpuscular HGB Conc 31.6 g/dl (31.0-35.0); Mean Corpuscular Hemoglobin 26.2 pg (27.0-33.0); Mean Corpuscular Volume 82.9 fL (80.0-98.0); Mean Platelet Volume 10.3 fL (9.4-12.3); Monocytes Absolute Auto 0.3 X10*3/uL (0.1-1.2); Monocytes Percent Auto 4.7 % (2-11); Neutrophils Absolute Auto 4.2 x10*3/uL (2.0-8.3); Neutrophils Percent Auto 66.5 % (45-73); Platelet Count 349 X10*3/uL (160-400); Red Blood Count 4.73 X10*6/uL (4.20-5.50); White Blood Count 6.3 X10*3/uL (4.8-10.8)
[2024-04-29 14:08] LABS: Alanine Aminotransferase 41 U/L (0-31); Albumin Level 4.1 g/dL (3.5-5.0); Alkaline Phosphatase 92 U/L (39-117); Anion Gap 16 (12-20); Aspartate Amino Transferase 45 U/L (5-31); Bilirubin Total 0.5 mg/dL (0.0-1.0); Blood Urea Nitrogen 15 mg/dL (9-16); Calcium 9.7 mg/dL (8.4-10.2); Carbon Dioxide 27 mmol/L (22-29); Chloride 104 mmol/L (96-108); Estimated Glomerular Filt Rate 59; Glucose Random 237 mg/dL (60-115); Potassium 3.8 mmol/L (3.3-5.1); Sodium 143 mmol/L (135-145); Total Protein 7.6 g/dL (6.5-8.0)
[2024-04-29 14:30] LABS: TSH reflex Free T4 0.89 uIU/mL (0.32-4.0)
[2024-04-29 14:31] LABS: Vitamin B12 349 pg/mL (200-900)
[2024-05-05 14:24] LABS: Vitamin D 25-OH, D2 4 ng/mL; Vitamin D 25-OH, D3 28 ng/mL; Vitamin D 25-OH, Total 32 ng/mL (30-100)
== END 2024-04-29 10:03 | disposition home or self-care (01) ==
LOC: HO.HMGCLDS 10:02
PROVIDERS: PCP Internal Medicine; Visit Provider Internal Medicine
DX: I10 Essential (primary) hypertension (principal); E03.9 Hypothyroidism, unspecified; E78.9 Disorder of lipoprotein metabolism, unspecified; K21.9 Gastro-esophageal reflux disease without esophagitis; M81.0 Age-related osteoporosis without current pathological fracture; F33.42 Major depressive disorder, recurrent, in full remission; R73.01 Impaired fasting glucose; N39.46 Mixed incontinence; E55.9 Vitamin D deficiency, unspecified; E66.9 Obesity, unspecified; N28.9 Disorder of kidney and ureter, unspecified; R47.89 Other speech disturbances; Z79.899 Other long term (current) drug therapy
CPT/HCPCS: 36415; 80053; 82306; 82607; 84443; 85025; 96127; 99212

== ENCOUNTER 2024-04-29 10:02 | Outpatient (AMB) | payer MEDICARE, SELFPAY ==
[2024-04-29 10:04] VITALS: BP 120/64; PULSE 62; O2SAT 95; BMI 37.2
--- NOTE | 2024-04-29 10:04 | A.OFFPC_ITS ---
Vital Signs 04/29/24 10:04 Height 4 ft 11 in Weight 184 lb 2 oz BMI 37.2 BP 120/64 Blood Pressure Location Rt brachial Position Sitting Pulse 62 Pulse Source Pulse Oximeter Pulse Oximetry (%) 95 Oxygen Delivery Method Room Air Intake Visit Reasons: 3month f/u Allergies tetanus toxoid, adsorbed [Tetanus Toxoid,Adsorbed] Allergy (Severe, Verified 04/29/24 10:04) SEVERE SWELLING amoxicillin [Augmentin] Allergy (Unknown, Verified 04/29/24 10:04) Unknown clavulanic acid [Augmentin] Allergy (Unknown, Verified 04/29/24 10:04) Unknown Tetanus Allergy (Unknown, Uncoded 03/23/24 10:33) swelling Tetanus Immune Globulin Allergy (Unknown, Uncoded 03/23/24 10:33) Unknown From Augmentin Adverse Reaction (Severe, Uncoded 03/23/24 10:33) SEVERE N/V Medication List - Last Reconciled 04/29/24 by Princess Fairchild MD aspirin 81 mg PO DAILY atenolol 25 mg PO DAILY atorvastatin 40 mg PO DAILY 90 days calcium citrate-vitamin D3 315 mg-5 mcg (200 unit) 1 tab PO BID 30 days hydrochlorothiazide 25 mg PO QAM 90 days latanoprost 0.005% 1 drp ophthalmic (eye) QPM levothyroxine 88 mcg PO DAILY 90 days paroxetine HCl 40 mg PO QAM 90 days timolol maleate 0.5% drps ophthalmic (eye) DAILY Tobacco use date assessed: 04/29/24 Fall risk assessment: No Falls in past year Last assessed Fall Risk: 04/29/24 Dental Screening Dental Screen Date: 04/29/24 Did you have a dental visit in the last 12 months?: Yes Did you have a dental problem in the last 6 months where you did not have access to dental care?: No Was dental information given to patient?: Patient has dentist HPI 3month f/u HPI Details Patient is a 73-year-old female in for regular follow-up appointment Labs are due, reminded patient again Patient was having some memory issues and seen a neurologist Patient had MRI brain done Report reviewed with her which shows Mild volume loss and mild ischemic changes Findings explained to patient as she was having some questions on the report She could not understand Neurology explanation Osteoporosis: Patient was on Prolia and took it for 2 and half years And then she was taken off by endocrinology Last bone density was done in November of 2022 which showed level of -2.5 Hypertension: Blood pressure is well-controlled, patient is on atenolol 25 mg and hydrochlorothiazide 25 mg Hydrochlorothiazide is helping her ankle swelling as well Anxiety and depression stable with paroxetine Continue levothyroxine 88 mcg for hypothyroidism BMI is elevated patient need to lose weight, she is trying. Follow-up July Medical History Vitamin D deficiency Osteoporosis Brittle nails Bilateral ankle pain Urinary incontinence, mixed Asthma Hypertension, essential Depression Chronic GERD Lipid disorder Hypothyroid Surgical History History of hip surgery History of surgery on right wrist Hx of tubal ligation Hx of cataract removal with insertion of prosthetic lens History of arthroscopy of left shoulder Hx of repair of right rotator cuff H/O knee surgery Family History Father No problems noted. Mother No problems noted. Social History Housing: House Alcohol intake: current Alcohol intake frequency: a few times a month Patient Tobacco Use Status: Never used Tobacco e-Cigarette/Vaping Use: Never Used Second Hand Smoke Exposure: No service: No Current occupational status: retired Cognitive needs: No Hearing needs: No Vision needs: Yes Questionnaire Thrive Questionnaire Date Thrive assessed: 04/29/24 I am a: Patient What is your living situation today?: I have a steady place to live Within the past 12 months, did the food you bought not last and you didn't have the money to get more?: Never true Within the past 12 months, did you worry whether your food would run out before you got money to buy more?: Never true Do you have trouble paying for medicines?: No Do you have trouble getting transportation to medical appointments?: No Do you have trouble paying your heating and electricity bill?: No Do you have trouble taking care of your child, family member or friend?: No Do you have trouble with day-to-day activities such as bathing, preparing meals, shopping, managing finances, etc.?: No Are you currently unemployed and looking for a job?: No Are you interested in more education?: No Please select the resources that you would like help with: None Currently or been in a relationship where the following occur: No concerns reported THRIVE Score: 0 AUDIT C Alcohol Use Questionnaire (AUDIT-C) 1. How often do you have a drink containing alcohol?: Monthly or less 2. How many drinks containing alcohol do you have on a typical day when you are drinking?: 1 or 2 3. How often do you have six or more drinks on one occasion?: Never Total Score: 1 Score Reviewed/Action Taken: Yes JILLIAN-7 AMB Questionnaire JILLIAN-7 Date JILLIAN - 7 assessed: 04/29/24 Feeling nervous, anxious, or on edge: 0 = Not at all Not being able to stop or control worryin = Not at all Worrying too much about different things: 0 = Not at all Trouble relaxin = Not at all Being so restless that it is hard to sit still: 0 = Not at all Becoming easily annoyed or irritable: 0 = Not at all Feeling afraid as if something awful might happen: 0 = Not at all Total JILLIAN-7 score (0-4 normal; 5-9 mild; 10-14 moderate; 15-21 severe): 0 Source: Developed by Drs. Parag Overton, Rabia Clarke, Kennedy Casey and colleagues, with an educational trinidad from [employer]. JILLIAN-7 Assessment Billing JILLIAN-7 Assessment Tool: JILLIAN-7 Assessment 69229 Review of Systems Const Denies chills and Denies fever(s) ENT Denies epistaxis and Denies nasal discharge Card Denies chest pain Resp Denies chest congestion, Denies cough and Denies hemoptysis GI Denies diarrhea and Denies nausea Skin/Breast Denies rash Neuro Reports no additional complaints Psych Reports no additional complaints Endo Reports no additional complaints Physical exam (Primary Care) Vital Signs: Last Vital Signs Pulse 62 04/29/24 10:04 BP 120/64 04/29/24 10:04 Pulse Ox 95 04/29/24 10:04 Oxygen Delivery Method Room Air 04/29/24 10:04 BMI result Body Mass Index 37.2 Tobacco/Smoking Status: Tobacco use Status Tobacco use date assessed 04/29/24 04/29/24 10:05 Patient Tobacco Use Status Never used Tobacco 04/29/24 10:05 e-Cigarette/Vaping Use Never Used 04/29/24 10:05 Thrive Assessment: Date of Thrive Assessment Date Thrive assessed 04/29/24 04/29/24 10:16 Currently or been in a relationship where the following occur: No concerns reported Const General: cooperative, comfortable and no acute distress Orientation/consciousness: patient oriented x3 HENMT Head: Yes normocephalic Eyes General: appearance normal, both eyes and all related structures Neck Neck: Yes supple Resp Effort & Inspection: normal respiratory effort, no cough and no stridor Cardio Rhythm: regular rhythm Heart sounds: S1 normal heart sound present and S2 normal heart sound present Skin General skin exam: turgor normal Neuro General: patient oriented x3, tone normal and moves all extremities Extrem Right lower extremity: no edema Left lower extremity: no edema Coding Level of Care Code Est Pt Level 4 (38967) Complex EM visit Add On G2211 Diagnoses Hypertension, essential I10 Hypothyroidism, unspecified type E03.9 Hypothyroidism type: unspecified Lipid disorder E78.9 Chronic GERD K21.9 Osteoporosis, unspecified osteoporosis type, unspecified pathological fracture presence M81.0 Osteoporosis type: unspecified Presence of current pathological fracture: unspecified Recurrent major depressive disorder, in full remission F33.42 Active/Remission status: in full remission Impaired fasting blood sugar R73.01 Additional Codes JILLIAN-7 Assessment Billing - JILLIAN-7 Assessment Tool: JILLIAN-7 Assessment 14147 ([id number]) Assessment & Plan Assessment & Plan (1) Hypertension, essential: Code(s): I10 - Essential (primary) hypertension Category: Medical (2) Hypothyroid: Code(s): E03.9 - Hypothyroidism, unspecified Category: Medical Qualifiers: Hypothyroidism type: unspecified Qualified Code(s): E03.9 - Hypothyroidism, unspecified (3) Lipid disorder: Code(s): E78.9 - Disorder of lipoprotein metabolism, unspecified Category: Medical (4) Chronic GERD: Code(s): K21.9 - Gastro-esophageal reflux disease without esophagitis Category: Medical (5) Osteoporosis: Code(s): M81.0 - Age-related osteoporosis without current pathological fracture Category: Medical Qualifiers: Osteoporosis type: unspecified Presence of current pathological fracture: unspecified Qualified Code(s): M81.0 - Age-related osteoporosis without current pathological fracture (6) Major depression, recurrent: Code(s): F33.9 - Major depressive disorder, recurrent, unspecified Category: Medical Qualifiers: Active/Remission status: in full remission Qualified Code(s): F33.42 - Major depressive disorder, recurrent, in full remission (7) Impaired fasting blood sugar: Code(s): R73.01 - Impaired fasting glucose Category: Medical Plan Patient is a 73-year-old female in for regular follow-up appointment Labs are due, reminded patient again Patient was having some memory issues and seen a neurologist Patient had MRI brain done Report reviewed with her which shows Mild volume loss and mild ischemic changes Findings explained to patient as she was having some questions on the report She could not understand Neurology explanation Osteoporosis: Patient was on Prolia and took it for 2 and half years And then she was taken off by endocrinology Last bone density was done in November of 2022 which showed level of -2.5 Hypertension: Blood pressure is well-controlled, patient is on atenolol 25 mg and hydrochlorothiazide 25 mg Hydrochlorothiazide is helping her ankle swelling as well Anxiety and depression stable with paroxetine Continue levothyroxine 88 mcg for hypothyroidism BMI is elevated patient need to lose weight, she is trying. Follow-up July
== END 2024-04-29 10:34 | disposition home or self-care (01) ==
PROVIDERS: PCP Internal Medicine; Visit Provider Internal Medicine
DX: I10 Essential (primary) hypertension (principal); F33.42 Major depressive disorder, recurrent, in full remission; E03.9 Hypothyroidism, unspecified; E78.9 Disorder of lipoprotein metabolism, unspecified; K21.9 Gastro-esophageal reflux disease without esophagitis; M81.0 Age-related osteoporosis without current pathological fracture; R73.01 Impaired fasting glucose

== ENCOUNTER 2024-08-28 11:23 | Outpatient (AMB) | payer MEDICARE, SELFPAY ==
[2024-08-28 11:30] VITALS: BP 142/70; PULSE 76; O2SAT 96; BMI 36.6
--- NOTE | 2024-08-28 11:30 | AM.OFFVISMDC ---
Intake Vital Signs 08/28/24 11:30 Height 4 ft 11 in Weight 181 lb 2 oz BMI 36.6 BP 142/70 H Blood Pressure Location Lt brachial Position Sitting Pulse 76 Pulse Source Pulse Oximeter Pulse Oximetry (%) 96 Oxygen Delivery Method Room Air Intake Visit Reasons: SWV G0439 Allergies tetanus toxoid, adsorbed [Tetanus Toxoid,Adsorbed] Allergy (Severe, Verified 08/28/24 11:36) SEVERE SWELLING amoxicillin [Augmentin] Allergy (Unknown, Verified 08/28/24 11:36) Unknown clavulanic acid [Augmentin] Allergy (Unknown, Verified 08/28/24 11:36) Unknown Tetanus Allergy (Unknown, Uncoded 03/23/24 10:33) swelling Tetanus Immune Globulin Allergy (Unknown, Uncoded 03/23/24 10:33) Unknown From Augmentin Adverse Reaction (Severe, Uncoded 03/23/24 10:33) SEVERE N/V Medication List - Last Reconciled 08/28/24 by Princess Fairchild MD aspirin 81 mg PO DAILY atenolol 25 mg PO DAILY atorvastatin 40 mg PO DAILY 90 days calcium citrate-vitamin D3 315 mg-5 mcg (200 unit) 1 tab PO BID 30 days hydrochlorothiazide 25 mg PO QAM 90 days latanoprost 0.005% 1 drp ophthalmic (eye) QPM levothyroxine 88 mcg PO DAILY 90 days paroxetine HCl 40 mg PO QAM 90 days timolol maleate 0.5% drps ophthalmic (eye) DAILY Do you need a note to return to daycare/school/sports/work: No HPI [facility] G0439 HPI Details Health Maintenance - Discussion on healthcare proxy documentation, emphasizing the importance of clarity in assigning decision-making responsibilities. - Mammography performed in October is up to date. - Colonoscopy performed a few years ago with normal results, and the next is expected every 10 years. [facility] - Bone density monitoring managed by Dr. Preciado, indicating osteoporosis, with a follow-up expected this year. - Medication reconciliation to include atenolol, atorvastatin, hydrochlorothiazide, levothyroxine, fluoxetine, and addition of minoxidil and finasteride for hair loss. - No current exercise routine due to back pain, but recommendation for local heat massage and Tylenol for osteoarthritis management. - Labs and X-ray were planned, with fasting blood work suggested. Lab order placed to be done fasting along with x-ray of lumbar spine 1. Essential Hypertension - Atenolol 25 mg to continue. Monitor BP regularly. 2. Hypothyroidism - Levothyroxine 88 mcg, with routine thyroid function tests. 3. Osteoarthritis - local heat, lumbar x-rays planned. Tylenol as needed 4. Hair Loss - Topical minoxidil and finasteride, monitor treatment response. Through Dermatology 5. Depression - Continue paroxetine 40 mg, monitor symptoms. 6. Hyperlipidemia - Atorvastatin 40 mg, lipid panel as per schedule. 7. Osteoporosis - Follow-up bone density test scheduled. Discuss treatment adherence. Managed by Dr. Preciado endocrinology [facility] [facility] - Coordination includes managing care with Dr. Preciado for osteoporosis. - Dermatology follow-up with Dr. Valadez [facility] for hair loss treatment adjustments. - Patient discussed family-centered care plans, including managing her ?s potential cognitive changes, which may necessitate engagement with neuropsychological services. Follow-up 4 months HPI Comments History of Present Illness Details AWV Medical/social history reviewed Past medical history reviewed [place] [facility] / care team list updated Surgical/ hospitalization history reviewed Current medications including OTC and supplements reviewed Family history reviewed Tobacco controlled form updated Alcohol use form updated Illicit drug use in social history reviewed Current diagnosis of depression ?screening updated Appropriate PHQ 2/PHQ-9 completed . Vital signs reviewed Alcohol tobacco drug use reviewed and discussed . MMSE completed . ? Fall risk: ?Assessed Fall history: ?None Have you had any falls with injury in the past year?? No Have you had 2 or more falls in the past year?? No Fall risk assessment completed Home safety discussed with the patient Functional ability assessed and discussed and documented Activities of daily living reviewed and appropriate actions taken . HRA filled out by the patient and reviewed by provider and scanned . Appropriate written screening schedule established . Any health advise needed provided . Advance care planning discussed with the patient , necessary paperwork filled Examination IPPE/AWE: Balance intact Romberg intact Tandem walk Failed walk-in turn intact rise from sit to stand intact . ?Hearing ?whisper test pass . Medication list reviewed, patient is stable on medications All other providers patient is seeing discussed and noted . [facility] Medical History Vitamin D deficiency Osteoporosis Brittle nails Bilateral ankle pain Urinary incontinence, mixed Asthma Hypertension, essential Depression Chronic GERD Lipid disorder Hypothyroid Surgical History History of hip surgery History of surgery on right wrist Hx of tubal ligation Hx of cataract removal with insertion of prosthetic lens History of arthroscopy of left shoulder Hx of repair of right rotator cuff H/O knee surgery Family History Father No problems noted. Mother No problems noted. Social History Housing: House Alcohol intake: current Alcohol intake frequency: a few times a month Patient Tobacco Use Status: Never used Tobacco e-Cigarette/Vaping Use: Never Used Second Hand Smoke Exposure: No service: No Current occupational status: retired Cognitive needs: No Hearing needs: No Vision needs: Yes Questionnaire Medicare Wellness Checkup [age] What gender do you identify with?: female During the past 4 weeks, how much have you been bothered by emotional problems such as feeling anxious, depressed, irritable, sad or downhearted, and blue?: slightly During the past 4 weeks, has your physical & emotional health limited your social activities with family, friends, neighbors, or groups?: not at all During the past 4 weeks, how much bodily pain have you generally had?: very mild pain During the past 4 weeks, was someone available to help you if you needed & wanted help?: yes, as much as I wanted During the past 4 weeks, what was the hardest physical activity you could do for at least 2 minutes?: light Can you get to places out of walking distance without help? (For eg., can you travel alone on buses, taxis or drive your car?): Yes Can you go shopping for groceries or clothes without someone's help?: Yes Can you prepare your own meals?: Yes Can you do your housework without help?: Yes Because of any health problems, do you need the help of another person with your personal care needs such as eating, bathing, dressing or getting around the house?: No Can you handle your own money without help?: Yes During the past 4 weeks, how would you rate your health in general?: very good During the past 4 weeks how have things been going for you?: pretty well Are you having difficulties driving your car?: no Do you always fasten your seat belt when you are in a car?: yes, usually During past 4 weeks, have you been bothered by the following: never: Sexual problems?, Trouble eating well?, Teeth or denture problems? and Problems using the telephone?, seldom: Falling or dizzy when standing up and sometimes: Tiredness or fatigue? Have you fallen 2 or more times in the past year?: No Are you afraid of falling?: Yes Are you a smoker?: no During the past 4 weeks, how many drinks of wine, beer, or other alcoholic beverages did you have?: 1 drink or less per week Do you exercise for about 20 minutes 3 or more times a week?: no, I usually do not exercise this much Have you been given information to help with the following?: yes: Hazards in your house that might hurt you? and yes: Keeping track of your medications? How often do you have trouble taking medicines the way you have been told to take them?: I always take medicine as prescribed How confident are you that you can control & manage most of your health problems?: somewhat confident What is your race?: White Mini Mental State Exam (MMSE) Orientation What is the (year) (season) (date) (day) (month)?: year, season, date, day and month Where are we (state) (county) (town or city) (hospital) (floor)?: state, county, town or city, hospital/clinic and floor Score Score: 10 Activity of Daily Living Bathing - sponge bath, tub bath or shower: receives no assistance (gets in/out by self, if usual bathing means Dressing - getting clothes from closets & drawers, including inner/outer garments & fasteners.: gets clothes & gets completely dressed without help Toileting - going to the 'toilet room' for urine/bowel elimination & cleaning self/arranging clothes: goes to toilet room, cleans self, arranges clothes without help Transfer: moves in & out of bed and chair without help (may use support object) Continence: has occasional 'accidents' Feeding: feeds self without help Total Score: 0 Information obtained from: patient Using telephone: independent Traveling: independent Shopping: independent Preparing meals: independent Housework: independent Taking medicine: independent Managing money: independent PHQ-9 Over the last 2 weeks, how often have you been bothered by any of the following problems? 1. Little interest or pleasure in doing things: not at all 2. Feeling down, depressed, or hopeless: not at all 3. Trouble falling or staying asleep, or sleeping too much: nearly every day 4. Feeling tired or having little energy: several days 5. Poor appetite or overeating: not at all 6. Feeling bad about yourself - or that you are a failure or have let yourself or your family down: not at all 7. Trouble concentrating on things, such as reading the newspaper or watching television: not at all 8. Moving or speaking so slowly that other people could have noticed. Or the opposite - being so fidgety or restless that you have been moving around a lot more than usual: not at all 9. Thoughts that you would be better off or of hurting yourself in some way: not at all Total score: 4 Depression Screening Interpretation: Negative Depression Screening Done: Yes 13633 - PHQ-9 Billing: Yes Source: Developed by Drs. Parag Overton, Rabia Clarke, Kennedy Casey and colleagues, with an educational trinidad from [employer]. Review of Systems Const Denies chills and Denies fever(s) ENT Denies epistaxis and Denies nasal discharge Card Denies chest pain Resp Denies chest congestion, Denies cough and Denies hemoptysis GI Denies diarrhea and Denies nausea Skin/Breast Denies rash Neuro Reports no additional complaints Psych Reports no additional complaints Endo Reports no additional complaints Physical Exam Vital Signs: Last Vital Signs Pulse 76 08/28/24 11:30 BP 142/70 H 08/28/24 11:30 Pulse Ox 96 08/28/24 11:30 Oxygen Delivery Method Room Air 08/28/24 11:30 BMI result Body Mass Index 36.6 Const General: cooperative, comfortable and no acute distress Orientation/consciousness: patient oriented x3 HEENT Head: Yes normocephalic Eyes General: appearance normal, both eyes and all related structures Neck Other: Supple Neck: Yes supple Resp Effort & Inspection: normal respiratory effort, no cough and no stridor Cardio Rhythm: regular rhythm Heart sounds: S1 normal heart sound present and S2 normal heart sound present Skin General skin exam: turgor normal Neuro Other: Motor sensory intact General: patient oriented x3, tone normal and moves all extremities Extrem Other: No lower extremity swelling. Right lower extremity: no edema Left lower extremity: no edema Psych Other: Normal effect, speech clear Assessment & Plan Assessment & Plan (1) Medicare annual wellness visit, subsequent: Code(s): Z00.00 - Encounter for general adult medical examination without abnormal findings (2) Hypertension, essential: Code(s): I10 - Essential (primary) hypertension (3) Lipid disorder: Code(s): E78.9 - Disorder of lipoprotein metabolism, unspecified (4) Chronic GERD: Code(s): K21.9 - Gastro-esophageal reflux disease without esophagitis (5) Osteoporosis: Code(s): M81.0 - Age-related osteoporosis without current pathological fracture Qualifiers: Osteoporosis type: unspecified Presence of current pathological fracture: unspecified Qualified Code(s): M81.0 - Age-related osteoporosis without current pathological fracture (6) Vitamin D deficiency: Code(s): E55.9 - Vitamin D deficiency, unspecified (7) Nephropathy: Code(s): N28.9 - Disorder of kidney and ureter, unspecified (8) Major depression, recurrent: Code(s): F33.9 - Major depressive disorder, recurrent, unspecified Qualifiers: Active/Remission status: in full remission Qualified Code(s): F33.42 - Major depressive disorder, recurrent, in full remission (9) Impaired fasting blood sugar: Code(s): R73.01 - Impaired fasting glucose (10) Other specified hypothyroidism: Code(s): E03.8 - Other specified hypothyroidism (11) Lumbar pain: Code(s): M54.50 - Low back pain, unspecified Plan Health Maintenance - Discussion on healthcare proxy documentation, emphasizing the importance of clarity in assigning decision-making responsibilities. - Mammography performed in October is up to date. - Colonoscopy performed a few years ago with normal results, and the next is expected every 10 years. [facility] - Bone density monitoring managed by Dr. Preciado, indicating osteoporosis, with a follow-up expected this year. - Medication reconciliation to include atenolol, atorvastatin, hydrochlorothiazide, levothyroxine, fluoxetine, and addition of minoxidil and finasteride for hair loss. - No current exercise routine due to back pain, but recommendation for local heat massage and Tylenol for osteoarthritis management. - Labs and X-ray were planned, with fasting blood work suggested. Lab order placed to be done fasting along with x-ray of lumbar spine 1. Essential Hypertension - Atenolol 25 mg to continue. Monitor BP regularly. 2. Hypothyroidism - Levothyroxine 88 mcg, with routine thyroid function tests. 3. Osteoarthritis - local heat, lumbar x-rays planned. Tylenol as needed 4. Hair Loss - Topical minoxidil and finasteride, monitor treatment response. Through Dermatology 5. Depression - Continue paroxetine 40 mg, monitor symptoms. 6. Hyperlipidemia - Atorvastatin 40 mg, lipid panel as per schedule. 7. Osteoporosis - Follow-up bone density test scheduled. Discuss treatment adherence. Managed by Dr. Preciado [facility]ocrinology [place] [facility] - Coordination includes managing care with Dr. Preciado for osteoporosis. - Dermatology follow-up with Dr. Valadez [facility] for hair loss treatment adjustments. - Patient discussed family-centered care plans, including managing her ?s potential cognitive changes, which may necessitate engagement with neuropsychological services. Follow-up 4 months Orders: Orders Complete Blood Count Auto Diff Today E03.8 - Other specified hypothyroidism, E55.9 - Vitamin D deficiency, unspecified, E78.9 - Disorder of lipoprotein metabolism, unspecified, F33.42 - Major depressive disorder, recurrent, in full remission, I10 - Essential (primary) hypertension, K21.9 - Gastro-esophageal reflux disease without esophagitis, M81.0 - Age-related osteoporosis without current pathological fracture, N28.9 - Disorder of kidney and ureter, unspecified, R73.01 - Impaired fasting glucose XR lumbar spine 2-3V Today M54.50 - Low back pain, unspecified Hemoglobin A1c Today E03.8 - Other specified hypothyroidism, E55.9 - Vitamin D deficiency, unspecified, E78.9 - Disorder of lipoprotein metabolism, unspecified, F33.42 - Major depressive disorder, recurrent, in full remission, I10 - Essential (primary) hypertension, K21.9 - Gastro-esophageal reflux disease without esophagitis, M81.0 - Age-related osteoporosis without current pathological fracture, N28.9 - Disorder of kidney and ureter, unspecified, R73.01 - Impaired fasting glucose Comprehensive Jackson. Panel Fast Today E03.8 - Other specified hypothyroidism, E55.9 - Vitamin D deficiency, unspecified, E78.9 - Disorder of lipoprotein metabolism, unspecified, F33.42 - Major depressive disorder, recurrent, in full remission, I10 - Essential (primary) hypertension, K21.9 - Gastro-esophageal reflux disease without esophagitis, M81.0 - Age-related osteoporosis without current pathological fracture, N28.9 - Disorder of kidney and ureter, unspecified, R73.01 - Impaired fasting glucose Lipid Panel Today E03.8 - Other specified hypothyroidism, E55.9 - Vitamin D deficiency, unspecified, E78.9 - Disorder of lipoprotein metabolism, unspecified, F33.42 - Major depressive disorder, recurrent, in full remission, I10 - Essential (primary) hypertension, K21.9 - Gastro-esophageal reflux disease without esophagitis, M81.0 - Age-related osteoporosis without current pathological fracture, N28.9 - Disorder of kidney and ureter, unspecified, R73.01 - Impaired fasting glucose TSH reflex Free T4 Today E03.8 - Other specified hypothyroidism, E55.9 - Vitamin D deficiency, unspecified, E78.9 - Disorder of lipoprotein metabolism, unspecified, F33.42 - Major depressive disorder, recurrent, in full remission, I10 - Essential (primary) hypertension, K21.9 - Gastro-esophageal reflux disease without esophagitis, M81.0 - Age-related osteoporosis without current pathological fracture, N28.9 - Disorder of kidney and ureter, unspecified, R73.01 - Impaired fasting glucose Microalbumin, Random (w Creat) Today E03.8 - Other specified hypothyroidism, E55.9 - Vitamin D deficiency, unspecified, E78.9 - Disorder of lipoprotein metabolism, unspecified, F33.42 - Major depressive disorder, recurrent, in full remission, I10 - Essential (primary) hypertension, K21.9 - Gastro-esophageal reflux disease without esophagitis, M81.0 - Age-related osteoporosis without current pathological fracture, N28.9 - Disorder of kidney and ureter, unspecified, R73.01 - Impaired fasting glucose Medications: New minoxidil-finasteride 5-0.1 % mL topical Quality Reporting (2019) Depression/Bipolar (159/160/161/177) PHQ-9: Total score: 4 Coding Level of Care Code Medicare Subsequent (G0439) Est Pt Level 4 (90102) Diagnoses Medicare annual wellness visit, subsequent Z00.00 Hypertension, essential I10 Lipid disorder E78.9 Chronic GERD K21.9 Osteoporosis, unspecified osteoporosis type, unspecified pathological fracture presence M81.0 Osteoporosis type: unspecified Presence of current pathological fracture: unspecified Vitamin D deficiency E55.9 Nephropathy N28.9 Recurrent major depressive disorder, in full remission F33.42 Active/Remission status: in full remission Impaired fasting blood sugar R73.01 Other specified hypothyroidism E03.8 Lumbar pain M54.50 CPT Codes Advance Care Planning - Time spent: 1-15 minutes, not on file ([id number]) Additional Codes PHQ-9 - 71098 - PHQ-9 Billing: Yes ([id number]) Advance Care Planning Forms completed: [facility] Time spent: 1-15 minutes, not on file
--- OUTSIDE RECORDS SUMMARY | 2024-08-28 12:09 | XMS_ITS | Clinical Summary ---
Author Organization [facility] Address [address] [facility] [address] [place] [address] Phone Care Team Providers Care Radiopharmacist Name Role Phone Princess Fairchild MD Primary Care Provider [phone] Allergies Active Allergy Reactions Criticality Noted Date Comments Amoxicillin 05/04/2021 Betamethasone 05/04/2021 Clavulanic Acid 05/04/2021 Tetanus Toxoids 05/04/2021 Medications aspirin (ST ERIN) 81 MG EC tablet Take 81 mg by mouth 1 (one) time each day Active atorvastatin (LIPITOR) 40 MG tablet Take 40 mg by mouth 1 (one) time each day Active calcium citrate-vitamin D (CITRACAL+D) 315-200 MG-UNIT per tablet Take 1 tablet by mouth 1 (one) time each day Active hydroCHLOROthia zide 25 MG tablet Take 25 mg by mouth 1 (one) time each day Active latanoprost (XALATAN) 0.005 % ophthalmic solution 1 drop every night Active PARoxetine (PAXIL) 40 MG tablet Take 40 mg by mouth 1 (one) time each day in the morning Active timolol (BETIMOL) 0.5 % ophthalmic solution 1 drop 2 (two) times a day Active levothyroxine (SYNTHROID, LEVOTHROID) 88 MCG tablet Take 88 mcg by mouth 1 (one) time each day 02/27/2022 Active atenolol (Tenormin) 25 MG tabletIndicatio ns:Chronic kidney disease, stage 2 (mild),Hyperten vijaya Take 0.5 tablets (12.5 mg total) by mouth 1 (one) time each day 45 tablet 3 02/02/2024 5 Active Active Problems Problem Noted Date Diagnosed Date Hypokalemia 01/16/2024 Assessment & Plan (01/16/2024 10:32 AM EDT): Rechecking BMP today d/t low result of 3.2 a few months back, evaluating for trend Is on thiazide diuretic Iron deficiency anemia, not otherwise specified 11/23/2023 Overview (11/23/2023): Target Hgb 10-12 Monitor CBC w/ iron levels Assessment & Plan (11/23/2023 12:54 PM EDT): Last Hgb below target at 9.8 as of 08/2022 Not on iron supplementation currently Check CBC and iron studies to re-evaluate this Chronic kidney disease, stage 2 (mild) Overview (11/23/2023): 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 hypertensive nephrosclerosis Avoid Nephrotoxins Continue to monitor Renal panel and urine alb/creat ratio q6-12 mos Assessment & Plan (01/16/2024 10:33 AM EDT): Creat stable at 0.79, eGFR 60 as of 11/13/23 Normal lytes during this time, h/o low K on one occurrence Is on thiazide diuretic No proteinuria Checking BMP today along with CBC Optimize BP control Avoid Nephrotoxins Assessment & Plan (11/23/2023 12:55 PM EDT): Stable Creat 0.79, eGFR around 60, prev Creat 1.0 in 08/2022 Checking urine alb/creat ratio today showing no proteinuria Hypertension 05/05/2021 Overview (11/23/2023): Follow low NA diet Avoid NSAIDs/OTC Decongestant medications Target BP <120/80 Assessment & Plan (01/16/2024 10:30 AM EDT): Blood pressure is well controlled Cont HCTZ 25 mg QD and Atenolol 12.5 mg QD - Rx renewed today Trace BLE Edema No changes made today Follow low NA diet Avoid NSAIDs Assessment & Plan (11/23/2023 12:44 PM EDT): Blood pressure is well controlled, 120/80 w/ HR in the 80s Taking HCTZ 25 QD Mild BLE Edema Discontinue Amlodipine 5 mg QD Start Atenolol 12.5 mg QD Monitor home BP and bring in readings to next visit Asthma 05/04/2021 Family History Medical History Relation Comments Heart attack Father Alzheimer's disease Mother Osteoporosis Mother Relation Status Comments Father Mother Social History Tobacco Use Types Packs/Day Years Used Date Smoking Tobacco: Never Smokeless Tobacco: Never Tobacco Cessation:Counseling Given: Not Answered Alcohol Use Standard Drinks/Week Comments Yes 0 (1 standard drink = 0.6 oz pur e alcohol) few times a month Comments Unknown Sex and Gender Information Value Date Recorded Sex Assigned at Female 01/09/2024 5:30 PM EDT Legal Sex Female 1:57 PM EDT Gender Identity Female 01/09/2024 5:30 PM EDT Sexual Orientation Not on file Last Filed Vital Signs Vital Sign Reading Time Taken Comments Blood Pressure 118/60 01/16/2024 10:17 AM EDT Pulse 65 01/16/2024 9:59 AM EDT Temperature - - Respiratory Rate - - Oxygen Saturation 96% 04/26/2022 4:26 PM EDT Inhaled Oxygen Concentration - - Weight 83.9 kg (185 lb) 01/16/2024 9:59 AM EDT Height - - Body Mass Index - - Plan of Treatment Upcoming Encounters Date Type Department Care Team (Late st Contact Info) Description 09/21/2024 10:00 AM EST Office Visit [facility] [address] [phone] Camilla Holbrook ARNP [address] [phone] Health Maintenance Due Date Last Done Comments Breast Cancer Screening 1950 Pneumococcal Vaccine: 65+ Ye ars (1 of 2 - PCV) 1958 Colorectal Cancer Screening: Annual FOBT 2001 Colorectal Cancer Screening: Colonoscopy 2001 Colorectal Cancer Screening: Sigmoidoscopy 2001 Influenza Vaccine (#1) 2024 Hepatitis B Vaccine Aged Out No longe r eligible based on patient's age to complete this topic Insurance MEDICARE [facility] MEDICARE [facility] Care Teams Radiopharmacist Relationship Specialty Start Date End Date Princess Fairchild MD [address] [place] [address] [phone] PCP - General Internal Medicine 05/04/21
== END 2024-08-28 11:59 | disposition home or self-care (01) ==
PROVIDERS: PCP Internal Medicine; Visit Provider Internal Medicine
DX: Z00.00 Encounter for general adult medical examination without abnormal findings (principal); I10 Essential (primary) hypertension; E78.9 Disorder of lipoprotein metabolism, unspecified; F33.42 Major depressive disorder, recurrent, in full remission; K21.9 Gastro-esophageal reflux disease without esophagitis; M81.0 Age-related osteoporosis without current pathological fracture; E55.9 Vitamin D deficiency, unspecified; N28.9 Disorder of kidney and ureter, unspecified; R73.01 Impaired fasting glucose; E03.8 Other specified hypothyroidism; M54.50 Low back pain, unspecified

== ENCOUNTER → 2024-08-28 11:23 | Outpatient (BNVA) | payer MEDICARE, SELFPAY | PROVIDERS: PCP Internal Medicine; Visit Provider Internal Medicine | DX: Z00.00 Encounter for general adult medical examination without abnormal findings (principal); I10 Essential (primary) hypertension; E78.9 Disorder of lipoprotein metabolism, unspecified; K21.9 Gastro-esophageal reflux disease without esophagitis; M81.0 Age-related osteoporosis without current pathological fracture; E55.9 Vitamin D deficiency, unspecified; N28.9 Disorder of kidney and ureter, unspecified; F33.42 Major depressive disorder, recurrent, in full remission; R73.01 Impaired fasting glucose; E03.8 Other specified hypothyroidism; M54.50 Low back pain, unspecified | CPT/HCPCS: 96127; 99212 ==

== ENCOUNTER 2024-09-11 09:36 | Outpatient (REF) | payer MEDICARE, SELFPAY ==
--- NOTE | ~2024-09-11 | XR_ITS ---
CLINICAL HISTORY: M54.50 - Low back pain, unspecified 3 views lumbar spine Comparison: None Findings: No scoliotic curvature. No acute fractures or dislocation. There is multiple degenerative disc and facet change. There are changes of bilateral sacroiliitis. IMPRESSION: No acute findings. This document has been electronically signed by: River Garces MD on 09/12/2024 05:42:13
--- OUTSIDE RECORDS SUMMARY | 2024-09-11 10:03 | XMS_ITS | Patient Health Record ---
Author Organization [facility] Address [address] [place] [phone] Care Team Providers Care Mixing Machine Attendant Name Role Phone PALLAVI FAN Primary Care Provider Dee Pro Unavailable [phone] Allergies Allergen (clinical drug ingredient) Drug/Non Drug Allergy documented on EMR Reaction Allergy Type Onset Date Status Tetanus Unknown Drug Allergy Active Reason For Referral No Information Medications Medication SIG (Take, Route, Frequency, Duration) Notes Start Date End Date Status Baby Aspirin 81 MG Active Omeprazole 20 MG 1 capsule Orally Once a day Not-Taking Calcium + Vitamin D3 600-5 MG-MCG 1 tablet with a meal Orally Once a day for 30 day(s) Active PARoxetine HCl 40 MG 1 tablet in the morning Orally Once a day Active Albuterol PRN Active Diovan HCT 80-12.5 MG 1 tablet Orally On ce a day Not-Taking Atorvastatin Calcium 40 MG 1 tablet Oral ly Once a day for 30 day(s) Active hydroCHLOROthiazide 12.5 MG 1 tablet in the morning Orally Once a day for 30 day(s) Active Prolia 60 MG/ML as directed Subcutaneous Active Levothyroxine Sodium 75 MCG 1 tablet in the morning on an empty stomach Orally Once a day for 30 day(s) Active Pravastatin Sodium 60 1 tablet Orally On ce a day Active Latanoprost 0.005 % 1 drop into affected eye in the evening Ophthalmic Once a day Active Timolol Maleate 0.5 % 1 drop into affect ed eye Ophthalmic Once a day Active Problems Problem Type SNOMED Code ICD Code Onset Dates Problem Status W/U Status Risk Notes Problem Hypothyroidism (53689806) Unspecified hypothyroidism (244.9) Active confirmed Problem Pure hypercholesterolemia (693774265) Pure hypercholesterolemia (272.0) Active confirmed Problem Depressive disorder (99306326) Depressive disorder, not elsewhere classified (311) Active confirmed Problem Inflammatory polyarthropathy (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) Other specified inflammatory polyarthropathies (714.89) Active confirmed Problem Hypertension (45312139) Hypertension (401.9) Active confirmed Problem Mixed incontinence (967480070) Mixed incontinence (N39.46) Active confirmed Problem Age-related osteoporosis (606619115) Age-related osteoporosis without current pathological fracture (M81.0) Active confirmed Problem Glaucoma (00353700) Unspecified glaucoma (H40.9) Active confirmed Problem Old myocardial infarction (5709395) Old myocardial infarction (I25.2) Active confirmed Problem Chronic kidney disease stage 2 (885166787) Chronic kidney disease, stage 2 (mild) (N18.2) Active confirmed Problem Polyp of corpus uter i (09538514) Polyp of corpus uteri (N84.0) Active confirmed Problem Body mass index 30.0 0 to 34.99 (156025507355600) Body mass index [BMI] 33.0-33.9, adult (Z68.33) Active confirmed Plan Of Treatment Pending Test Test Name Order Date Ultrasound : Pelvic 11/15/2015 MM Digital Mammo Screening 07/19/2021 Insurance Providers Payer Name Payer Address Payer Phone Subscriber Number Group Number Insured Name Patient Relationship to Insured Coverage Start Date Coverage End Date MEDICARE [address] CASEY JOHNSON [id number] DAWOOD ROSALES Self - patient is the insured MEDEX [address] [place] [address] [id number] DAWOOD ROSALES Self - patient is the insured Medical (General) History Medical History History ICD Code Hypothyroidism, unspecified E03.9 Major depressive disorder, single episod e, unspecified F32.9 Inflammatory polyarthropathy M06.4 Pure hypercholesterolemia E78.0 Essential (primary) hypertension I10 Polyp of corpus uteri N84.0 Unspecified glaucoma H40.9 Body mass index [BMI] 33.0-33.9, adult Z 68.33 Old myocardial infarction I25.2 Age-related osteoporosis without current pathological fracture M81.0 Mixed incontinence N39.46 Chronic kidney disease, stage 2 (mild) N 18.2 Surgical History Surgery Date(Month/Year) cataract removal right wrist surgery urethral sling bilateral shoulder repair due to arthrit is L breast bx (reports was benign) Hysteroscopy, Polypectomy ([facility]) 03/29/16 Hospitalization History Reason Date(Month/Year) possible 2012 4 vaginal deliveries see surgical hx
--- OUTSIDE RECORDS SUMMARY | 2024-09-11 10:04 | XMS_ITS | Clinical Summary ---
Author Organization [facility] Address [address] [facility] [address] [place] [address] Phone Care Team Providers Care E Merchant Name Role Phone Princess Fairchild MD Primary Care Provider [phone] Allergies Active Allergy Reactions Criticality Noted Date [...] Visit [facility] [address] [phone] Camilla Holbrook ARNP [address] [phone] Health Maintenance Due Date Last Done Comments Breast Cancer Screening 1950 Pneumococcal Vaccine: 65+ Ye ars (1 of 2 - PCV) 1958 Colorectal Cancer Screening: Annual FOBT 2001 Colorectal Cancer Screening: Colonoscopy 2001 Colorectal Cancer Screening: Sigmoidoscopy 2001 Influenza Vaccine (#1) 2024 Hepatitis B Vaccine Aged Out No longe r eligible based on patient's age to complete this topic Insurance MEDICARE [facility] MEDICARE [facility] Care Teams E Merchant Relationship Specialty Start Date End Date Princess Fairchild MD [address] [place] [phone] PCP - General Internal Medicine 05/04/21
[2024-09-11 13:12] LABS: MANUAL DIFF FLAG NO
[2024-09-11 13:22] LABS: Basophils Absolute Auto 0.1 X10*3/uL (0.0-0.2); Eosinophils Absolute Auto 0.3 X10*3/uL (0.0-0.4); Eosinophils Percent Auto 3.2 % (0-4); Hematocrit 40.1 % (37.0-47.0); Hemoglobin 12.5 g/dl (12.0-16.0); Imm Gran Abs Auto 0.03 X10*3/uL (0.00-0.03); Imm Gran Pct Auto 0.4 % (0.0-0.4); Lymphocytes Absolute Auto 2.1 X10*3/uL (1.2-4.9); Mean Corpuscular HGB Conc 31.2 g/dl (31.0-35.0); Mean Corpuscular Hemoglobin 26.5 pg (27.0-33.0); Mean Corpuscular Volume 85.1 fL (80.0-98.0); Mean Platelet Volume 10.5 fL (9.4-12.3); Monocytes Absolute Auto 0.5 X10*3/uL (0.1-1.2); Monocytes Percent Auto 5.9 % (2-11); Neutrophils Absolute Auto 4.9 x10*3/uL (2.0-8.3); Neutrophils Percent Auto 62.5 % (45-73); Platelet Count 326 X10*3/uL (160-400); Red Blood Count 4.71 X10*6/uL (4.20-5.50); Red Cell Distribution Width 13.8 % (11.0-16.0); White Blood Count 7.8 X10*3/uL (4.8-10.8)
[2024-09-11 13:42] LABS: Creatinine Urine 358.14 mg/dL; Microalbum/Creatinine Ratio Ur 62.2 ug/mg cr (<30)
[2024-09-11 13:47] LABS: Estimated Average Glucose 206 mg/dL; Hemoglobin A1c % 8.8 % (<6.0); Total Hemoglobin (HGBA1C) 3237.9975 umol/L
[2024-09-11 13:50] LABS: Alanine Aminotransferase 51 U/L (0-31); Albumin Level 3.9 g/dL (3.5-5.0); Alkaline Phosphatase 99 U/L (39-117); Anion Gap 13 (12-20); Aspartate Amino Transferase 59 U/L (5-31); Bilirubin Total 0.4 mg/dL (0.0-1.0); Blood Urea Nitrogen 17 mg/dL (9-16); Calcium 9.3 mg/dL (8.4-10.2); Carbon Dioxide 27 mmol/L (22-29); Chloride 103 mmol/L (96-108); Cholesterol 161 mg/dL (<200); Estimated Glomerular Filt Rate > 60; Glucose Fasting 183 mg/dL (60-99); HDL Cholesterol 37 mg/dL (>40); LDL Cholesterol Calculated 88 mg/dL (<100); Sodium 139 mmol/L (135-145); Total Protein 7.6 g/dL (6.5-8.0); Triglycerides 181 mg/dL (<150)
[2024-09-11 14:40] LABS: Free T4 (Free Thyroxine) 1.08 ng/dL (0.71-1.85)
== END 2024-09-11 09:37 | disposition home or self-care (01) ==
LOC: HO.HMGCX 09:36
PROVIDERS: PCP Internal Medicine; Visit Provider Internal Medicine
DX: M54.50 Low back pain, unspecified (principal); E78.9 Disorder of lipoprotein metabolism, unspecified; K21.9 Gastro-esophageal reflux disease without esophagitis; M81.0 Age-related osteoporosis without current pathological fracture; E55.9 Vitamin D deficiency, unspecified; N28.9 Disorder of kidney and ureter, unspecified; F33.42 Major depressive disorder, recurrent, in full remission; R73.01 Impaired fasting glucose; E03.8 Other specified hypothyroidism; I10 Essential (primary) hypertension
CPT/HCPCS: 36415; 72100; 80053; 80061; 82043; 82570; 83036; 84439; 84443; 85025

== ENCOUNTER → 2024-09-11 09:55 | Outpatient (BNV) | payer MEDICARE, SELFPAY | PROVIDERS: PCP Internal Medicine; Visit Provider Specialist | DX: M54.50 Low back pain, unspecified (principal) | CPT/HCPCS: 72100 ==

== ENCOUNTER 2024-09-17 08:16 | Outpatient (AMB) | payer MEDICARE, SELFPAY ==
--- OUTSIDE RECORDS SUMMARY | 2024-09-17 08:27 | XMS_ITS | Clinical Summary ---
Author Organization [facility] Address [address] [facility] [address] [place] [address] Phone Care Team Providers Care Certified Ski Patroller Name Role Phone Princess Fairchild MD Primary Care Provider [phone] Allergies Active Allergy Reactions Criticality Noted Date [...] Visit [facility] [address] [phone] Camilla Holbrook ARNP [address] [phone] Health Maintenance Due Date Last Done Comments Breast Cancer Screening 1950 Pneumococcal Vaccine: 65+ Ye ars (1 of 2 - PCV) 1958 Colorectal Cancer Screening: Annual FOBT 2001 Colorectal Cancer Screening: Colonoscopy 2001 Colorectal Cancer Screening: Sigmoidoscopy 2001 Influenza Vaccine (#1) 2024 Hepatitis B Vaccine Aged Out No longe r eligible based on patient's age to complete this topic Insurance MEDICARE [facility] MEDICARE [facility] Care Teams Certified Ski Patroller Relationship Specialty Start Date End Date Princess Fairchild MD [address] [place] [address] [phone] PCP - General Internal Medicine 05/04/21
--- NOTE | 2024-09-17 08:59 | MHC.PC.OV ---
Intake Visit Reasons: Discuss Labs Allergies tetanus toxoid, adsorbed [Tetanus Toxoid,Adsorbed] Allergy (Severe, Verified 08/28/24 11:36) SEVERE SWELLING amoxicillin [Augmentin] Allergy (Unknown, Verified 08/28/24 11:36) Unknown clavulanic acid [Augmentin] Allergy (Unknown, Verified 08/28/24 11:36) Unknown Tetanus Allergy (Unknown, Uncoded 03/23/24 10:33) swelling Tetanus Immune Globulin Allergy (Unknown, Uncoded 03/23/24 10:33) Unknown From Augmentin Adverse Reaction (Severe, Uncoded 03/23/24 10:33) SEVERE N/V Medication List - Last Reconciled 09/17/24 by Princess Fairchild MD aspirin 81 mg PO DAILY atenolol 25 mg PO DAILY atorvastatin 40 mg PO DAILY 90 days calcium citrate-vitamin D3 315 mg-5 mcg (200 unit) 1 tab PO BID 30 days hydrochlorothiazide 25 mg PO QAM 90 days latanoprost 0.005% 1 drp ophthalmic (eye) QPM levothyroxine 88 mcg PO DAILY 90 days minoxidil-finasteride 5-0.1 % mL topical paroxetine HCl 40 mg PO QAM 90 days timolol maleate 0.5% drps ophthalmic (eye) DAILY Tobacco use date assessed: 09/17/24 Fall risk assessment: 1 Fall in past year Last assessed Fall Risk: 09/17/24 Dental Screening Dental Screen Date: 09/17/24 Did you have a dental visit in the last 12 months?: Yes Did you have a dental problem in the last 6 months where you did not have access to dental care?: No Was dental information given to patient?: Patient has dentist HPI Discuss Labs HPI Details History The patient is a 74-year-old female presenting for review of recent laboratory results. - Hemoglobin A1c increased to 8.8 from 6.9, indicating deterioration in glycemic control. - Exhibits longstanding hypothyroidism, with current TSH level of 4.10 suggesting suboptimal therapy. - Under management for osteoporosis, which is overseen by an sanding machine tender automatic. - Presents stable but mildly abnormal liver enzyme readings. Problem List - Type 2 Diabetes Mellitus - Osteoporosis - Hypothyroidism - Abnormal Liver Enzymes Patient Instructions - Start taking Glipizide 2.5 mg with Metformin 500 mg as a single combination tablet daily with breakfast. - Obtain a glucometer and learn how to measure blood sugar levels by contacting the clinic for instruction. - Monitor blood sugar levels every morning and contact us with results. - Attend a dietary consultation for blood sugar management guidance. - Follow-up after obtaining the glucometer and learning to use it. Review of Systems - General: No fever no chills - Neurological: No headaches no dizziness - Ear nose throat: No sore throat no hearing difficulty no ear pain - Cardiovascular: No syncope, no chest pain, no palpitations - Gastrointestinal: No nausea vomiting or diarrhea - Endocrine: No polyuria polydipsia no heat intolerance - Genitourinary: No dysuria , no blood in urine [facility] Medical History Vitamin D deficiency Osteoporosis Brittle nails Bilateral ankle pain Urinary incontinence, mixed Asthma Hypertension, essential Depression Chronic GERD Lipid disorder Hypothyroid Surgical History History of hip surgery History of surgery on right wrist Hx of tubal ligation Hx of cataract removal with insertion of prosthetic lens History of arthroscopy of left shoulder Hx of repair of right rotator cuff H/O knee surgery Family History Father No problems noted. Mother No problems noted. Social History Housing: House Alcohol intake: current Alcohol intake frequency: a few times a month Patient Tobacco Use Status: Never used Tobacco e-Cigarette/Vaping Use: Never Used Second Hand Smoke Exposure: No service: No Current occupational status: retired Cognitive needs: No Hearing needs: No Vision needs: Yes Questionnaire Thrive Questionnaire Date Thrive assessed: 08/28/24 JILLIAN-7 AMB Questionnaire JILLIAN-7 Date JILLIAN - 7 assessed: 09/17/24 Feeling nervous, anxious, or on edge: 0 = Not at all Not being able to stop or control worryin = Not at all Worrying too much about different things: 0 = Not at all Trouble relaxin = Not at all Being so restless that it is hard to sit still: 0 = Not at all Becoming easily annoyed or irritable: 0 = Not at all Feeling afraid as if something awful might happen: 0 = Not at all Total JILLIAN-7 score (0-4 normal; 5-9 mild; 10-14 moderate; 15-21 severe): 0 Source: Developed by Drs. Parag Overton, Rabia Clarke, Kennedy Casey and colleagues, with an educational trinidad from [employer]. JILLIAN-7 Assessment Billing JILLIAN-7 Assessment Tool: JILLIAN-7 Assessment 37533 Physical exam (Primary Care) Tobacco/Smoking Status: Tobacco use Status Tobacco use date assessed 09/17/24 09/17/24 09:02 Patient Tobacco Use Status Never used Tobacco 09/17/24 09:02 e-Cigarette/Vaping Use Never Used 09/17/24 09:02 Thrive Assessment: Date of Thrive Assessment Date Thrive assessed 08/28/24 09/17/24 09:02 Telehealth Telehealth Telehealth Platform: Telephone Location of provider rendering services: practice address Location of patient: address on file Patient Identification confirmed using: Name, : Yes Telehealth method: video Patient verbally consented to treatment: Yes Patient verbally consented to billing insurance company: Yes Minutes spent on Phone/Video with Pt.: 14 Coding Level of Care Code Tele Est Pt Level 3 (54736) Diagnoses Uncontrolled type 2 diabetes mellitus with hyperglycemia E11.65 Diabetes mellitus type: type 2 Other specified hypothyroidism E03.8 Additional Codes JILLIAN-7 Assessment Billing - JILLIAN-7 Assessment Tool: JILLIAN-7 Assessment 91178 ([id number]) Assessment & Plan Assessment & Plan (1) Uncontrolled diabetes mellitus with hyperglycemia: Code(s): E11.65 - Type 2 diabetes mellitus with hyperglycemia Category: Medical Qualifiers: Diabetes mellitus type: type 2 Qualified Code(s): E11.65 - Type 2 diabetes mellitus with hyperglycemia (2) Other specified hypothyroidism: Code(s): E03.8 - Other specified hypothyroidism Category: Medical Plan History The patient is a 74-year-old female presenting for review of recent laboratory results. - Hemoglobin A1c increased to 8.8 from 6.9, indicating deterioration in glycemic control. - Exhibits longstanding hypothyroidism, with current TSH level of 4.10 suggesting suboptimal therapy. - Under management for osteoporosis, which is overseen by an sanding machine tender automatic. - Presents stable but mildly abnormal liver enzyme readings. Problem List - Type 2 Diabetes Mellitus - Osteoporosis - Hypothyroidism - Abnormal Liver Enzymes Patient Instructions - Start taking Glipizide 2.5 mg with Metformin 500 mg as a single combination tablet daily with breakfast. - Obtain a glucometer and learn how to measure blood sugar levels by contacting the clinic for instruction. - Monitor blood sugar levels every morning and contact us with results. - Attend a dietary consultation for blood sugar management guidance. - Follow-up after obtaining the glucometer and learning to use it. Review of Systems - General: No fever no chills - Neurological: No headaches no dizziness - Ear nose throat: No sore throat no hearing difficulty no ear pain - Cardiovascular: No syncope, no chest pain, no palpitations - Gastrointestinal: No nausea vomiting or diarrhea - Endocrine: No polyuria polydipsia no heat intolerance - Genitourinary: No dysuria , no blood in urine Medications: New glipizide-metformin 2.5-500 mg 1 tab PO DAILY 30 tabs 1RF Changed From levothyroxine 88 mcg PO DAILY 90 days 90 tabs 0RF To levothyroxine 100 mcg PO DAILY 90 days 90 tabs 0RF
== END 2024-09-17 09:52 | disposition home or self-care (01) ==
LOC: HO.HMCC 08:16
PROVIDERS: PCP Internal Medicine; Visit Provider Internal Medicine
DX: E11.65 Type 2 diabetes mellitus with hyperglycemia (principal); E03.8 Other specified hypothyroidism

== ENCOUNTER → 2024-09-17 08:16 | Outpatient (BNVA) | payer MEDICARE, SELFPAY | PROVIDERS: PCP Internal Medicine; Visit Provider Internal Medicine | DX: E11.65 Type 2 diabetes mellitus with hyperglycemia (principal); E03.8 Other specified hypothyroidism | CPT/HCPCS: 96127 ==

== ENCOUNTER 2024-10-09 09:19 | Outpatient (REF) | payer MEDICARE, SELFPAY ==
--- OUTSIDE RECORDS SUMMARY | 2024-10-09 11:20 | XMS_ITS | Clinical Summary ---
Author Organization [facility] Address [address] [facility] [address] [phone] Phone Care Team Providers Care Appeals Representative Name Role Phone Princess Fairchild MD Primary Care Provider [phone] Allergies Active Allergy Reactions Criticality Noted Date [...] by mouth 1 (one) time each day 2 Active atenolol (Tenormin) 25 MG tabletIndicatio ns:Chronic kidney disease, stage 2 (mild),Hyperten vijaya Take 0.5 tablets (12.5 mg total) by mouth 1 (one) time each day 45 tablet 3 4 02/02/20 25 Active glipiZIDE-metFO RMIN (METAGLIP) 2.5-500 MG per tablet Take 1 tablet by mouth 1 (one) time each day 5 Active Finasteride-Min oxidil 0.1-7 % solution Apply topically Active Active Problems Problem Noted Date Diagnosed [...] in readings to next visit Asthma 05/04/2021 Encounters Date Type Department Care Team Description 09/21/2024 10:00 AM EST Office Visit [facility] [address] [phone] Camilla Holbrook ARNP Chronic kidney disease, stage 2 (mild) (Primary Dx); Hypertension; Iron deficiency anemia, not otherwise specified from Last 3 Months Family History Medical History Relation Comments Heart [...] Sign Reading Time Taken Comments Blood Pressure 120/70 09/21/2024 10:49 AM EST Pulse 78 09/21/2024 10:13 AM EST Temperature - - Respiratory Rate - - Oxygen Saturation 97% 09/21/2024 10:13 AM EST Inhaled Oxygen Concentration - - Weight 85.3 kg (188 lb) 09/21/2024 10:13 AM EST Height - - Body Mass Index - - Plan of Treatment Upcoming Encounters Date Type Department Care Team (Late st Contact Info) Description 09/21/2025 10:00 AM EST Office Visit [facility] [address] [place] [address] [phone] Camilla Holbrook ARNP [address] [phone] Health Maintenance Due Date Last Done Comments Breast Cancer Screening 1950 Pneumococcal Vaccine: 65+ Ye ars (1 of 2 - PCV) 1958 Colorectal Cancer Screening: Annual FOBT 2001 Colorectal Cancer Screening: Colonoscopy 2001 Colorectal Cancer Screening: Sigmoidoscopy 2001 Influenza Vaccine (#1) 2024 Hepatitis B Vaccine Aged Out No longe r eligible based on patient's age to complete this topic Insurance MEDICARE [facility] MEDICARE [facility] Care Teams Appeals Representative Relationship Specialty Start Date End Date Princess Fairchild MD [address] [place] [phone] PCP - General Internal Medicine 05/04/21
--- OUTSIDE RECORDS SUMMARY | 2024-10-09 11:20 | XMS_ITS | Encounter Summary ---
Author Organization [facility] Address [address] [address] Phone Care Team Providers Care Shrimp Peeling Machine Operator Name Role Phone Princess Fairchild MD Primary Care Provider [phone] Reason for Visit * Reason Comments Chronic Kidney Disease Encounter Details Date Type Department Care Team ([facility] st Contact Info) Description 09/21/2024 10:00 AM EST Office Visit [facility] [address] [phone] Camilla Holbrook ARNP [address] [phone] Chronic kidney disease, stage 2 (mild) (Primary Dx); Hypertension; Iron deficiency anemia, not otherwise specified Social History Tobacco Use Types Packs/Day Years Used Date Smoking Tobacco: Never Smokeless Tobacco: Never Alcohol Use Standard Drinks/Week Comments Yes 0 (1 standard drink = 0.6 oz pur e alcohol) few times a month Comments Unknown Sex and Gender Information Value Date Recorded Sex Assigned at Female 01/09/2024 5:30 PM EDT Legal Sex Female 1:57 PM EDT Gender Identity Female 01/09/2024 5:30 PM EDT Sexual Orientation Not on file documented as of this encounter Last Filed Vital Signs Vital Sign Reading Time Taken Comments Blood Pressure 120/70 09/21/2024 10:49 AM EST Pulse 78 09/21/2024 10:13 AM EST Temperature - - Respiratory Rate - - Oxygen Saturation 97% 09/21/2024 10:13 AM EST Inhaled Oxygen Concentration - - Weight 85.3 kg (188 lb) 09/21/2024 10:13 AM EST Height - - Body Mass Index - - documented in this encounter Progress Notes * Camilla Holbrook, PLEAT PATTERNMAKER - 09/21/2024 10:00 AM EST Images from the original note were not included. Patient Name: Deidra Panda, Female Date of : 1950, 74 y.o. Date: 09/21/2024 History of Present Illness Deidra Panda is a 74 y.o. female here in follow-up for CKD Stage 2 r/t age and hypertensive nephrosclerosis with h/o GERD, Hypothyroidism and Hyperlipidemia. Feet swelling a bit more at the end of the day than usual for the past few months. States does lovesalty foods and is trying to avoid. Reports going for MRI of brain for some intermittent forgetfulness - seeing Neurologist. Mom had Alzheimer's. Had this done since and results showed normal brain atrophy. The following portions of the patient's chart were reviewed in this encounter and updated as appropriate: Allergies Meds Problems Med Hx Surg Hx Fam Hx Review of Systems Constitutional: Negative for chills, fever, weight gain and weight loss. HENT: Negative for congestion, hearing loss and nosebleeds. Eyes: Negative for blurred vision and double vision. Respiratory: Negative for cough and shortness of breath. Cardiovascular: Negative for chest pain, palpitations and leg swelling. Gastrointestinal: Negative for abdominal pain, diarrhea, nausea, vomiting and poor appetite. Genitourinary: Negative for dysuria, flank pain, frequency, hematuria and urgency. Musculoskeletal: Negative. Skin: Negative for rash. Neurological: Negative for dizziness, tingling, numbness and headaches. Endo/Heme/Allergies: Negative. Psychiatric/Behavioral: Negative. Medication List Current Outpatient Medications Medication Sig Dispense Refill aspirin (ST ERIN) 81 MG EC tablet Take 81 mg by mouth 1 (one) time each day atenolol (Tenormin) 25 MG tablet Take 0.5 tablets (12.5 mg total) by mouth 1 (one) time each day 45tablet 3 atorvastatin (LIPITOR) 40 MG tablet Take 40 mg by mouth 1 (one) time each day calcium citrate-vitamin D (CITRACAL+D) 315-200 MG-UNIT per tablet Take 1 tablet by mouth 1 (one) time each day Finasteride-Minoxidil 0.1-7 % solution Apply topically glipiZIDE-metFORMIN (METAGLIP) 2.5-500 MG per tablet Take 1 tablet by mouth 1 (one) time each day hydroCHLOROthiazide 25 MG tablet Take 25 mg by mouth 1 (one) time each day latanoprost (XALATAN) 0.005 % ophthalmic solution 1 drop every night levothyroxine (SYNTHROID, LEVOTHROID) 88 MCG tablet Take 88 mcg by mouth 1 (one) time each day (Patient taking differently: Take 100 mcg by mouth 1 (one) time each day) PARoxetine (PAXIL) 40 MG tablet Take 40 mg by mouth 1 (one) time each day in the morning timolol (BETIMOL) 0.5 % ophthalmic solution 1 drop 2 (two) times a day No current facility-administered medications for this visit. Allergy List Allergies Allergen Reactions Amoxicillin Betamethasone Dipropionate (Augmented) [Betamethasone] Clavulanic Acid Tetanus Toxoids Physical Exam BP 120/70 (BP Location: Right upper arm, Patient Position: Sitting, BP Cuff Size: Large adult) Pulse 78 Wt 188 lb (85.3 kg) SpO2 97% Vitals reviewed. Constitutional: She is oriented to person, place, and time. She does not appear ill. No distress. HEENT: Mouth/Throat: Oropharynx is clear and moist. Eyes: Conjunctivae are normal. Neck: No JVD present. Cardiovascular: Normal rate and regular rhythm. She exhibits no edema. Pulmonary/Chest: Effort normal and breath sounds normal. Abdominal: Soft. There is no abdominal tenderness. Obese abdomen Neurological: She is alert and oriented to person, place, and time. Skin: Skin is warm and dry. No rash noted. No erythema. Psychiatric: She has a normal mood and affect. Her behavior is normal. Judgment normal. Chemistry Lab Units 01/16/24 1035 11/13/23 0000 CREATININE mg/dL -- 0.79 BUN mg/dL -- 14 POTASSIUM -- 4.3 SODIUM -- 142 CO2 mmol/L -- 31 EGFRNAFR -- <60 WBC AUTO x10E3/uL 6.9 -- HEMATOCRIT % 37.2 -- HEMOGLOBIN g/dL 11.6 -- PLATELETS AUTO x10E3/uL 308 -- Assessment & Plan Problem List Items Addressed This Visit Chronic kidney disease, stage 2 (mild) - Primary (Chronic) Overview 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 hypertensive nephrosclerosis Avoid Nephrotoxins Continue to monitor Renal panel and urine alb/creat ratio q6-12 mos Hypertension Overview Follow low NA diet Avoid NSAIDs/OTC Decongestant medications Target BP <120/80 Stable Creatinine 0.79, GFR >60 Normal Lytes No h/o proteinuria Optimize DM and BP control Avoid Nephrotoxins Blood pressure is well controlled No Edema C/w HCTZ 25 mg QD, Atenolol 25 mg QD No medication changes Hgb within target at 11.6 as of 01/16/24 Monitor iron studies Not on oral iron supp Keep Hgb 10-12 PT REPORTS HGBA1C 8% RECENTLY STARTED ON METFORMIN W/ GLIPIZIDE 2.5/500 MG QD - HAS NOT STARTED YET Return in about 1 year (around 09/21/2025) for Next scheduled follow-up with AURELIANO Strange Cosigned by Joshua Willis MD at 09/23/2024 8:20 PM EST documented in this encounter Plan of Treatment Upcoming Encounters Date Type Department Care Team (Late st Contact Info) Description 09/21/2025 10:00 AM EST Office Visit [facility] [address] [phone] Camilla Holbrook ARNP [address] [phone] documented as of this encounter Visit Diagnoses Diagnosis Chronic kidney disease, stage 2 (mild)- Primary Hypertension Iron deficiency anemia, not otherwise specified documented in this encounter Care Teams Shrimp Peeling Machine Operator Relationship Specialty Start Date End Date Princess Fairchild MD [address] [place] [address] PCP - General Internal Medicine 05/04/21 documented as of this encounter
[2024-10-15 02:28] LABS: N-Telopeptide 22 (see note); NTXCreaRU 152 mg/dL (20-275)
== END 2024-10-09 09:20 | disposition home or self-care (01) ==
LOC: HO.HMGCLDS 09:19
PROVIDERS: PCP Internal Medicine; Referring Provider Internal Medicine Endocrinology, Diabetes & Metabolism; Visit Provider Internal Medicine
DX: M81.0 Age-related osteoporosis without current pathological fracture (principal)
CPT/HCPCS: 82523

== ENCOUNTER 2024-10-15 08:06 | Outpatient (AMB) | payer MEDICARE, SELFPAY ==
--- NOTE | 2024-10-15 08:49 | A.OFFPC_ITS ---
Intake Visit Reasons: 1M F/U Allergies tetanus toxoid, adsorbed [Tetanus Toxoid,Adsorbed] Allergy (Severe, Verified 10/15/24 08:49) SEVERE SWELLING amoxicillin [Augmentin] Allergy (Unknown, Verified 10/15/24 08:49) Unknown clavulanic acid [Augmentin] Allergy (Unknown, Verified 10/15/24 08:49) Unknown Tetanus Allergy (Unknown, Uncoded 03/23/24 10:33) swelling Tetanus Immune Globulin Allergy (Unknown, Uncoded 03/23/24 10:33) Unknown From Augmentin Adverse Reaction (Severe, Uncoded 03/23/24 10:33) SEVERE N/V Medication List - Last Reconciled 10/15/24 by Princess Fairchild MD alcohol swabs (Alcohol Pads) 1 pad topical DAILY aspirin 81 mg PO DAILY atenolol 25 mg PO DAILY atorvastatin 40 mg PO DAILY 90 days blood sugar diagnostic (FreeStyle Lite Strips) Check blood sugar once daily as directed blood-glucose meter (FreeStyle Lite Meter kit) Check blood sugar once daily as directed calcium citrate-vitamin D3 315 mg-5 mcg (200 unit) 1 tab PO BID 30 days glipizide-metformin 2.5-500 mg 1 tab PO DAILY hydrochlorothiazide 25 mg PO QAM 90 days lancets (FreeStyle Lancets) Check blood sugar once daily as directed latanoprost 0.005% 1 drp ophthalmic (eye) QPM levothyroxine 100 mcg PO DAILY 90 days minoxidil-finasteride 5-0.1 % mL topical paroxetine HCl 40 mg PO QAM 90 days timolol maleate 0.5% drps ophthalmic (eye) DAILY Tobacco use date assessed: 10/15/24 Fall risk assessment: No Falls in past year Last assessed Fall Risk: 10/15/24 Dental Screening Dental Screen Date: 10/15/24 Did you have a dental visit in the last 12 months?: Yes Did you have a dental problem in the last 6 months where you did not have access to dental care?: No Was dental information given to patient?: Patient has dentist HPI 1M F/U HPI Details History - The patient is a 74-year-old female pr esenting with management of diabetes mellitus with glucometer usage and medication follow-up. - Glipizide 2.5 mg was started for the m anagement of diabetes mellitus. - The patient noted experiencing diarrhe a intermittently since the initiation of glipizide therapy. - A glucometer was obtained, but its use was impeded due to the malfunctioning fingerstick injector provided with it. - The issue was resolved this week with a replacement injector, enabling proper function of the glucometer. - The patient has not yet started measur ing blood glucose and plans to arrange an appointment with the nurse navigator to learn proper glucose monitoring technique. - Blood glucose levels are currently unr eported as measurement has yet to commence. A1c increased to 8.8 from 6.9, indicating deterioration in glycemic control. before we started the Glipizide - Under management for osteoporosis, [facility] an manager metrology. Problem List - Type 2 Diabetes Mellitus - Osteoporosis Patient Instructions - Continue taking glipizide 2.5 mg as pr escribed for diabetes management. - Contact the nurse navigator to schedul e an appointment for assistance with glucometer instruction and usage. - Begin measuring fasting blood glucose levels daily in the morning before breakfast. - Record fasting blood glucose readings - Once readings are obtained, contact [facility] nurse navigator to report the results, Review of Systems - General: No fever no chills - Neurological: No headaches no dizziness - Ear nose throat: No sore throat no hearing difficulty no ear pain - Cardiovascular: No syncope, no chest pain, no palpitations - Gastrointestinal: No nausea vomiting or diarrhea - Endocrine: No polyuria polydipsia no heat intolerance - Genitourinary: No dysuria , no blood in urine PFSH Medical History Vitamin D deficiency Osteoporosis Brittle nails Bilateral ankle pain Urinary incontinence, mixed Asthma Hypertension, essential Depression Chronic GERD Lipid disorder Hypothyroid Surgical History History of hip surgery History of surgery on right wrist Hx of tubal ligation Hx of cataract removal with insertion of prosthetic lens History of arthroscopy of left shoulder Hx of repair of right rotator cuff H/O knee surgery Family History Father No problems noted. Mother No problems noted. Social History Housing: House Alcohol intake: current Alcohol intake frequency: a few times a month Patient Tobacco Use Status: Never used Tobacco e-Cigarette/Vaping Use: Never Used Second Hand Smoke Exposure: No service: No Current occupational status: retired Cognitive needs: No Hearing needs: No Vision needs: Yes Questionnaire PHQ-9 Over the last 2 weeks, how often have you been bothered by any of the following problems? [id number] - PHQ-9 Billing: Patient declined-do not bill Source: Developed by Drs. Parag Overton, Kennedy Rendon and colleagues, with an educational trinidad from [employer]. Thrive Questionnaire Date Thrive assessed: 08/28/24 AUDIT C Alcohol Use Questionnaire (AUDIT-C) 1. How often do you have a drink containing alcohol?: Monthly or less 2. How many drinks containing alcohol do you have on a typical day when you are drinking?: 1 or 2 3. How often do you have six or more drinks on one occasion?: Never Total Score: 1 Score Reviewed/Action Taken: Yes JILLIAN-7 AMB Questionnaire JILLIAN-7 Date JILLIAN - 7 assessed: 09/17/24 Source: Developed by Drs. Parag Overton, Kennedy Rendon and colleagues, with an educational trinidad from [employer]. Physical exam (Primary Care) Tobacco/Smoking Status: Tobacco use Status Tobacco use date assessed 10/15/24 10/15/24 08:50 Patient Tobacco Use Status Never used Tobacco 10/15/24 08:50 e-Cigarette/Vaping Use Never Used 10/15/24 08:50 Thrive Assessment: Date of Thrive Assessment Date Thrive assessed 08/28/24 10/15/24 08:50 Telehealth Telehealth Telehealth Platform: [facility] Location of provider rendering services: practice address Location of patient: address on file Patient Identification confirmed using: Name, : Yes Telehealth method: voice only Patient verbally consented to treatment: Yes Patient verbally consented to billing insurance company: Yes Patient informed of any privacy concerns related to visit: Yes Minutes spent on Phone/Video with Pt.: 13 Coding Level of Care Code Tele Est Pt Level 3 (27810) Diagnoses Uncontrolled type 2 diabetes mellitus with hyperglycemia E11.65 Diabetes mellitus type: type 2 Assessment & Plan Assessment & Plan (1) Uncontrolled diabetes mellitus with hyperglycemia: Code(s): E11.65 - Type 2 diabetes mellitus with hyperglycemia Category: Medical Qualifiers: Diabetes mellitus type: type 2 Qualified Code(s): E11.65 - Type 2 diabetes mellitus with hyperglycemia Plan History - The patient is a 74-year-old female presenting with management of diabetes mellitus with glucometer usage and medication follow-up. - Glipizide 2.5 mg was started for the management of diabetes mellitus. - The patient noted experiencing diarrhea intermittently since the initiation of glipizide therapy. - A glucometer was obtained, but its use was impeded due to the malfunctioning fingerstick injector provided with it. - The issue was resolved this week with a replacement injector, enabling proper function of the glucometer. - The patient has not yet started measuring blood glucose and plans to arrange an appointment with the nurse navigator to learn proper glucose monitoring technique. - Blood glucose levels are currently unreported as measurement has yet to commence. A1c increased to 8.8 from 6.9, indicating deterioration in glycemic control. be fore we started the Glipizide - Under management for osteoporosis, which is overseen by an manager metrology. Problem List - Type 2 Diabetes Mellitus - Osteoporosis Patient Instructions - Continue taking glipizide 2.5 mg as prescribed for diabetes management. - Contact the nurse navigator to schedule an appointment for assistance with glucometer instruction and usage. - Begin measuring fasting blood glucose levels daily in the morning before breakfast. - Record fasting blood glucose readings - Once readings are obtained, contact the nurse navigator to report the results,
== END 2024-10-15 10:00 | disposition home or self-care (01) ==
LOC: HO.HMCC 08:06
PROVIDERS: PCP Internal Medicine; Visit Provider Internal Medicine
DX: E11.65 Type 2 diabetes mellitus with hyperglycemia (principal)

== ENCOUNTER → 2024-10-15 08:06 | Outpatient (BNVA) | payer MEDICARE, SELFPAY | PROVIDERS: PCP Internal Medicine; Visit Provider Internal Medicine ==

== ENCOUNTER 2024-10-19 09:26 | Outpatient (AMB) | payer MEDICARE, SELFPAY ==
--- NOTE | 2024-10-19 09:27 | A.OFFVIS_ITS ---
Vital Signs 10/19/24 09:31 Height 4 ft 10.54 in Weight 189 lb 13.088 oz BMI 38.9 BP 132/62 Blood Pressure Location Lt brachial Position Sitting Pulse 66 Pulse Source Pulse Oximeter Pulse Oximetry (%) 97 Oxygen Delivery Method Room Air Intake Visit Reasons: f/u osteoporosis Intake Note: Patient present today for Osteoporosis follow up. Integrated Program Teacher Required: No Accompanied by: Self / Same As Patient Allergies tetanus toxoid, adsorbed [Tetanus Toxoid,Adsorbed] Allergy (Severe, Verified 0 10/19/24 09:31) SEVERE SWELLING amoxicillin [Augmentin] Allergy (Unknown, Verified 10/19/24 09:31) Unknown clavulanic acid [Augmentin] Allergy (Unknown, Verified 10/19/24 09:31) Unknown Tetanus Allergy (Unknown, Uncoded 10/19/24 09:31) swelling Tetanus Immune Globulin Allergy (Unknown, Uncoded 10/19/24 09:31) Unknown From Augmentin Adverse Reaction (Severe, Uncoded 10/19/24 09:31) SEVERE N/V HPI Comments Details: 73 YO Female with PMHx Osteoporosis, Hypothyroidism, HTN, HLD who is seen in F/U for Osteoporosis. Was first diagnosed with Osteoporosis in 2017 when her DXA revealed progression from Osteopenia. Was diagnosed with Osteopenia approximately 10 years ago. She is currently being treated with Prolia and has had 5 doses (last 04/05/2022). Has tolerated Prolia well. She underwent a total hip replacement 09/14/2022, and Prolia was delayed due to awaiting integration of hardware. She reports hardware has integrated well. She has never had a broken bone. Has lost 1 inch in height. Is using Calcium Carbonate 600 mg PO BID. She sometimes forgets her second dose of the day. Has 1 serving of dairy daily in the form of cheese. Is taking Vitamin D 2000 IU daily. Has never used any anticoagulant medication or oral glucocorticoids but did have steroid knee and shoulder injections. Denies any antiepileptic use. Does use omeprazole daily for her severe GERD. , did not breastfeed. Menopause at the age 59. Never used HRT. Has dental cleanings q 6 months. Had a dental extraction in early June 2020. Does not exercise. Had bilateral knee replacements January 2020. Does not do resistance training. Mother with severe Osteoporosis was treated with Fosamax and had Osteonecrosis of the jaw. Denies any history of kidney stones. Denies family history of kidney stones. DXA: 03/21/2020 FINDINGS: AP SPINE L1-L4: BMD 1.170 g/cm2, Z-score 1.0, T-score -0.1, normal. LEFT FEMUR, NECK: BMD 0.681 g/cm2, Z-score -1.3, T-score -2.6, osteoporosis. LEFT FEMUR, TOTAL: BMD 0.840 g/cm2, Z-score -0.4, T-score -1.3, osteopenia. Labs: Laboratory Tests 10/02/22 12/04/22 08:54 08:54 Sodium 142 Potassium 4.7 Creatinine 0.98 Estimated GFR 56 Calcium 10.0 Albumin 4.4 TSH 0.52 status post a course of Prolia with a Reclast infusion and continued NTX suppression [facility] Medical History Vitamin D deficiency Osteoporosis Brittle nails Bilateral ankle pain Urinary incontinence, mixed Asthma Hypertension, essential Depression Chronic GERD Lipid disorder Hypothyroid Surgical History History of hip surgery History of surgery on right wrist Hx of tubal ligation Hx of cataract removal with insertion of prosthetic lens History of arthroscopy of left shoulder Hx of repair of right rotator cuff H/O knee surgery Family History Father No problems noted. Mother No problems noted. Social History Housing: House Alcohol intake: current Alcohol intake frequency: a few times a month Patient Tobacco Use Status: Never used Tobacco e-Cigarette/Vaping Use: Never Used Second Hand Smoke Exposure: No service: No Current occupational status: retired Cognitive needs: No Hearing needs: No Vision needs: Yes Physical Exam Vital Signs: Last Vital Signs Pulse 66 10/19/24 09:31 BP 132/62 10/19/24 09:31 Pulse Ox 97 10/19/24 09:31 Oxygen Delivery Method Room Air 10/19/24 09:31 BMI result Body Mass Index 38.9 Assessment & Plan Assessment & Plan (1) Osteoporosis: Code(s): M81.0 - Age-related osteoporosis without current pathological fracture Category: Medical Qualifiers: Osteoporosis type: unspecified Presence of current pathological fracture: unspecified Qualified Code(s): M81.0 - Age-related osteoporosis without current pathological fracture Plan: This 73-year-old white female with history of osteoporosis a negative secondary workup. She completed a course of Prolia and received a Reclast infusion . NTX is suppressed Plan is to should continue with calcium and vitamin-D supplementation. We will repeat DEXA in 3 months Orders: Orders XR DEXA axial skeleton 3 Months M81.0 - Age-related osteoporosis without current pathological fracture Coding Level of Care Code Est Pt Level 3 (64520) Diagnoses Osteoporosis, unspecified osteoporosis type, unspecified pathological fracture presence M81.0 Osteoporosis type: unspecified Presence of current pathological fracture: unspecified
[2024-10-19 09:31] VITALS: BP 132/62; PULSE 66; O2SAT 97; BMI 38.9
== END 2024-10-19 09:44 | disposition home or self-care (01) ==
LOC: HO.ENCR 09:26
PROVIDERS: PCP Internal Medicine; Visit Provider Internal Medicine Endocrinology, Diabetes & Metabolism
DX: M81.0 Age-related osteoporosis without current pathological fracture (principal)
CPT/HCPCS: 99213

== ENCOUNTER → 2024-10-19 09:26 | Outpatient (BNVA) | payer MEDICARE, SELFPAY | PROVIDERS: PCP Internal Medicine; Visit Provider Internal Medicine Endocrinology, Diabetes & Metabolism | DX: M81.0 Age-related osteoporosis without current pathological fracture (principal) | CPT/HCPCS: 99212 ==

== ENCOUNTER 2024-12-29 08:54 | Outpatient (AMB) | payer MEDICARE, SELFPAY ==
[2024-12-29 09:04] VITALS: BP 128/76; PULSE 66; TEMP 37.2; O2SAT 94; BMI 37.4
--- NOTE | 2024-12-29 09:04 | A.OFFPC_ITS ---
Vital Signs 12/29/24 09:04 Height 4 ft 11 in Weight 185 lb BMI 37.4 BP 128/76 Blood Pressure Location Rt brachial Position Sitting Pulse 66 Pulse Source Pulse Oximeter Temp 98.9 F Temp Source Oral Pulse Oximetry (%) 94 Oxygen Delivery Method Room Air Intake Visit Reasons: 4m f/u Allergies tetanus toxoid, adsorbed [Tetanus Toxoid,Adsorbed] Allergy (Severe, Verified 12/29/24 09:05) SEVERE SWELLING amoxicillin [Augmentin] Allergy (Unknown, Verified 12/29/24 09:05) Unknown clavulanic acid [Augmentin] Allergy (Unknown, Verified 12/29/24 09:05) Unknown Tetanus Allergy (Unknown, Uncoded 12/29/24 09:05) swelling Tetanus Immune Globulin Allergy (Unknown, Uncoded 12/29/24 09:05) Unknown From Augmentin Adverse Reaction (Severe, Uncoded 12/29/24 09:05) SEVERE N/V Medication List - Last Reconciled 12/29/24 by Princess Fairchild MD alcohol swabs (Alcohol Pads) 1 pad topical DAILY aspirin 81 mg PO DAILY atenolol 25 mg PO DAILY atorvastatin 40 mg PO DAILY 90 days blood sugar diagnostic (FreeStyle Lite Strips) Check blood sugar once daily as directed blood-glucose meter (FreeStyle Lite Meter kit) Check blood sugar once daily as directed calcium citrate-vitamin D3 315 mg-5 mcg (200 unit) 1 tab PO BID 30 days glipizide ER 2.5 mg PO DAILY hydrochlorothiazide 25 mg PO QAM 90 days lancets (FreeStyle Lancets) Check blood sugar once daily as directed latanoprost 0.005% 1 drp ophthalmic (eye) QPM levothyroxine 100 mcg PO DAILY 90 days metformin ER 500 mg PO DAILY minoxidil-finasteride 5-0.1 % mL topical paroxetine HCl 40 mg PO QAM 90 days timolol maleate 0.5% drps ophthalmic (eye) DAILY Tobacco use date assessed: 12/29/24 Fall risk assessment: 1 Fall in past year Last assessed Fall Risk: 12/29/24 Dental Screening Dental Screen Date: 12/29/24 Did you have a dental visit in the last 12 months?: Yes Did you have a dental problem in the last 6 months where you did not have access to dental care?: No Was dental information given to patient?: Patient has dentist HPI 4m f/u HPI Details History - The patient is a 74-year-old female pr esenting with a three-month follow-up for diabetes management. - Type 2 Diabetes Mellitus: Historically , the patient's hemoglobin A1c level was noted to be 8.8% in August. It has improved to 7.8% by the time of this visit, indicating improvement but still above the target level. The patient experiences diarrhea, attributed to Irritable Bowel Syndrome, but denies further gastrointestinal side effects specifically related to Metformin. - Hypertension: The patient's blood pres sure is recorded at 128/76, demonstr ating effective management. - Osteoporosis: The patient has a sylvester yan appointment with endocrinology to monitor osteoporosis. - Alopecia: The patient uses a topical t reatment as prescribed by dermatology. - Recent Medical Screening: The patient recently had a mammogram and is planning to undergo bone density testing soon. Medical History: - Type 2 Diabetes Mellitus - Hypertension - Hyperlipidemia - Alopecia - Osteoporosis - Irritable Bowel Syndrome Medications: - Atenolol 25 mg for hypertension - Atorvastatin 40 mg for hyperlipidemia - Glipizide 2.5 mg once a day for diabet es - Hydrochlorothiazide 25 mg for hyperten vijaya - Levothyroxine 100 mcg (condition not s pecified in the conversation) - Metformin 500 mg once a day for diabet es - Paroxetine 40 mg (condition not specif ied in the conversation) - Topical treatment from dermatology for alopecia Social History: - The patient reports everything at home is good, with no problems mentioned. Diagnostic Results: - Labs: Hemoglobin A1c was 8.8% in , now 7.8%. Problem List - Type 2 Diabetes Mellitus - Hypertension - Hyperlipidemia - Alopecia - Osteoporosis - Irritable Bowel Syndrome - obesity Patient Instructions - Increase Glipizide to 5 mg per day to further reduce A1c levels. - Finish the current supply by taking tw o tablets of the existing Glipizide dosage per day until it is depleted, then switch to the new prescription. - Return for a follow-up blood test prio r to the next appointment in four months to reassess A1c and other health indicators. - Attend the scheduled endocrinology felisha ointment for osteoporosis and complete the bone density test as planned. Review of Systems - General: No fever no chills - Neurological: No headaches no dizziness - Ear nose throat: No sore throat no hearing difficulty no ear pain - Cardiovascular: No syncope, no chest pain, no palpitations - Gastrointestinal: No nausea vomiting or diarrhea - Endocrine: No polyuria polydipsia no heat intolerance - Genitourinary: No dysuria , no blood in urine Physical Exam General: No acute distress HEENT: No acute findings Neck: Supple Respiratory system: Able to talk in full sentences, no audible wheeze Cardiovascular: S1-S2 regular in rate and rhythm Gastrointestinal: No pain, reports diarrhea due to IBS Extremities: No new findings, no swelling of ankles 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 Mother No problems noted. Social History Housing: House Alcohol intake: current Alcohol intake frequency: a few times a month Patient Tobacco Use Status: Never used Tobacco e-Cigarette/Vaping Use: Never Used Second Hand Smoke Exposure: No service: No Current occupational status: retired Cognitive needs: No Hearing needs: No Vision needs: Yes Questionnaire PHQ-9 Over the last 2 weeks, how often have you been bothered by any of the following problems? 1. Little interest or pleasure in doing things: not at all 2. Feeling down, depressed, or hopeless: not at all 3. Trouble falling or staying asleep, or sleeping too much: nearly every day 4. Feeling tired or having little energy: several days 5. Poor appetite or overeating: not at all 6. Feeling bad about yourself - or that you are a failure or have let yourself or your family down: not at all 7. Trouble concentrating on things, such as reading the newspaper or watching television: not at all 8. Moving or speaking so slowly that other people could have noticed. Or the opposite - being so fidgety or restless that you have been moving around a lot more than usual: not at all 9. Thoughts that you would be better off or of hurting yourself in some way: not at all Total score: 4 Depression Screening Interpretation: Negative Depression Screening Done: Yes 72901 - PHQ-9 Billing: Yes Source: Developed by Drs. Parag Overton, Rabia Clarke, Kennedy Casey and colleagues, with an educational trinidad from [employer]. Thrive Questionnaire Date Thrive assessed: 12/29/24 I am a: Patient What is your living situation today?: I have a steady place to live Within the past 12 months, did the food you bought not last and you didn't have the money to get more?: Never true Within the past 12 months, did you worry whether your food would run out before you got money to buy more?: Never true Do you have trouble paying for medicines?: No Do you have trouble getting transportation to medical appointments?: No Do you have trouble paying your heating and electricity bill?: No Do you have trouble taking care of your child, family member or friend?: No Do you have trouble with day-to-day activities such as bathing, preparing meals, shopping, managing finances, etc.?: No Are you currently unemployed and looking for a job?: No Are you interested in more education?: No Please select the resources that you would like help with: None Currently or been in a relationship where the following occur: I choose not to answer THRIVE Score: 0 AUDIT C Alcohol Use Questionnaire (AUDIT-C) 1. How often do you have a drink containing alcohol?: Monthly or less 2. How many drinks containing alcohol do you have on a typical day when you are drinking?: 1 or 2 3. How often do you have six or more drinks on one occasion?: Never Total Score: 1 Score Reviewed/Action Taken: Yes JILLIAN-7 AMB Questionnaire JILLIAN-7 Date JILLIAN - 7 assessed: 12/29/24 Feeling nervous, anxious, or on edge: 0 = Not at all Not being able to stop or control worryin = Not at all Worrying too much about different things: 0 = Not at all Trouble relaxin = Not at all Being so restless that it is hard to sit still: 0 = Not at all Becoming easily annoyed or irritable: 0 = Not at all Feeling afraid as if something awful might happen: 0 = Not at all Total JILLIAN-7 score (0-4 normal; 5-9 mild; 10-14 moderate; 15-21 severe): 0 Source: Developed by Drs. Parag Overton, Rabia Clarke, Kennedy Casey and colleagues, with an educational trinidad from [employer]. Physical exam (Primary Care) Vital Signs: Last Vital Signs Temp 98.9 F 12/29/24 09:04 Pulse 66 12/29/24 09:04 BP 128/76 12/29/24 09:04 Pulse Ox 94 12/29/24 09:04 Oxygen Delivery Method Room Air 12/29/24 09:04 BMI result Body Mass Index 37.4 Tobacco/Smoking Status: Tobacco use Status Tobacco use date assessed 12/29/24 12/29/24 09:06 Patient Tobacco Use Status Never used Tobacco 12/29/24 09:04 e-Cigarette/Vaping Use Never Used 12/29/24 09:04 PHQ-9: PHQ-9 Score PHQ-9: Total score 4 12/29/24 09:28 Depression Screening Interpretation: Negative Thrive Assessment: Date of Thrive Assessment Date Thrive assessed 12/29/24 12/29/24 09:06 Currently or been in a relationship where the following occur: I choose not to answer Results AMB Hemoglobin A1c AMB Hemoglobin A1c 7.8 % Last Edit by Chacha Paz CMA on 12/29/24 09:20 Results Reviewed Results Reviewed: Laboratory Last Values Hgb A1c (Clinic) 7.8 % (4.0-6.0) H 12/29/24 09:15 Coding Level of Care Code Est Pt Level 4 (97429) Complex EM visit Add On G2211 Diagnoses Diabetes 1.5, managed as type 2 E13.9 Other specified hypothyroidism E03.8 Lipid disorder E78.9 Hypertension, essential I10 Recurrent major depressive disorder, in full remission F33.42 Active/Remission status: in full remission Chronic GERD K21.9 Osteoporosis, unspecified osteoporosis type, unspecified pathological fracture presence M81.0 Osteoporosis type: unspecified Presence of current pathological fracture: unspecified Obesity (BMI 30.0-34.9) E66.9 Nephropathy N28.9 Additional Codes PHQ-9 - 77976 - PHQ-9 Billing: Yes ([id number]) Assessment & Plan Assessment & Plan (1) Diabetes 1.5, managed as type 2: Code(s): E13.9 - Other specified diabetes mellitus without complications Category: Medical (2) Other specified hypothyroidism: Code(s): E03.8 - Other specified hypothyroidism Category: Medical (3) Lipid disorder: Code(s): E78.9 - Disorder of lipoprotein metabolism, unspecified Category: Medical (4) Hypertension, essential: Code(s): I10 - Essential (primary) hypertension Category: Medical (5) Major depression, recurrent: Code(s): F33.9 - Major depressive disorder, recurrent, unspecified Category: Medical Qualifiers: Active/Remission status: in full remission Qualified Code(s): F33.42 - Major depressive disorder, recurrent, in full remission (6) Chronic GERD: Code(s): K21.9 - Gastro-esophageal reflux disease without esophagitis Category: Medical (7) Osteoporosis: Code(s): M81.0 - Age-related osteoporosis without current pathological fracture Category: Medical Qualifiers: Osteoporosis type: unspecified Presence of current pathological fracture: unspecified Qualified Code(s): M81.0 - Age-related osteoporosis without current pathological fracture (8) Obesity (BMI 30.0-34.9): Code(s): E66.9 - Obesity, unspecified Category: Medical (9) Nephropathy: Code(s): N28.9 - Disorder of kidney and ureter, unspecified Category: Medical Plan History - The patient is a 74-year-old female presenting with a three-month follow-up for diabetes management. - Type 2 Diabetes Mellitus: Historically, the patient's hemoglobin A1c level was noted to be 8.8% in August. It has improved to 7.8% by the time of this visit, indicating improvement but still above the target level. The patient experiences diarrhea, attributed to Irritable Bowel Syndrome, but denies further gastrointestinal side effects specifically related to Metformin. - Hypertension: The patient's blood pressure is recorded at 128/76, demonstrating effective management. - Osteoporosis: The patient has a planned appointment with endocrinology to monitor osteoporosis. - Alopecia: The patient uses a topical treatment as prescribed by dermatology. - Recent Medical Screening: The patient recently had a mammogram and is planning to undergo bone density testing soon. Medical History: - Type 2 Diabetes Mellitus - Hypertension - Hyperlipidemia - Alopecia - Osteoporosis - Irritable Bowel Syndrome Medications: - Atenolol 25 mg for hypertension - Atorvastatin 40 mg for hyperlipidemia - Glipizide 2.5 mg once a day for diabetes - Hydrochlorothiazide 25 mg for hypertension - Levothyroxine 100 mcg (condition not specified in the conversation) - Metformin 500 mg once a day for diabetes - Paroxetine 40 mg (condition not specified in the conversation) - Topical treatment from dermatology for alopecia Social History: - The patient reports everything at home is good, with no problems mentioned. Diagnostic Results: - Labs: Hemoglobin A1c was 8.8% in August, now 7.8%. Problem List - Type 2 Diabetes Mellitus - Hypertension - Hyperlipidemia - Alopecia - Osteoporosis - Irritable Bowel Syndrome - obesity Patient Instructions - Increase Glipizide to 5 mg per day to further reduce A1c levels. - Finish the current supply by taking two tablets of the existing Glipizide dosage per day until it is depleted, then switch to the new prescription. - Return for a follow-up blood test prior to the next appointment in four months to reassess A1c and other health indicators. - Attend the scheduled endocrinology appointment for osteoporosis and complete the bone density test as planned. Orders: Orders AMB Hemoglobin A1c Today Z13.9 - Encounter for screening, unspecified Complete Blood Count Auto Diff 3 Months E03.8 - Other specified hypothyroidism, E66.9 - Obesity, unspecified, E78.9 - Disorder of lipoprotein metabolism, unspecified, F33.42 - Major depressive disorder, recurrent, in full remission, I10 - Essential (primary) hypertension, K21.9 - Gastro-esophageal reflux disease without esophagitis, M16.11 - Unilateral primary osteoarthritis, right hip, M81.0 - Age-related osteoporosis without current pathological fracture, N28.9 - Disorder of kidney and ureter, unspecified Lipid Panel 3 Months E03.8 - Other specified hypothyroidism, E66.9 - Obesity, unspecified, E78.9 - Disorder of lipoprotein metabolism, unspecified, F33.42 - Major depressive disorder, recurrent, in full remission, I10 - Essential (primary) hypertension, K21.9 - Gastro-esophageal reflux disease without esophagitis, M16.11 - Unilateral primary osteoarthritis, right hip, M81.0 - Age- related osteoporosis without current pathological fracture, N28.9 - Disorder of kidney and ureter, unspecified Vitamin D 25-OH (D2 and D3) 3 Months E03.8 - Other specified hypothyroidism, E66.9 - Obesity, unspecified, E78.9 - Disorder of lipoprotein metabolism, unspecified, F33.42 - Major depressive disorder, recurrent, in full remission, I10 - Essential (primary) hypertension, K21.9 - Gastro-esophageal reflux disease without esophagitis, M16.11 - Unilateral primary osteoarthritis, right hip, M81.0 - Age-related osteoporosis without current pathological fracture, N28.9 - Disorder of kidney and ureter, unspecified Hemoglobin A1c 3 Months E03.8 - Other specified hypothyroidism, E66.9 - Obesity, unspecified, E78.9 - Disorder of lipoprotein metabolism, unspecified, F33.42 - Major depressive disorder, recurrent, in full remission, I10 - Essential (primary) hypertension, K21.9 - Gastro-esophageal reflux disease without esophagitis, M16.11 - Unilateral primary osteoarthritis, right hip, M81.0 - Age-related osteoporosis without current pathological fracture, N28.9 - Disorder of kidney and ureter, unspecified Comprehensive [place]. Panel Fast 3 Months E03.8 - Other specified hypothyroidism, E66.9 - Obesity, unspecified, E78.9 - Disorder of lipoprotein metabolism, unspecified, F33.42 - Major depressive disorder, recurrent, in full remission, I10 - Essential (primary) hypertension, K21.9 - Gastro-esophageal reflux disease without esophagitis, M16.11 - Unilateral primary osteoarthritis, right hip, M81.0 - Age-related osteoporosis without current pathological fracture, N28.9 - Disorder of kidney and ureter, unspecified TSH reflex Free T4 3 Months E03.8 - Other specified hypothyroidism, E66.9 - Obesity, unspecified, E78.9 - Disorder of lipoprotein metabolism, unspecified, F33.42 - Major depressive disorder, recurrent, in full remission, I10 - Essential (primary) hypertension, K21.9 - Gastro-esophageal reflux disease without esophagitis, M16.11 - Unilateral primary osteoarthritis, right hip, M81.0 - Age-related osteoporosis without current pathological fracture, N28.9 - Disorder of kidney and ureter, unspecified Microalbumin, Random (w Creat) 3 Months E03.8 - Other specified hypothyroidism, E66.9 - Obesity, unspecified, E78.9 - Disorder of lipoprotein metabolism, unspecified, F33.42 - Major depressive disorder, recurrent, in full remission, I10 - Essential (primary) hypertension, K21.9 - Gastro-esophageal reflux disease without esophagitis, M16.11 - Unilateral primary osteoarthritis, right hip, M81.0 - Age-related osteoporosis without current pathological fracture, N28.9 - Disorder of kidney and ureter, unspecified
--- OUTSIDE RECORDS SUMMARY | 2024-12-29 09:33 | XMS_ITS | Patient Health Record ---
Author Organization [employer] [facility] Address [address] [place] [id number] Care Team Providers Care Braiding Operator Name Role Phone PALLAVI FAN Primary Care Provider Dee Pro Unavailable [phone] Allergies Allergen (clinical drug ingredient) Drug/Non Drug [...] Status W/U Status Risk Notes Problem Hypothyroidism (09891797) Unspecified hypothyroidism (244.9) Active confirmed Problem Pure hypercholesterolemia (813781336) Pure hypercholesterolemia (272.0) Active confirmed Problem Depressive disorder (95348414) Depressive disorder, not elsewhere classified (311) Active confirmed Problem 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) Active confirmed Problem Hypertension (18732696) Hypertension (401.9) Active confirmed Problem Mixed incontinence (635710789) Mixed incontinence (N39.46) Active confirmed Problem Age-related osteoporosis (703125612) Age-related osteoporosis without current pathological fracture (M81.0) Active confirmed Problem Glaucoma (39023875) Unspecified glaucoma (H40.9) Active confirmed Problem Old myocardial infarction (1701137) Old myocardial infarction (I25.2) Active confirmed Problem Chronic kidney disease stage 2 (030896073) Chronic kidney disease, stage 2 (mild) (N18.2) Active confirmed Problem Polyp of corpus uter i (23053415) Polyp of corpus uteri (N84.0) Active confirmed Problem Body mass index 30.0 0 to 34.99 (471474154091360) Body mass index [BMI] 33.0-33.9, adult (Z68.33) Active confirmed Plan Of Treatment Pending Test Test Name Order Date Ultrasound : Pelvic 11/15/2015 [facility] Digital Mammo Screening 07/19/2021 Insurance Providers Payer Name Payer Address Payer Phone Subscriber Number Group Number Insured Name Patient Relationship to Insured Coverage Start Date Coverage End Date MEDICARE [address] CASEY JOHNSON [id number] DAWOOD ROSALES Self - patient is the insured MEDEX [address] [place] [address] [id number] DAWOOD ROSALES Self - patient is [...]
== END 2024-12-29 09:29 | disposition home or self-care (01) ==
LOC: HO.HMCC 08:54
PROVIDERS: PCP Internal Medicine; Visit Provider Internal Medicine
DX: E13.9 Other specified diabetes mellitus without complications (principal); E03.8 Other specified hypothyroidism; E66.9 Obesity, unspecified; Z68.37 Body mass index [BMI] 37.0-37.9, adult; E78.9 Disorder of lipoprotein metabolism, unspecified; I10 Essential (primary) hypertension; F33.42 Major depressive disorder, recurrent, in full remission; K21.9 Gastro-esophageal reflux disease without esophagitis; M81.0 Age-related osteoporosis without current pathological fracture; N28.9 Disorder of kidney and ureter, unspecified

== ENCOUNTER → 2024-12-29 08:54 | Outpatient (BNVA) | payer MEDICARE, SELFPAY | PROVIDERS: PCP Internal Medicine; Visit Provider Internal Medicine | DX: E13.9 Other specified diabetes mellitus without complications (principal); E03.8 Other specified hypothyroidism; E78.9 Disorder of lipoprotein metabolism, unspecified; I10 Essential (primary) hypertension; F33.42 Major depressive disorder, recurrent, in full remission; K21.9 Gastro-esophageal reflux disease without esophagitis; M81.0 Age-related osteoporosis without current pathological fracture; E66.9 Obesity, unspecified; Z68.37 Body mass index [BMI] 37.0-37.9, adult; N28.9 Disorder of kidney and ureter, unspecified; Z71.3 Dietary counseling and surveillance | CPT/HCPCS: 83036; 96127; 99212 ==

== ENCOUNTER → 2025-01-01 10:00 | Outpatient (BNV) | payer MEDICARE, SELFPAY | PROVIDERS: PCP Internal Medicine; Visit Provider Radiology Diagnostic Radiology | DX: E28.39 Other primary ovarian failure (principal) | CPT/HCPCS: 77080 ==

== ENCOUNTER 2025-01-01 10:06 | Outpatient (REF) | payer MEDICARE, SELFPAY ==
--- NOTE | ~2025-01-01 | MM_ITS ---
EXAMINATION: DXA BONE DENSITY AXIAL HISTORY: OSTEOPOROSIS TECHNIQUE: [employer] Dual energy absorptiometry (DEXA) of the lumbar spine, total left hip, and femoral neck was performed. COMPARISON: Comparison is made with the prior examination dated 12/14/2022. FINDINGS: The bone mineral density of the lumbar spine is 1.248, corresponding to a T-score of 0.6, and a Z-score of 1.6. This is indicative of normal bone mineral density. This represents a BMD change of 6.7% compared to the prior exam. This is statistically significant. The bone mineral density of the left total hip is 0.890, corresponding to a T-score of -0.9, and a Z-score of 0.2. This is indicative of normal bone mineral density. This represents a BMD change of 6.0% compared to the prior exam. This is statistically significant. The bone mineral density of the left femoral neck is 0.702, corresponding to a T-score of -2.4, and a Z-score of -1.0. This is indicative of osteopenia. This represents a BMD change of 1.0% compared to the prior exam. FRACTURE RISK: The FRAX index suggests a ten year probability of major osteoporotic fracture of 22.6%, and of hip fracture 10.5%. MM/XR DEXA axial skeleton IMPRESSION: Based on bone mineral density, and according to World Health Organization (WHO) criteria, the diagnosis is consistent with osteopenia. All bone density values are in grams per centimeter squared (g/cm2). Statistically, 68% of repeat scans fall within 1 SD (+/- 0.010 g/cm2 for AP spine L1-L4) and 1 SD (+/- 0.012 g/cm2 for femur total) FRAX is a trademark of the [employer]'s [place] for Metabolic Bone Disease, a World Health Organization (WHO) Collaborating Center. Electronically signed by: Parag Guzmán MD 01/01/2025 10:42 AM EDT
--- OUTSIDE RECORDS SUMMARY | 2025-01-01 10:49 | XMS_ITS | Patient Health Record ---
Author Organization [employer] [facility] [facility] Address [address] [place] [id number] Care Team Providers Care Recreation Manager Name Role Phone PALLAVI FAN Primary Care Provider Dee Pro Unavailable [phone] Allergies Allergen (clinical drug ingredient) Drug/Non Drug [...] Status W/U Status Risk Notes Problem Hypothyroidism (60402146) Unspecified hypothyroidism (244.9) Active confirmed Problem Pure hypercholesterolemia (536806799) Pure hypercholesterolemia (272.0) Active confirmed Problem Depressive disorder (40845502) Depressive disorder, not elsewhere classified (311) Active confirmed Problem Inflammatory polyarthropathy (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) Active confirmed Problem Hypertension (35100034) Hypertension (401.9) Active confirmed Problem Mixed incontinence (730390198) Mixed incontinence (N39.46) Active confirmed Problem Age-related osteoporosis (279826480) Age-related osteoporosis without current pathological fracture (M81.0) Active confirmed Problem Glaucoma (46620720) Unspecified glaucoma (H40.9) Active confirmed Problem Old myocardial infarction (0905473) Old myocardial infarction (I25.2) Active confirmed Problem Chronic kidney disease stage 2 (709652790) Chronic kidney disease, stage 2 (mild) (N18.2) Active confirmed Problem Polyp of corpus uter i (81643269) Polyp of corpus uteri (N84.0) Active confirmed Problem Body mass index 30.0 0 to 34.99 (916427671189846) Body mass index [BMI] 33.0-33.9, adult (Z68.33) Active confirmed Plan Of Treatment Pending Test Test Name Order Date Ultrasound : Pelvic 11/15/2015 MM Digital Mammo Screening 07/19/2021 Insurance Providers Payer Name Payer Address Payer Phone Subscriber Number Group Number Insured Name Patient Relationship to Insured Coverage Start Date Coverage End Date MEDICARE [address] CASEY JOHNSON [id number] DAWOOD ROSALES Self - patient is the insured MEDEX [address] [place] [address] [id number] DAWOOD ROSALES Self - patient is [...]
== END 2025-01-01 10:07 | disposition home or self-care (01) ==
LOC: HO.MAMMO 10:06
PROVIDERS: PCP Internal Medicine; Visit Provider Internal Medicine Endocrinology, Diabetes & Metabolism
DX: M81.0 Age-related osteoporosis without current pathological fracture (principal)
CPT/HCPCS: 77080

== ENCOUNTER 2025-03-17 11:41 | Outpatient (REF) | payer MEDICARE, SELFPAY ==
--- OUTSIDE RECORDS SUMMARY | 2025-03-17 12:59 | XMS_ITS | Clinical Summary ---
Author Organization [facility] Address [address] [facility] [address] [place] [address] Phone Care Team Providers Care Fine Grader Name Role Phone Princess Fairchild MD Primary Care Provider [phone] Allergies Active Allergy Reactions Criticality Noted Date [...] time each day 45 tablet 3 4 Active glipiZIDE-metFO RMIN (METAGLIP) 2.5-500 MG per [...] Visit [facility] [address] [address] Camilla Holbrook ARNP [address] [address] Health Maintenance Due Date Last Done Comments Breast Cancer Screening 1950 Pneumococcal Vaccine: 50+ Ye ars (1 of 2 - PCV) 1971 Colorectal Cancer Screening: Annual FOBT 2001 Colorectal Cancer Screening: Colonoscopy 2001 Colorectal Cancer Screening: Sigmoidoscopy 2001 Influenza Vaccine (#1) 2025 Hepatitis B Vaccine Aged Out No longe r eligible based on patient's age to complete this topic Insurance Medicare [facility] Medicare [facility] Care Teams Fine Grader Relationship Specialty Start Date End Date Princess Fairchild MD [address] [place] [id number] PCP - General Internal Medicine 05/04/21
--- OUTSIDE RECORDS SUMMARY | 2025-03-17 12:59 | XMS_ITS | Patient Health Record ---
Author Organization [facility] Address [address] [facility] [address] [place] [address] Care Team Providers Care Hacksaw Inspector Name Role Phone PALLAVI FAN Primary Care Provider Dee Pro Unavailable [phone] Allergies Allergen (clinical drug ingredient) Drug/Non Drug [...] tablet with a meal Orally Once a day; Duration: 30 day(s) Active PARoxetine HCl 40 MG 1 tablet in the morning Orally Once a day Active Albuterol PRN Active Diovan HCT 80-12.5 MG 1 tablet Orally On ce a day Not-Taking Atorvastatin Calcium 40 MG 1 tablet Oral ly Once a day; Duration: 30 day(s) Active hydroCHLOROthiazide 12.5 MG 1 tablet in the morning Orally Once a day; Duration: 30 day(s) Active Prolia 60 MG/ML as directed Subcutaneous Active Levothyroxine Sodium 75 MCG 1 tablet in the morning on an empty stomach Orally Once a day; Duration: 30 day(s) Active Pravastatin Sodium 60 1 tablet Orally On ce a day Active Latanoprost 0.005 % 1 drop into affected eye in the evening Ophthalmic Once a day Active Timolol Maleate 0.5 % 1 drop into affect ed eye Ophthalmic Once a day Active Problems Problem Type SNOMED Code ICD Code Onset Dates Problem Status W/U Status Risk Notes Problem Hypothyroidism (39249075) Unspecified hypothyroidism (244.9) Active confirmed Problem Pure hypercholesterolemia (816220119) Pure hypercholesterolemia (272.0) Active confirmed Problem Depressive disorder (20503511) Depressive disorder, not elsewhere classified (311) Active confirmed Problem 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) Active confirmed Problem Hypertension (86902974) Hypertension (401.9) Active confirmed Problem Mixed incontinence (782222717) Mixed incontinence (N39.46) Active confirmed Problem Age-related osteoporosis (350721548) Age-related osteoporosis without current pathological fracture (M81.0) Active confirmed Problem Glaucoma (55466740) Unspecified glaucoma (H40.9) Active confirmed Problem Old myocardial infarction (0508119) Old myocardial infarction (I25.2) Active confirmed Problem Chronic kidney disease stage 2 (535309777) Chronic kidney disease, stage 2 (mild) (N18.2) Active confirmed Problem Polyp of corpus uter i (53468499) Polyp of corpus uteri (N84.0) Active confirmed Problem Body mass index 30.0 0 to 34.99 (260945658943415) Body mass index [BMI] 33.0-33.9, adult (Z68.33) Active confirmed Plan Of Treatment Pending Test Test Name Order Date Ultrasound : Pelvic 11/15/2015 MM Digital Mammo Screening 07/19/2021 Insurance Providers Payer Name Payer Address Payer Phone Subscriber Number Group Number Insured Name Patient Relationship to Insured Coverage Start Date Coverage End Date MEDICARE [address] CASEY JOHNSON [id number] [phone] [id number] DAWOOD ROSALES Self - patient is the insured MEDEX [address] [place] [address] [id number] DAWOOD ROSALES Self - patient is [...]
[2025-03-17 15:51] LABS: Cholesterol 161 mg/dL (<200); HDL Cholesterol 31 mg/dL (>40); Triglycerides 138 mg/dL (<150)
== END 2025-03-17 11:42 | disposition home or self-care (01) ==
LOC: HO.HMGCLDS 11:41
PROVIDERS: PCP Internal Medicine; Visit Provider Internal Medicine
DX: I10 Essential (primary) hypertension (principal); E78.9 Disorder of lipoprotein metabolism, unspecified; N39.46 Mixed incontinence; M81.0 Age-related osteoporosis without current pathological fracture; E55.9 Vitamin D deficiency, unspecified; E66.9 Obesity, unspecified; N28.9 Disorder of kidney and ureter, unspecified; F33.42 Major depressive disorder, recurrent, in full remission; R73.01 Impaired fasting glucose; R47.89 Other speech disturbances
CPT/HCPCS: 36415; 80061

== ENCOUNTER 2025-03-31 08:21 | Outpatient (AMB) | payer MEDICARE, SELFPAY ==
--- NOTE | 2025-03-31 08:25 | MHC.OFFVIS ---
Vital Signs 03/31/25 08:27 Height 4 ft 10.9 in Weight 181 lb 7.047 oz BMI 36.8 BP 132/74 Blood Pressure Location Rt brachial Position Sitting Pulse 60 Pulse Source Pulse Oximeter Pulse Oximetry (%) 95 Oxygen Delivery Method Room Air Intake Visit Reasons: Osteoporosis Intake Note: Patient present today for Osteoporosis follow up, last DEXA was done on 01/01/2025 at [facility]. 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 Accompanied by: Self / Same As Patient Allergies tetanus toxoid, adsorbed (Tetanus Toxoid,Adsorbed) Allergy (Severe, Verified 03/31/25 08:27) SEVERE SWELLING amoxicillin (Augmentin) Allergy (Unknown, Verified 03/31/25 08:27) Unknown clavulanic acid (Augmentin) Allergy (Unknown, Verified 03/31/25 08:27) Unknown Tetanus Allergy (Unknown, Uncoded 03/31/25 08:27) swelling Tetanus Immune Globulin Allergy (Unknown, Uncoded 03/31/25 08:27) Unknown From Augmentin Adverse Reaction (Severe, Uncoded 03/31/25 08:27) SEVERE N/V HPI Comments Details: 74 YO Female with PMHx Osteoporosis, Hypothyroidism, HTN, HLD who is seen in F/U for Osteoporosis. Was first diagnosed with Osteoporosis in 2018 when her DXA revealed progression from Osteopenia. Was diagnosed with Osteopenia approximately 10 years ago. She is currently being treated with Prolia and has had 5 doses (last 04/05/2022). Has tolerated Prolia well. She underwent a total hip replacement 09/14/2022, and Prolia was delayed due to awaiting integration of hardware. She reports hardware has integrated well. She has never had a broken bone. Has lost 1 inch in height. Is using Calcium Carbonate 600 mg PO BID. She sometimes forgets her second dose of the day. Has 1 serving of dairy daily in the form of cheese. Is taking Vitamin D 2000 IU daily. Has never used any anticoagulant medication or oral glucocorticoids but did have steroid knee and shoulder injections. Denies any antiepileptic use. Does use omeprazole daily for her severe GERD. , did not breastfeed. Menopause at the age 59. Never used HRT. Has dental cleanings q 6 months. Had a dental extraction in early June 2020. Does not exercise. Had bilateral knee replacements January 2020. Does not do resistance training. Mother with severe Osteoporosis was treated with Fosamax and had Osteonecrosis of the jaw. Denies any history of kidney stones. Denies family history of kidney stones. DXA: 03/21/2020 FINDINGS: AP SPINE L1-L4: BMD 1.170 g/cm2, Z-score 1.0, T-score -0.1, normal. LEFT FEMUR, NECK: BMD 0.681 g/cm2, Z-score -1.3, T-score -2.6, osteoporosis. LEFT FEMUR, TOTAL: BMD 0.840 g/cm2, Z-score -0.4, T-score -1.3, osteopenia. Labs: Laboratory Tests 10/02/22 12/04/22 08:54 08:54 Sodium 142 Potassium 4.7 Creatinine 0.98 Estimated GFR 56 Calcium 10.0 Albumin 4.4 TSH 0.52 status post a course of Prolia with a Reclast infusion and continued NTX suppression The patient is a 74-year-old female presenting with osteoporosis management and monitoring. The patient has been receiving treatment for osteoporosis, initially with Prolia, followed by Reclast to prevent rebound effects. The treatment plan includes monitoring urine NTX levels and bone density to assess the effectiveness and stability of the treatment. The patient's urine NTX levels were suppressed seven months ago, and recent bone density tests indicate stability with no loss of bone density. The patient continues to take calcium and vitamin D supplements and reports no fractures. [facility] Medical History Vitamin D deficiency Osteoporosis Brittle nails Bilateral ankle pain Urinary incontinence, mixed Asthma Hypertension, essential Depression Chronic GERD Lipid disorder Hypothyroid Surgical History History of hip surgery History of surgery on right wrist Hx of tubal ligation Hx of cataract removal with insertion of prosthetic lens History of arthroscopy of left shoulder Hx of repair of right rotator cuff H/O knee surgery Family History Father No problems noted. Mother No problems noted. Social History Housing: House Alcohol intake: current Alcohol intake frequency: a few times a month Patient Tobacco Use Status: Never used Tobacco e-Cigarette/Vaping Use: Never Used Second Hand Smoke Exposure: No service: No Current occupational status: retired Cognitive needs: No Hearing needs: No Vision needs: Yes Physical Exam Vital Signs: Last Vital Signs Pulse 60 03/31/25 08:27 BP 132/74 03/31/25 08:27 Pulse Ox 95 03/31/25 08:27 Oxygen Delivery Method Room Air 03/31/25 08:27 BMI result Body Mass Index 36.8 Assessment & Plan Assessment & Plan (1) Osteoporosis: Code(s): M81.0 - Age-related osteoporosis without current pathological fracture Category: Medical Qualifiers: Osteoporosis type: unspecified Presence of current pathological fracture: unspecified Qualified Code(s): M81.0 - Age-related osteoporosis without current pathological fracture Plan: This 73-year-old white female with history of osteoporosis a negative secondary workup. She completed a course of Prolia and received a Reclast infusion . NTX is suppressed. Recent DEXA showed stability of bone density Plan is to should continue with calcium and vitamin-D supplementation. At this point, patient returned to the care of her primary care provider who can recheck a bone density 2 years time. If this a significant decline of the bone density into the osteoporotic range or the presence of a fracture, the patient can be returned back to endocrinology for further discussion of treatment options 1. Osteoporosis The patient is being monitored for osteoporosis with a treatment plan that includes Reclast following Prolia to prevent rebound effects. The plan involves regular monitoring and bone density to ensure treatment efficacy and stability. The patient is advised to continue calcium and vitamin D supplementation and to return for follow-up if there are any changes in bone density or fractures. I discussed with the patient the importance of monitoring bone density and urine NTX levels to prevent rebound effects following Prolia treatment. We reviewed the stability of her bone density and the suppression of urine NTX levels, indicating effective management of her osteoporosis. I advised her to continue with calcium and vitamin D supplementation and to follow up if there are any changes in her condition. - Continue taking calcium and vitamin D supplements as prescribed. - Monitor for any changes in bone density or fractures and report them promptly. - The patient had an opportunity to ask questions regarding treatment plan. The patient expressed understanding and agreement with the above treatment plan. Patient was informed and verbally consented to the use of an ambient scribe for clinic note documentation during this visit. Coding Level of Care Code Est Pt Level 3 (75271) Diagnoses Osteoporosis, unspecified osteoporosis type, unspecified pathological fracture presence M81.0 Osteoporosis type: unspecified Presence of current pathological fracture: unspecified
[2025-03-31 08:27] VITALS: BP 132/74; PULSE 60; O2SAT 95; BMI 36.8
--- OUTSIDE RECORDS SUMMARY | 2025-03-31 08:48 | XMS_ITS | Patient Health Record ---
Author Organization [facility] Address [address] [place] [address] [address] [place] [address] Care Team Providers Care Fern Cutter Name Role Phone PALLAVI FAN Primary Care Provider Dee Pro Unavailable [phone] Allergies Allergen (clinical drug ingredient) Drug/Non Drug [...] Status W/U Status Risk Notes Problem Hypothyroidism (12908393) Unspecified hypothyroidism (244.9) Active confirmed Problem Pure hypercholesterolemia (015089830) Pure hypercholesterolemia (272.0) Active confirmed Problem Depressive disorder (78370493) Depressive disorder, not elsewhere classified (311) Active confirmed Problem Inflammatory polyarthropathy (148352913) Other specified inflammatory polyarthropathies (714.89) Active confirmed Problem Hypertension (35740139) Hypertension (401.9) Active confirmed Problem Mixed incontinence (047356658) Mixed incontinence (N39.46) Active confirmed Problem Age-related osteoporosis (767172730) Age-related osteoporosis without current pathological fracture (M81.0) Active confirmed Problem Glaucoma (18704244) Unspecified glaucoma (H40.9) Active confirmed Problem Old myocardial infarction (8704449) Old myocardial infarction (I25.2) Active confirmed Problem Chronic kidney disease stage 2 (040383856) Chronic kidney disease, stage 2 (mild) (N18.2) Active confirmed Problem Polyp of corpus uter i (73412482) Polyp of corpus uteri (N84.0) Active confirmed Problem Body mass index 30.0 0 to 34.99 (196755133155338) Body mass index [BMI] 33.0-33.9, adult (Z68.33) Active confirmed Plan Of Treatment Pending Test Test Name Order Date Ultrasound : Pelvic 11/15/2015 MM Digital Mammo Screening 07/19/2021 Insurance Providers Payer Name Payer Address Payer Phone Subscriber Number Group Number Insured Name Patient Relationship to Insured Coverage Start Date Coverage End Date MEDICARE [address] CASEY JOHNSON [id number] DAWOOD ROSALES Self - patient is the insured MEDEX [address] [place] [address] [id number] DAWOOD ROSALES Self - patient is [...]
--- OUTSIDE RECORDS SUMMARY | 2025-03-31 08:49 | XMS_ITS | Clinical Summary ---
Author Organization [facility] Address [address] [facility] [address] [place] [address] Phone Care Team Providers Care Assurance Engineer Name Role Phone Princess Fairchild MD Primary Care Provider [phone] Allergies Active Allergy Reactions Criticality Noted Date [...] Visit [facility] [address] [address] Camilla Holbrook ARNP [address] [address] Health Maintenance Due Date Last Done Comments Breast Cancer Screening 1950 Pneumococcal Vaccine: 50+ Ye ars (1 of 2 - PCV) 1971 Colorectal Cancer Screening: Annual FOBT 2001 Colorectal Cancer Screening: Colonoscopy 2001 Colorectal Cancer Screening: Sigmoidoscopy 2001 Influenza Vaccine (#1) 2025 Hepatitis B Vaccine Aged Out No longe r eligible based on patient's age to complete this topic Insurance Medicare [facility] Medicare [facility] Care Teams Assurance Engineer Relationship Specialty Start Date End Date Princess Fairchild MD [address] [place] [id number] PCP - General Internal Medicine 05/04/21
== END 2025-03-31 08:53 | disposition home or self-care (01) ==
LOC: HO.ENCR 08:23
PROVIDERS: PCP Internal Medicine; Visit Provider Internal Medicine Endocrinology, Diabetes & Metabolism
DX: M81.0 Age-related osteoporosis without current pathological fracture (principal)
CPT/HCPCS: 99213

== ENCOUNTER → 2025-03-31 08:21 | Outpatient (BNVA) | payer MEDICARE, SELFPAY | PROVIDERS: PCP Internal Medicine; Visit Provider Internal Medicine Endocrinology, Diabetes & Metabolism | DX: M81.0 Age-related osteoporosis without current pathological fracture (principal) | CPT/HCPCS: 99212 ==

== ENCOUNTER 2025-05-04 09:54 | Outpatient (REF) | payer MEDICARE, SELFPAY ==
[2025-05-04 13:28] LABS: MANUAL DIFF FLAG NO
[2025-05-04 13:37] LABS: Hematocrit 37.6 % (37.0-47.0); Hemoglobin 11.8 g/dl (12.0-16.0); Imm Gran Abs Auto 0.01 X10*3/uL (0.00-0.03); Imm Gran Pct Auto 0.2 % (0.0-0.4); Lymphocytes Absolute Auto 1.5 X10*3/uL (1.2-4.9); Mean Corpuscular HGB Conc 31.4 g/dl (31.0-35.0); Mean Corpuscular Hemoglobin 26.4 pg (27.0-33.0); Mean Corpuscular Volume 84.1 fL (80.0-98.0); NRBC Abs Auto 0.000 X10*3/uL (0.0-0.012); NRBC Pct Auto 0.0 /100WBC (0.0-0.2); Platelet Count 301 X10*3/uL (160-400); Red Blood Count 4.47 X10*6/uL (4.20-5.50); White Blood Count 5.3 X10*3/uL (4.8-10.8)
[2025-05-04 13:53] LABS: Alanine Aminotransferase 28 U/L (0-31); Albumin Level 4.3 g/dL (3.5-5.0); Alkaline Phosphatase 87 U/L (39-117); Anion Gap 13 (12-20); Aspartate Amino Transferase 35 U/L (5-31); Blood Urea Nitrogen 17 mg/dL (9-16); Calcium 9.3 mg/dL (8.4-10.2); Carbon Dioxide 29 mmol/L (22-29); Chloride 104 mmol/L (96-108); Cholesterol 166 mg/dL (<200); Estimated Glomerular Filt Rate > 60; HDL Cholesterol 34 mg/dL (>40); Potassium 3.3 mmol/L (3.3-5.1); Sodium 143 mmol/L (135-145); Total Protein 7.5 g/dL (6.5-8.0); Triglycerides 167 mg/dL (<150)
[2025-05-04 13:57] LABS: Total Hemoglobin (HGBA1C) 3129.0153 umol/L
[2025-05-04 14:45] LABS: Free T4 (Free Thyroxine) 1.23 ng/dL (0.71-1.85); Microalbum/Creatinine Ratio Ur 35.6 ug/mg cr (<30)
[2025-05-09 15:38] LABS: Vitamin D 25-OH, D2 6 ng/mL; Vitamin D 25-OH, D3 32 ng/mL; Vitamin D 25-OH, Total 38 ng/mL (30-100)
== END 2025-05-04 09:55 | disposition home or self-care (01) ==
LOC: HO.HMGCLDS 09:54
PROVIDERS: PCP Internal Medicine; Visit Provider Internal Medicine
DX: E03.8 Other specified hypothyroidism (principal); F33.42 Major depressive disorder, recurrent, in full remission; M16.11 Unilateral primary osteoarthritis, right hip; N28.9 Disorder of kidney and ureter, unspecified; M81.0 Age-related osteoporosis without current pathological fracture; I10 Essential (primary) hypertension; E78.9 Disorder of lipoprotein metabolism, unspecified; K21.9 Gastro-esophageal reflux disease without esophagitis; E66.9 Obesity, unspecified; T78.41XA Arthus phenomenon, initial encounter; M54.50 Low back pain, unspecified; M67.442 Ganglion, left hand; E13.9 Other specified diabetes mellitus without complications; E55.9 Vitamin D deficiency, unspecified; Z68.36 Body mass index [BMI] 36.0-36.9, adult; Z79.82 Long term (current) use of aspirin; Z79.84 Long term (current) use of oral hypoglycemic drugs; Z79.890 Hormone replacement therapy; Z79.899 Other long term (current) drug therapy
CPT/HCPCS: 36415; 80053; 80061; 82043; 82306; 82570; 83036; 84439; 84443; 85025; 96127; 99212

== ENCOUNTER 2025-05-04 09:54 | Outpatient (AMB) | payer MEDICARE, SELFPAY ==
[2025-05-04 09:56] VITALS: BP 130/74; PULSE 62; O2SAT 96; BMI 36.6
--- NOTE | 2025-05-04 09:56 | MHC.PC.OV ---
Vital Signs 05/04/25 09:56 Height 4 ft 11 in Weight 181 lb BMI 36.6 BP 130/74 Blood Pressure Location Lt brachial Position Sitting Pulse 62 Pulse Source Pulse Oximeter Pulse Oximetry (%) 96 Intake Visit Reasons: 4 months f/up Allergies tetanus toxoid, adsorbed (Tetanus Toxoid,Adsorbed) Allergy (Severe, Verified 05/04/25 09:57) SEVERE SWELLING amoxicillin (Augmentin) Allergy (Unknown, Verified 05/04/25 09:57) Unknown clavulanic acid (Augmentin) Allergy (Unknown, Verified 05/04/25 09:57) Unknown Tetanus Allergy (Unknown, Uncoded 03/31/25 08:27) swelling Tetanus Immune Globulin Allergy (Unknown, Uncoded 03/31/25 08:27) Unknown From Augmentin Adverse Reaction (Severe, Uncoded 03/31/25 08:27) SEVERE N/V Medication List - Last Reconciled 05/04/25 by Princess Fairchild MD alcohol swabs (Alcohol Pads) 1 pad topical DAILY aspirin 81 mg PO DAILY atenolol 25 mg PO DAILY atorvastatin 40 mg PO DAILY 90 days blood sugar diagnostic (FreeStyle Lite Strips) Check blood sugar once daily as directed blood-glucose meter (FreeStyle Lite Meter kit) Check blood sugar once daily as directed calcium citrate-vitamin D3 315 mg-5 mcg (200 unit) 1 tab PO BID 30 days glipizide ER 2.5 mg PO BID 90 days hydrochlorothiazide 25 mg PO QAM 90 days lancets (FreeStyle Lancets) Check blood sugar once daily as directed latanoprost 0.005% 1 drp ophthalmic (eye) QPM levothyroxine 100 mcg PO DAILY 90 days metformin ER 500 mg PO DAILY minoxidil-finasteride 5-0.1 % mL topical paroxetine HCl 40 mg PO QAM 90 days timolol maleate 0.5% drps ophthalmic (eye) DAILY Tobacco use date assessed: 12/29/24 Fall risk assessment: No Falls in past year Last assessed Fall Risk: 05/04/25 Dental Screening Dental Screen Date: 12/29/24 HPI 4 months f/up HPI Details injection related mucle lump History The patient is a 74-year-old female presenting with back pain, a lump on the hand, and a skin reaction after a flu vaccine left upper arm Patient has a history of hypertension, lipid disorder, diabetes, hypothyroidism, anxiety and depression and obesity Back pain: - The patient reports ongoing back pain, particularly affecting the lumbar spine and sacroiliac joint. - The pain has been significantly associated with arthritis, limiting the patient's ability to stand for extended periods. - The discomfort began prior to an x-ray in August that revealed no acute findings but indicated extensive arthritis. - The pain is alleviated by sitting and is exacerbated by standing. Lump on hand: - The patient reports a lump on her hand, initially noticed a few months ago, which has since increased in size. - The patient attempted monique, which may have aggravated the condition. - The lump is identified as a cyst that is movable and possibly fluid-filled. Skin reaction at vaccination site: - The patient experienced a reaction to a flu shot administered in February. - Manifestations include redness and swelling at the injection site,. . Social History: - Enjoys playing on the computer - Has been using a walking pad for exercise, although with recent inconsistency Problem List - Back pain secondary to arthritis - Cyst on the hand close to the base of thumb left - Skin reaction post-vaccination most likely Arthus reaction - Type 2 Diabetes Mellitus due to elevated A1c levels - hypertension - lipid disorder - hypothyroidism Diagnostic results - X-ray of the lumbar spine (August): No acute findings, presence of arthritis - A1c (December): 7.8 - Kidney function (August): Within normal limits Plan - Recommend the use of a back support belt to alleviate back pain associated with the arthritis. - Consider referral to a shipyard painter apprentice for more comprehensive management due to inadequate relief from Tylenol alone. - Suggest taking Aleve intermittently as it is not contraindicated by current kidney function. Which are within normal limit - Encourage compliance with diabetes medication for glycemic control given the A1c of 7.8. - Advise blood work for a comprehensive evaluation. - For the cyst: Recommend the application of an Caesar bandage around the hand to promote reabsorption of the fluid. Consider referral to an orthopedic surgeon referral placed - Examine the persistent post-vaccination skin reaction; prednisone 20 mg once a day for 5 days sent patient is to be evaluated again in 7 days - Encourage consistent use of the walking pad to maintain physical activity. Regular follow up in 3 months Review of Systems General: No fever no chills neurological: No headaches no dizziness ear nose throat: No sore throat no hearing difficulty no ear pain cardiovascular: No syncope, no chest pain, no palpitations gastrointestinal: No nausea vomiting or diarrhea endocrine: No polyuria polydipsia no heat intolerance genitourinary: No dysuria skin: No new complaints Physical Exam general: No acute distress HEENT: No acute findings neck: Supple respiratory system: Able to talk in full sentences, no audible wheeze no stridor cardiovascular: S1-S2 RRR gastrointestinal: No pain extremities: Bilateral sacroiliac joint inflammation, hard nodular swelling left deltoid after flu vaccine with some redness and tenderness 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 Mother No problems noted. Social History Housing: House Alcohol intake: current Alcohol intake frequency: a few times a month Patient Tobacco Use Status: Never used Tobacco e-Cigarette/Vaping Use: Never Used Second Hand Smoke Exposure: No service: No Current occupational status: retired Cognitive needs: No Hearing needs: No Vision needs: Yes Questionnaire PHQ-9 Over the last 2 weeks, how often have you been bothered by any of the following problems? 1. Little interest or pleasure in doing things: not at all 2. Feeling down, depressed, or hopeless: not at all 3. Trouble falling or staying asleep, or sleeping too much: nearly every day 4. Feeling tired or having little energy: several days 5. Poor appetite or overeating: not at all 6. Feeling bad about yourself - or that you are a failure or have let yourself or your family down: not at all 7. Trouble concentrating on things, such as reading the newspaper or watching television: not at all 8. Moving or speaking so slowly that other people could have noticed. Or the opposite - being so fidgety or restless that you have been moving around a lot more than usual: not at all 9. Thoughts that you would be better off or of hurting yourself in some way: not at all Total score: 4 Depression Screening Interpretation: Negative Depression Screening Done: Yes 48097 - PHQ-9 Billing: Yes Source: Developed by Drs. Parag Overton, Rabia Clarke, Kennedy Casey and colleagues, with an educational trinidad from [employer]. Thrive Questionnaire Date Thrive assessed: 12/25/24 I am a: Patient What is your living situation today?: I have a steady place to live Within the past 12 months, did the food you bought not last and you didn't have the money to get more?: Never true Within the past 12 months, did you worry whether your food would run out before you got money to buy more?: Never true Do you have trouble paying for medicines?: No Do you have trouble getting transportation to medical appointments?: No Do you have trouble paying your heating and electricity bill?: No Do you have trouble taking care of your child, family member or friend?: No Do you have trouble with day-to-day activities such as bathing, preparing meals, shopping, managing finances, etc.?: No Are you currently unemployed and looking for a job?: No Are you interested in more education?: No Please select the resources that you would like help with: None Currently or been in a relationship where the following occur: I choose not to answer THRIVE Score: 0 AUDIT C Alcohol Use Questionnaire (AUDIT-C) 1. How often do you have a drink containing alcohol?: Monthly or less 2. How many drinks containing alcohol do you have on a typical day when you are drinking?: 1 or 2 3. How often do you have six or more drinks on one occasion?: Never Total Score: 1 JILLIAN-7 AMB Questionnaire JILLIAN-7 Date JILLIAN - 7 assessed: 12/29/24 Feeling nervous, anxious, or on edge: 0 = Not at all Not being able to stop or control worryin = Not at all Worrying too much about different things: 0 = Not at all Trouble relaxin = Not at all Being so restless that it is hard to sit still: 0 = Not at all Becoming easily annoyed or irritable: 0 = Not at all Feeling afraid as if something awful might happen: 0 = Not at all Total JILLIAN-7 score (0-4 normal; 5-9 mild; 10-14 moderate; 15-21 severe): 0 Source: Developed by Drs. Parag Overton, Rabia Clarke, Kennedy Casey and colleagues, with an educational trinidad from [employer]. JILLIAN-7 Assessment Billing JILLIAN-7 Assessment Tool: JILLIAN-7 Assessment 05940 Physical exam (Primary Care) Vital Signs: Last Vital Signs Pulse 62 05/04/25 09:56 BP 130/74 05/04/25 09:56 Pulse Ox 96 05/04/25 09:56 BMI result Body Mass Index 36.6 Tobacco/Smoking Status: Tobacco use Status Tobacco use date assessed 12/29/24 05/04/25 09:58 Patient Tobacco Use Status Never used Tobacco 05/04/25 09:58 e-Cigarette/Vaping Use Never Used 05/04/25 09:58 PHQ-9: PHQ-9 Score PHQ-9: Total score 4 05/04/25 12:03 Depression Screening Interpretation: Negative Thrive Assessment: Date of Thrive Assessment Date Thrive assessed 12/25/24 05/04/25 09:58 Currently or been in a relationship where the following occur: I choose not to answer Coding Level of Care Code Est Pt Level 5 (66245) Diagnoses Arthus reaction, initial encounter T78.41XA Encounter type: initial encounter Lumbar pain M54.50 Ganglion cyst of tendon sheath of left hand M67.442 Recurrent major depressive disorder, in full remission F33.42 Active/Remission status: in full remission Hypertension, essential I10 Lipid disorder 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, managed as type 2 E13.9 Other specified hypothyroidism E03.8 Osteoporosis, unspecified osteoporosis type, unspecified pathological fracture presence M81.0 Osteoporosis type: unspecified Presence of current pathological fracture: unspecified Vitamin D deficiency E55.9 Chronic GERD K21.9 Additional Codes PHQ-9 - 20115 - PHQ-9 Billing: Yes ([id number]) JILLIAN-7 Assessment Billing - JILLIAN-7 Assessment Tool: JILLIAN-7 Assessment 32036 ([id number]) Time Spent (min) 40 Comment Reviewing chart/labs/dyns-gx-noeq/coordination of care Assessment & Plan Assessment & Plan (1) Arthus reaction: Code(s): T78.41XA - Arthus phenomenon, initial encounter Category: Medical Qualifiers: Encounter type: initial encounter Qualified Code(s): T78.41XA - Arthus phenomenon, initial encounter (2) Lumbar pain: Code(s): M54.50 - Low back pain, unspecified Category: Medical (3) Ganglion cyst of tendon sheath of left hand: Code(s): M67.442 - Ganglion, left hand Category: Medical (4) Major depression, recurrent: Code(s): F33.9 - Major depressive disorder, recurrent, unspecified Category: Medical Qualifiers: Active/Remission status: in full remission Qualified Code(s): F33.42 - Major depressive disorder, recurrent, in full remission (5) Hypertension, essential: Code(s): I10 - Essential (primary) hypertension Category: Medical (6) Lipid disorder: Code(s): E78.9 - Disorder of lipoprotein metabolism, unspecified Category: Medical (7) Diabetes 1.5, managed as type 2: Code(s): E13.9 - Other specified diabetes mellitus without complications Category: Medical (8) Other specified hypothyroidism: Code(s): E03.8 - Other specified hypothyroidism Category: Medical (9) Osteoporosis: Code(s): M81.0 - Age-related osteoporosis without current pathological fracture Category: Medical Qualifiers: Osteoporosis type: unspecified Presence of current pathological fracture: unspecified Qualified Code(s): M81.0 - Age-related osteoporosis without current pathological fracture (10) Vitamin D deficiency: Code(s): E55.9 - Vitamin D deficiency, unspecified Category: Medical (11) Chronic GERD: Code(s): K21.9 - Gastro-esophageal reflux disease without esophagitis Category: Medical Plan injection related mucle lump History The patient is a 74-year-old female presenting with back pain, a lump on the hand, and a skin reaction after a flu vaccine left upper arm Patient has a history of hypertension, lipid disorder, diabetes, hypothyroidism, anxiety and depression and obesity Back pain: - The patient reports ongoing back pain, particularly affecting the lumbar spine and sacroiliac joint. - The pain has been significantly associated with arthritis, limiting the patient's ability to stand for extended periods. - The discomfort began prior to an x-ray in August that revealed no acute findings but indicated extensive arthritis. - The pain is alleviated by sitting and is exacerbated by standing. Lump on hand: - The patient reports a lump on her hand, initially noticed a few months ago, which has since increased in size. - The patient attempted monique, which may have aggravated the condition. - The lump is identified as a cyst that is movable and possibly fluid-filled. Skin reaction at vaccination site: - The patient experienced a reaction to a flu shot administered in February. - Manifestations include redness and swelling at the injection site,. . Social History: - Enjoys playing on the computer - Has been using a walking pad for exercise, although with recent inconsistency Problem List - Back pain secondary to arthritis - Cyst on the hand close to the base of thumb left - Skin reaction post-vaccination most likely Arthus reaction - Type 2 Diabetes Mellitus due to elevated A1c levels - hypertension - lipid disorder - hypothyroidism Diagnostic results - X-ray of the lumbar spine (August): No acute findings, presence of arthritis - A1c (December): 7.8 - Kidney function (August): Within normal limits Plan - Recommend the use of a back support belt to alleviate back pain associated with the arthritis. - Consider referral to a shipyard painter apprentice for more comprehensive management due to inadequate relief from Tylenol alone. - Suggest taking Aleve intermittently as it is not contraindicated by current kidney function. Which are within normal limit - Encourage compliance with diabetes medication for glycemic control given the A1c of 7.8. - Advise blood work for a comprehensive evaluation. - For the cyst: Recommend the application of an Caesar bandage around the hand to promote reabsorption of the fluid. Consider referral to an orthopedic surgeon referral placed - Examine the persistent post-vaccination skin reaction; prednisone 20 mg once a day for 5 days sent patient is to be evaluated again in 7 days - Encourage consistent use of the walking pad to maintain physical activity. Regular follow up in 3 months Orders: Orders PT Evaluation and Treatment Today M54.50 - Low back pain, unspecified Referrals Orthopedics Referral M67.442 - Ganglion, left hand Medications: New prednisone 20 mg PO DAILY 5 tabs 0RF 5 days
--- OUTSIDE RECORDS SUMMARY | 2025-05-04 11:31 | XMS_ITS | Patient Health Record ---
Author Organization [facility] Address [address] [place] [address] [address] [place] [address] Care Team Providers Care Honey Liquefier Name Role Phone PALLAVI FAN Primary Care Provider Dee Pro Unavailable [phone] Allergies Allergen (clinical drug ingredient) Drug/Non Drug [...] Status W/U Status Risk Notes Problem Hypothyroidism (00857922) Unspecified hypothyroidism (244.9) Active confirmed Problem Pure hypercholesterolemia (972133995) Pure hypercholesterolemia (272.0) Active confirmed Problem Depressive disorder (86443228) Depressive disorder, not elsewhere classified (311) Active confirmed Problem 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) Active confirmed Problem Hypertension (05681350) Hypertension (401.9) Active confirmed Problem Mixed incontinence (302400514) Mixed incontinence (N39.46) Active confirmed Problem Age-related osteoporosis (050147531) Age-related osteoporosis without current pathological fracture (M81.0) Active confirmed Problem Glaucoma (58984832) Unspecified glaucoma (H40.9) Active confirmed Problem Old myocardial infarction (5539664) Old myocardial infarction (I25.2) Active confirmed Problem Chronic kidney disease stage 2 (112907601) Chronic kidney disease, stage 2 (mild) (N18.2) Active confirmed Problem Polyp of corpus uter i (54494808) Polyp of corpus uteri (N84.0) Active confirmed Problem Body mass index 30.0 0 to 34.99 (542599089133155) Body mass index [BMI] 33.0-33.9, adult (Z68.33) Active confirmed Plan Of Treatment Pending Test Test Name Order Date Ultrasound : Pelvic 11/15/2015 MM Digital Mammo Screening 07/19/2021 Insurance Providers Payer Name Payer Address Payer Phone Subscriber Number Group Number Insured Name Patient Relationship to Insured Coverage Start Date Coverage End Date MEDICARE [address] CASEY JOHNSON [id number] [phone] [id number] DAWOOD ROSALES Self - patient is the insured MEDEX [address] [place] [address] [id number] DAWOOD ROSALES Self - patient is [...]
--- OUTSIDE RECORDS SUMMARY | 2025-05-04 11:31 | XMS_ITS | Clinical Summary ---
Author Organization [facility] Address [address] [facility] [address] [place] [address] Phone Care Team Providers Care Electrical Designer Name Role Phone Princess Fairchild MD Primary Care Provider [phone] Allergies Active Allergy Reactions Criticality Noted Date Comments Amoxicillin 05/04/2021 Betamethasone 05/04/2021 Clavulanic Acid 05/04/2021 Tetanus Toxoid-Containing Vaccines 1 Medications aspirin (ST ERIN) 81 MG EC [...] Visit [facility] [address] [address] Camilla Holbrook ARNP [address] [address] Health Maintenance Due Date Last Done Comments Breast Cancer Screening 1950 Pneumococcal Vaccine: 50+ Ye ars (1 of 2 - PCV) 1971 Colorectal Cancer Screening: Annual FOBT 2001 Colorectal Cancer Screening: Colonoscopy 2001 Colorectal Cancer Screening: Sigmoidoscopy 2001 Influenza Vaccine (#1) 2025 Hepatitis B Vaccine Aged Out No longe r eligible based on patient's age to complete this topic Insurance Medicare [facility] Medicare [facility] Care Teams Electrical Designer Relationship Specialty Start Date End Date Princess Fairchild MD [place] [address] PCP - General Internal Medicine 05/04/21
== END 2025-05-04 10:14 | disposition home or self-care (01) ==
LOC: HO.HMCC 09:55
PROVIDERS: PCP Internal Medicine; Visit Provider Internal Medicine
DX: T78.41XA Arthus phenomenon, initial encounter (principal); M54.50 Low back pain, unspecified; M67.442 Ganglion, left hand; F33.42 Major depressive disorder, recurrent, in full remission; I10 Essential (primary) hypertension; E78.9 Disorder of lipoprotein metabolism, unspecified; E13.9 Other specified diabetes mellitus without complications; E03.8 Other specified hypothyroidism; M81.0 Age-related osteoporosis without current pathological fracture; E55.9 Vitamin D deficiency, unspecified; K21.9 Gastro-esophageal reflux disease without esophagitis

== ENCOUNTER 2025-05-12 11:37 | Outpatient (AMB) | payer MEDICARE, SELFPAY ==
--- NOTE | 2025-05-12 11:44 | MHC.PC.OV ---
Vital Signs 05/12/25 11:45 Height 4 ft 11 in Weight 184 lb BMI 37.2 BP 130/72 Blood Pressure Location Lt brachial Position Sitting Pulse 68 Pulse Source Pulse Oximeter Pulse Oximetry (%) 97 Intake Visit Reasons: muscle soreness to arm after flu vaccine. Allergies tetanus toxoid, adsorbed (Tetanus Toxoid,Adsorbed) Allergy (Severe, Verified 05/12/25 11:52) SEVERE SWELLING amoxicillin (Augmentin) Allergy (Unknown, Verified 05/12/25 11:52) Unknown clavulanic acid (Augmentin) Allergy (Unknown, Verified 05/12/25 11:52) Unknown Tetanus Allergy (Unknown, Uncoded 03/31/25 08:27) swelling Tetanus Immune Globulin Allergy (Unknown, Uncoded 03/31/25 08:27) Unknown From Augmentin Adverse Reaction (Severe, Uncoded 03/31/25 08:27) SEVERE N/V Medication List - Last Reconciled 05/12/25 by Princess Fairchild MD alcohol swabs (Alcohol Pads) 1 pad topical DAILY aspirin 81 mg PO DAILY atenolol 25 mg PO DAILY atorvastatin 40 mg PO DAILY 90 days blood sugar diagnostic (FreeStyle Lite Strips) Check blood sugar once daily as directed blood-glucose meter (FreeStyle Lite Meter kit) Check blood sugar once daily as directed calcium citrate-vitamin D3 315 mg-5 mcg (200 unit) 1 tab PO BID 30 days glipizide ER 2.5 mg PO BID 90 days hydrochlorothiazide 25 mg PO QAM 90 days lancets (FreeStyle Lancets) Check blood sugar once daily as directed latanoprost 0.005% 1 drp ophthalmic (eye) QPM levothyroxine 88 mcg PO DAILY 90 days metformin ER 500 mg PO DAILY minoxidil-finasteride 5-0.1 % mL topical paroxetine HCl 40 mg PO QAM 90 days prednisone 20 mg PO DAILY 5 days timolol maleate 0.5% drps ophthalmic (eye) DAILY Tobacco use date assessed: 12/29/24 Dental Screening Dental Screen Date: 12/29/24 HPI muscle soreness to arm after flu vaccine. HPI Details History of Present Illness The patient is a 75-year-old female presenting with an allergic reaction to a flu vaccine Allergic Reaction to Flu Vaccine: Left arm - The patient experienced a localized allergic reaction on the left side following a flu vaccine. - The reaction initially involved swelling and the formation of a nodular area at the injection site. - The patient noted that the swelling has reduced significantly, after treatment with steroid, but a hard nodule remains. - There is no associated pain, and it does not limit shoulder movement. Shoulder Arthritis: - The patient has a longstanding history of arthritis in the shoulder. - Past interventions included two procedures for scraping performed by Dr. Josue. - The condition has progressed to expose the marrow, indicating advanced arthritis. - A shoulder replacement is scheduled for May, after consultation with the orthopedic team. Problem List - Allergic Reaction to Flu Vaccine left - Shoulder Arthritis left Plan - Monitor the nodule at the flu vaccine site, as it is not painful and does not restrict movement. Encourage the use of cold compresses, and Benadryl as palliative measures if symptoms such as itching arise. Review of Systems - General: No fever no chills - Neurological: No headaches no dizziness Physical Exam General: No acute distress HEENT: No acute findings Neck: Supple Respiratory system: Able to talk in full sentences, no audible wheeze Gastrointestinal: No pain Extremities: Nodule at the site of the needle on the left side, painless, no problem with movement of the shoulder CERTIFIED MEDICAL RECORDS CODER: Alert awake oriented x3 motor intact Skin: Normal turgor PFSH Medical History Vitamin D deficiency Osteoporosis Brittle nails Bilateral ankle pain Urinary incontinence, mixed Asthma Hypertension, essential Depression Chronic GERD Lipid disorder Hypothyroid Surgical History History of hip surgery History of surgery on right wrist Hx of tubal ligation Hx of cataract removal with insertion of prosthetic lens History of arthroscopy of left shoulder Hx of repair of right rotator cuff H/O knee surgery Family History Father No problems noted. Mother No problems noted. Social History Housing: House Alcohol intake: current Alcohol intake frequency: a few times a month Patient Tobacco Use Status: Never used Tobacco e-Cigarette/Vaping Use: Never Used Second Hand Smoke Exposure: No service: No Current occupational status: retired Cognitive needs: No Hearing needs: No Vision needs: Yes Questionnaire Thrive Questionnaire Date Thrive assessed: 12/25/24 I am a: Patient What is your living situation today?: I have a steady place to live Within the past 12 months, did the food you bought not last and you didn't have the money to get more?: Never true Within the past 12 months, did you worry whether your food would run out before you got money to buy more?: Never true Do you have trouble paying for medicines?: No Do you have trouble getting transportation to medical appointments?: No Do you have trouble paying your heating and electricity bill?: No Do you have trouble taking care of your child, family member or friend?: No Do you have trouble with day-to-day activities such as bathing, preparing meals, shopping, managing finances, etc.?: No Are you currently unemployed and looking for a job?: No Are you interested in more education?: No Please select the resources that you would like help with: None Currently or been in a relationship where the following occur: I choose not to answer THRIVE Score: 0 JILLIAN-7 AMB Questionnaire JILLIAN-7 Date JILLIAN - 7 assessed: 12/29/24 Source: Developed by Drs. Parag Overton, Rabia Clarke, Kennedy Casey and colleagues, with an educational trinidad from [employer]. Physical exam (Primary Care) Vital Signs: Last Vital Signs Pulse 68 05/12/25 11:45 BP 130/72 05/12/25 11:45 Pulse Ox 97 05/12/25 11:45 BMI result Body Mass Index 37.2 Tobacco/Smoking Status: Tobacco use Status Tobacco use date assessed 12/29/24 05/12/25 11:47 Patient Tobacco Use Status Never used Tobacco 05/12/25 11:47 e-Cigarette/Vaping Use Never Used 05/12/25 11:47 Thrive Assessment: Date of Thrive Assessment Date Thrive assessed 12/25/24 05/12/25 11:47 Currently or been in a relationship where the following occur: I choose not to answer Coding Level of Care Code Est Pt Level 3 (31112) Diagnoses Arthus reaction, initial encounter T78.41XA Encounter type: initial encounter Assessment & Plan Assessment & Plan (1) Arthus reaction: Code(s): T78.41XA - Arthus phenomenon, initial encounter Category: Medical Qualifiers: Encounter type: initial encounter Qualified Code(s): T78.41XA - Arthus phenomenon, initial encounter Plan Allergic Reaction to Flu Vaccine: Left arm - The patient experienced a localized allergic reaction on the left side following a flu vaccine. - The reaction initially involved swelling and the formation of a nodular area at the injection site. - The patient noted that the swelling has reduced significantly, after treatment with steroid, but a hard nodule remains. - There is no associated pain, and it does not limit shoulder movement. Shoulder Arthritis: - The patient has a longstanding history of arthritis in the shoulder. - Past interventions included two procedures for scraping performed by Dr. Josue. - The condition has progressed to expose the marrow, indicating advanced arthritis. - A shoulder replacement is scheduled for May, after consultation with the orthopedic team. Problem List - Allergic Reaction to Flu Vaccine left - Shoulder Arthritis left Plan - Monitor the nodule at the flu vaccine site, as it is not painful and does not restrict movement. Encourage the use of cold compresses, and Benadryl as palliative measures if symptoms such as itching arise.
[2025-05-12 11:45] VITALS: BP 130/72; PULSE 68; O2SAT 97; BMI 37.2
== END 2025-05-12 12:29 | disposition home or self-care (01) ==
LOC: HO.HMCC 11:38
PROVIDERS: PCP Internal Medicine; Visit Provider Internal Medicine
DX: T78.41XA Arthus phenomenon, initial encounter (principal)

== ENCOUNTER → 2025-05-12 11:37 | Outpatient (BNVA) | payer MEDICARE, SELFPAY | PROVIDERS: PCP Internal Medicine; Visit Provider Internal Medicine | DX: T78.41XA Arthus phenomenon, initial encounter (principal); M19.012 Primary osteoarthritis, left shoulder | CPT/HCPCS: 99212 ==

== ENCOUNTER 2025-06-15 09:50 | Outpatient (AMB) | payer MEDICARE, SELFPAY ==
[2025-06-15 10:00] VITALS: BP 118/68; PULSE 85; RESP 16; O2SAT 98; BMI 37.0
--- NOTE | 2025-06-15 10:00 | A.OFFPC_ITS ---
Vital Signs 06/15/25 10:00 Height 4 ft 11 in Weight 183 lb BMI 37.0 BP 118/68 Blood Pressure Location Lt brachial Respiration 16 Pulse 85 Pulse Source Pulse Oximeter Pulse Oximetry (%) 98 Oxygen Delivery Method Room Air Intake Visit Reasons: DR. Josue, lt shoulder replacement. Fence Rider Required: No Accompanied by: Self / Same As Patient Allergies tetanus toxoid, adsorbed (Tetanus Toxoid,Adsorbed) Allergy (Severe, Verified 06/15/25 10:01) SEVERE SWELLING amoxicillin (Augmentin) Allergy (Unknown, Verified 06/15/25 10:01) Unknown clavulanic acid (Augmentin) Allergy (Unknown, Verified 06/15/25 10:01) Unknown Tetanus Allergy (Unknown, Uncoded 06/15/25 10:01) swelling Tetanus Immune Globulin Allergy (Unknown, Uncoded 06/15/25 10:01) Unknown From Augmentin Adverse Reaction (Severe, Uncoded 06/15/25 10:01) SEVERE N/V Medication List - Last Reconciled 06/15/25 by Princess Fairchild MD alcohol swabs (Alcohol Pads) 1 pad topical DAILY aspirin 81 mg PO DAILY atenolol 25 mg PO DAILY atorvastatin 40 mg PO DAILY 90 days blood sugar diagnostic (FreeStyle Lite Strips) Check blood sugar once daily as directed blood-glucose meter (FreeStyle Lite Meter kit) Check blood sugar once daily as directed calcium citrate-vitamin D3 315 mg-5 mcg (200 unit) 1 tab PO BID 30 days glipizide ER 2.5 mg PO BID 90 days hydrochlorothiazide 25 mg PO QAM 90 days lancets (FreeStyle Lancets) Check blood sugar once daily as directed latanoprost 0.005% 1 drp ophthalmic (eye) QPM levothyroxine 88 mcg PO DAILY 90 days metformin ER 500 mg PO DAILY minoxidil-finasteride 5-0.1 % mL topical paroxetine HCl 40 mg PO QAM 90 days prednisone 20 mg PO DAILY 5 days timolol maleate 0.5% drps ophthalmic (eye) DAILY Tobacco use date assessed: 06/15/25 Fall risk assessment: 2 + Falls in past year Last assessed Fall Risk: 06/15/25 Dental Screening Dental Screen Date: 06/15/25 Did you have a dental visit in the last 12 months?: Yes Did you have a dental problem in the last 6 months where you did not have access to dental care?: No Was dental information given to patient?: Patient declined HPI DR. Josue, lt shoulder replacement. HPI Details History The patient is a 75-year-old female presenting for preoperative clearance for a planned left shoulder replacement. [facility] by Dr. Josue 06/22/2025 Left Shoulder Osteoarthritis: - The patient is scheduled for a total l eft shoulder replacement on the of the month. - She has been dealing with this shoulde r issue for approximately 15 years. - The condition is described as severe a rthritis, where the joint has been previously scraped and the marrow is now exposed. Abnormal Electrocardiogram (EKG): - The patient has a history of an abnorm al EKG and was seen by a manufacturing supervisor 2nd shift approximately 10 years ago. - Previous EKG records are not electroni kristopher available for comparison as they were on paper charts. - She reports having had other surgeries since the initial abnormal EKG finding without any reported problems. - A recent EKG shows findings of a first -degree AV block, an incomplete right bundle branch block, and T-wave abnormalities in the lateral leads. Hypothyroidism/Hyperthyroidism: - The patient has a history of hypothyro idism, for which she is prescribed levothyroxine. - Recent thyroid lab tests from April were abnormal, indicating an overactive thyroid. - She was taking levothyroxine 100 mcg i nstead of the recently prescribed 88 mcg, as she was using up her old medication. Type 2 Diabetes Mellitus: - The patient has a history of diabetes. - Her last hemoglobin A1c was 7.1% in [facility]. Hypertension: - The patient has a history of hypertens ion, which is well-controlled with a recent reading of 118/68 mmHg. Medical History: - Hypertension, well-controlled - Type 2 Diabetes Mellitus - Hypothyroidism - Hyperlipidemia - Anxiety and depression - Abnormal EKG, dating back over 10 year s Diagnostic Results: - Labs (April): Hemoglobin A1c was 7.1 %. - Labs (April): Thyroid test was abnor mal, indicating an overactive thyroid. - EKG: Findings include a first-degree A V block, incomplete right bundle branch block, and T-wave abnormality in the lateral leads. Medications - Atorvastatin 40 mg for lipid control - Glipizide 2.5 mg PO BID for diabetes - Hydrochlorothiazide 25 mg for hyperten vijaya - Levothyroxine 88 mcg for hypothyroidis m (patient was taking 100 mcg) - Metformin 500 mg daily for diabetes - Paroxetine 40 mg for anxiety and depre ssion Problem List - Preoperative clearance for left should er replacement - Osteoarthritis of the left shoulder - Abnormal electrocardiogram (first-degr ee AV block, incomplete right bundle branch block, T-wave abnormality) - Hyperthyroidism, likely iatrogenic - Type 2 Diabetes Mellitus - Hypertension - Anxiety and depression - Hyperlipidemia Plan 1. Preoperative Clearance - Due to abnormal EKG findings concernin g for cardiac strain or a possible past silent heart attack, the patient requires cardiac clearance before her shoulder surgery. - [facility]. - An echocardiogram will be ordered to [facility]made more information for the manufacturing supervisor 2nd shift's assessment. - Paperwork will be faxed to the orthope dic surgeon's office. - The patient was advised her surgery ma y need to be postponed, as it is sc heduled very soon, and cardiac clearance is pending. 2. Iatrogenic Hyperthyroidism - Recent labs showed an overactive thyro id, likely due to medication non- adherence where the patient was taking a higher dose of levothyroxine (100 mcg) than prescribed (88 mcg). - The prescription for levothyroxine 88 mcg has been re-sent to the pharmacy. - The patient has been instructed to benji e the correct 88 mcg dose. 3. Type 2 Diabetes Mellitus - The patient's most recent A1c of 7.1 i s acceptable. - No changes were made to her current di abetes medication regimen. 4. Hypertension - The patient's blood pressure is well-c ontrolled. - No changes will be made to her current antihypertensive medication. Medical Decision Making The patient is a 75-year-old female presenting for preoperative clearance for a left total shoulder arthroplasty scheduled for the of the . The primary issue is an abnormal EKG showing a first-degree AV block, incomplete right bundle branch block, and lateral T-wave abnormalities, which represents a change from what is known of her cardiac history. Given that these findings could indicate underlying cardiac strain , and without old records for comparison, cardiac clearance is mandatory to mitigate perioperative risk. To facilitate this, I have placed an urgent referral to cardiology and ordered an echocardiogram to expedite their evaluation. The patient understands that the surgery may need to be postponed pending this clearance. Separately, her thyroid function labs were abnormal, consistent with iatrogenic hyperthyroidism. This was determined to be from the patient taking a higher dose (100 mcg) of levothyroxine than prescribed (88 mcg). I have re-sent the correct prescription and counseled her on medication adherenc e. Her diabetes and hypertension are stable on her current medications, and other labs are within acceptable limits for surgery. I will fax the necessary paperwork to the orthopedic surgeon's office, noting that clearance is contingent on the manufacturing supervisor 2nd shift's assessment. Patient is stable for left shoulder replacement surgery once cleared by Cardiology [facility] Medical History Vitamin D deficiency Osteoporosis Brittle nails Bilateral ankle pain Urinary incontinence, mixed Asthma Hypertension, essential Depression Chronic GERD Lipid disorder Hypothyroid Surgical History History of hip surgery History of surgery on right wrist Hx of tubal ligation Hx of cataract removal with insertion of prosthetic lens History of arthroscopy of left shoulder Hx of repair of right rotator cuff H/O knee surgery Family History Father No problems noted. Mother No problems noted. Social History Housing: House Alcohol intake: current Alcohol intake frequency: a few times a month Patient Tobacco Use Status: Never used Tobacco e-Cigarette/Vaping Use: Never Used Second Hand Smoke Exposure: No service: No Current occupational status: retired Cognitive needs: No Hearing needs: No Vision needs: Yes Questionnaire PHQ-9 Over the last 2 weeks, how often have you been bothered by any of the following problems? 1. Little interest or pleasure in doing things: not at all 2. Feeling down, depressed, or hopeless: not at all 3. Trouble falling or staying asleep, or sleeping too much: not at all 4. Feeling tired or having little energy: not at all 5. Poor appetite or overeating: not at all 6. Feeling bad about yourself - or that you are a failure or have let yourself or your family down: not at all 7. Trouble concentrating on things, such as reading the newspaper or watching television: not at all 8. Moving or speaking so slowly that other people could have noticed. Or the opposite - being so fidgety or restless that you have been moving around a lot more than usual: not at all 9. Thoughts that you would be better off or of hurting yourself in some way: not at all Total score: 0 Depression Screening Interpretation: Negative Depression Screening Done: Yes [id number] - PHQ-9 Billing: Yes Source: Developed by Drs. Parag Overton, Rabia Clarke, Kennedy Casey and colleagues, with an educational trinidad from [employer]. Thrive Questionnaire Date Thrive assessed: 12/25/24 I am a: Patient What is your living situation today?: I have a steady place to live Within the past 12 months, did the food you bought not last and you didn't have the money to get more?: Never true Within the past 12 months, did you worry whether your food would run out before you got money to buy more?: Never true Do you have trouble paying for medicines?: No Do you have trouble getting transportation to medical appointments?: No Do you have trouble paying your heating and electricity bill?: No Do you have trouble taking care of your child, family member or friend?: No Do you have trouble with day-to-day activities such as bathing, preparing meals, shopping, managing finances, etc.?: No Are you currently unemployed and looking for a job?: No Are you interested in more education?: No Please select the resources that you would like help with: None Currently or been in a relationship where the following occur: I choose not to answer THRIVE Score: 0 JILLIAN-7 AMB Questionnaire JILLIAN-7 Date JILLIAN - 7 assessed: 06/15/25 Feeling nervous, anxious, or on edge: 0 = Not at all Not being able to stop or control worryin = Not at all Worrying too much about different things: 0 = Not at all Trouble relaxin = Not at all Being so restless that it is hard to sit still: 0 = Not at all Becoming easily annoyed or irritable: 0 = Not at all Feeling afraid as if something awful might happen: 0 = Not at all Total JILLIAN-7 score (0-4 normal; 5-9 mild; 10-14 moderate; 15-21 severe): 0 Source: Developed by Drs. Parag Overton, Rabia Clarke, Kennedy Casey and colleagues, with an educational trinidad from [employer]. JILLIAN-7 Assessment Billing JILLIAN-7 Assessment Tool: JILLIAN-7 Assessment 74214 Review of Systems Const Denies chills and Denies fever(s) ENT Denies epistaxis and Denies nasal discharge Card Denies chest pain Resp Denies chest congestion, Denies cough and Denies hemoptysis GI Denies diarrhea and Denies nausea Skin/Breast Denies rash Neuro Reports no additional complaints Psych Reports no additional complaints Endo Reports no additional complaints Physical exam (Primary Care) Vital Signs: Last Vital Signs Pulse 85 06/15/25 10:00 Resp 16 06/15/25 10:00 BP 118/68 06/15/25 10:00 Pulse Ox 98 06/15/25 10:00 Oxygen Delivery Method Room Air 06/15/25 10:00 BMI result Body Mass Index 37.0 Tobacco/Smoking Status: Tobacco use Status Tobacco use date assessed 06/15/25 06/15/25 10:05 Patient Tobacco Use Status Never used Tobacco 06/15/25 10:05 e-Cigarette/Vaping Use Never Used 06/15/25 10:05 PHQ-9: PHQ-9 Score PHQ-9: Total score 0 06/15/25 11:27 Depression Screening Interpretation: Negative Thrive Assessment: Date of Thrive Assessment Date Thrive assessed 12/25/24 06/15/25 10:05 Currently or been in a relationship where the following occur: I choose not to answer Const General: cooperative, comfortable and no acute distress Orientation/consciousness: patient oriented x3 HENMT Head: Yes normocephalic Eyes General: appearance normal, both eyes and all related structures Neck Neck: Yes supple Resp Effort & Inspection: normal respiratory effort, no cough and no stridor Cardio Rhythm: regular rhythm Heart sounds: S1 normal heart sound present and S2 normal heart sound present Skin General skin exam: turgor normal Neuro General: patient oriented x3, tone normal and moves all extremities Extrem Other: Both shoulder range of motion equal and almost full with some discomfort Right lower extremity: no edema Left lower extremity: no edema Results Reviewed Results Reviewed: Laboratory Tests 09/06/23 04/29/24 09/11/24 11:15 10:40 09:40 Hgb 11.5 L 12.4 12.5 Hct 40.1 Creatinine Estimated GFR Hemoglobin A1c % 05/04/25 05/04/25 10:20 10:50 Hgb 11.8 L Hct 37.6 Creatinine 0.85 Estimated GFR > 60 Hemoglobin A1c % 7.1 H Coding Level of Care Code Est Pt Level 5 (25296) Diagnoses Pre-op evaluation Z01.818 Abnormal EKG R94.31 Hypertension, essential I10 Heart block atrioventricular I44.30 T wave inversion in EKG R94.31 RBBB (right bundle branch block) I45.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, managed as type 2 E13.9 Other specified hypothyroidism E03.8 Lipid disorder E78.9 Additional Codes JILLIAN-7 Assessment Billing - JILLIAN-7 Assessment Tool: JILLIAN-7 Assessment 38935 ([id number]) PHQ-9 - 87510 - PHQ-9 Billing: Yes ([id number]) Time Spent (min) 40 Comment Reviewing chart/pnzq-iq-xovl/coordination of care Assessment & Plan Assessment & Plan (1) Pre-op evaluation: Code(s): Z01.818 - Encounter for other preprocedural examination Category: Medical (2) Abnormal EKG: Code(s): R94.31 - Abnormal electrocardiogram [ECG] [EKG] Category: Medical (3) Hypertension, essential: Code(s): I10 - Essential (primary) hypertension Category: Medical (4) Heart block atrioventricular: Code(s): I44.30 - Unspecified atrioventricular block Category: Medical (5) T wave inversion in EKG: Code(s): R94.31 - Abnormal electrocardiogram [ECG] [EKG] Category: Medical (6) RBBB (right bundle branch block): Code(s): I45.10 - Unspecified right bundle-branch block Category: Medical (7) Diabetes 1.5, managed as type 2: Code(s): E13.9 - Other specified diabetes mellitus without complications Category: Medical (8) Other specified hypothyroidism: Code(s): E03.8 - Other specified hypothyroidism Category: Medical (9) Lipid disorder: Code(s): E78.9 - Disorder of lipoprotein metabolism, unspecified Category: Medical Plan Left Shoulder Osteoarthritis: - The patient is scheduled for a total left shoulder replacement on the of the month. - She has been dealing with this shoulder issue for approximately 15 years. - The condition is described as severe arthritis, where the joint has been previously scraped and the marrow is now exposed. Abnormal Electrocardiogram (EKG): - The patient has a history of an abnormal EKG and was seen by a manufacturing supervisor 2nd shift approximately 10 years ago. - Previous EKG records are not electronically available for comparison as they were on paper charts. - She reports having had other surgeries since the initial abnormal EKG finding without any reported problems. - A recent EKG shows findings of a first-degree AV block, an incomplete right bundle branch block, and T-wave abnormalities in the lateral leads. Hypothyroidism/Hyperthyroidism: - The patient has a history of hypothyroidism, for which she is prescribed levothyroxine. - Recent thyroid lab tests from April were abnormal, indicating an overactive thyroid. - She was taking levothyroxine 100 mcg instead of the recently prescribed 88 mcg, as she was using up her old medication. Type 2 Diabetes Mellitus: - The patient has a history of diabetes. - Her last hemoglobin A1c was 7.1% in April. Hypertension: - The patient has a history of hypertension, which is well-controlled with a recent reading of 118/68 mmHg. Medical History: - Hypertension, well-controlled - Type 2 Diabetes Mellitus - Hypothyroidism - Hyperlipidemia - Anxiety and depression - Abnormal EKG, dating back over 10 years Diagnostic Results: - Labs (April): Hemoglobin A1c was 7.1%. - Labs (April): Thyroid test was abnormal, indicating an overactive thyroid. - EKG: Findings include a first-degree AV block, incomplete right bundle branch block, and T-wave abnormality in the lateral leads. Medications - Atorvastatin 40 mg for lipid control - Glipizide 2.5 mg PO BID for diabetes - Hydrochlorothiazide 25 mg for hypertension - Levothyroxine 88 mcg for hypothyroidism (patient was taking 100 mcg) - Metformin 500 mg daily for diabetes - Paroxetine 40 mg for anxiety and depression Problem List - Preoperative clearance for left shoulder replacement - Osteoarthritis of the left shoulder - Abnormal electrocardiogram (first-degree AV block, incomplete right bundle branch block, T-wave abnormality) - Hyperthyroidism, likely iatrogenic - Type 2 Diabetes Mellitus - Hypertension - Anxiety and depression - Hyperlipidemia Plan 1. Preoperative Clearance - Due to abnormal EKG findings concerning for cardiac strain or a possible past silent heart attack, the patient requires cardiac clearance before her shoulder surgery. - An urgent referral will be sent to Cardiology for evaluation. - An echocardiogram will be ordered to provide more information for the manufacturing supervisor 2nd shift's assessment. - Paperwork will be faxed to the orthopedic surgeon's office. - The patient was advised her surgery may need to be postponed, as it is sc heduled very soon, and cardiac clearance is pending. 2. Iatrogenic Hyperthyroidism - Recent labs showed an overactive thyroid, likely due to medication non- adherence where the patient was taking a higher dose of levothyroxine (100 mcg) than prescribed (88 mcg). - The prescription for levothyroxine 88 mcg has been re-sent to the pharmacy. - The patient has been instructed to take the correct 88 mcg dose. 3. Type 2 Diabetes Mellitus - The patient's most recent A1c of 7.1 is acceptable. - No changes were made to her current diabetes medication regimen. 4. Hypertension - The patient's blood pressure is well-controlled. - No changes will be made to her current antihypertensive medication. Medical Decision Making The patient is a 75-year-old female presenting for preoperative clearance for a left total shoulder arthroplasty scheduled for the of the . The primary issue is an abnormal EKG showing a first-degree AV block, incomplete right bundle branch block, and lateral T-wave abnormalities, which represents a change from what is known of her cardiac history. Given that these findings could indicate underlying cardiac strain , and without old records for comparison, cardiac clearance is mandatory to mitigate perioperative risk. To facilitate this, I have placed an urgent referral to cardiology and ordered an echocardiogram to expedite their evaluation. The patient understands that the surgery may need to be postponed pending this clearance. Separately, her thyroid function labs were abnormal, consistent with iatrogenic hyperthyroidism. This was determined to be from the patient taking a higher dose (100 mcg) of levothyroxine than prescribed (88 mcg). I have re-sent the correct prescription and counseled her on medication adherence. Her diabetes and hypertension are stable on her current medications, and other labs are within acceptable limits for surgery. I will fax the necessary paperwork to the orthopedic surgeon's office, noting that clearance is contingent on the manufacturing supervisor 2nd shift's assessment. Patient is stable for left shoulder replacement surgery once cleared by Cardiology Orders: Orders CA echo transthoracic complete Today I10 - Essential (primary) hypertension, I44.30 - Unspecified atrioventricular block, I45.10 - Unspecified right bundle- branch block, R94.31 - Abnormal electrocardiogram [ECG] [EKG] Referrals Cardiology Referral R94.31 - Abnormal electrocardiogram [ECG] [EKG] Medications: Refilled levothyroxine 88 mcg PO DAILY 90 tabs 0RF 90 days
== END 2025-06-15 10:35 | disposition home or self-care (01) ==
LOC: HO.HMCC 09:51
PROVIDERS: PCP Internal Medicine; Visit Provider Internal Medicine
DX: Z01.818 Encounter for other preprocedural examination (principal); R94.31 Abnormal electrocardiogram [ECG] [EKG]; I10 Essential (primary) hypertension; I44.30 Unspecified atrioventricular block; I45.10 Unspecified right bundle-branch block; E13.9 Other specified diabetes mellitus without complications; E03.8 Other specified hypothyroidism; E78.9 Disorder of lipoprotein metabolism, unspecified

== ENCOUNTER → 2025-06-15 09:50 | Outpatient (BNVA) | payer MEDICARE, SELFPAY | PROVIDERS: PCP Internal Medicine; Visit Provider Internal Medicine | DX: Z01.818 Encounter for other preprocedural examination (principal); M19.012 Primary osteoarthritis, left shoulder; I10 Essential (primary) hypertension; E05.80 Other thyrotoxicosis without thyrotoxic crisis or storm; R94.31 Abnormal electrocardiogram [ECG] [EKG]; I44.30 Unspecified atrioventricular block; I45.10 Unspecified right bundle-branch block; E13.9 Other specified diabetes mellitus without complications; E03.8 Other specified hypothyroidism | CPT/HCPCS: 96127; 99212 ==

== ENCOUNTER 2025-06-17 15:19 | Outpatient (AMB) | payer MEDICARE, SELFPAY ==
--- NOTE | 2025-06-17 15:26 | MHC.OFFVIS ---
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 Required: No Allergies tetanus toxoid, adsorbed (Tetanus Toxoid,Adsorbed) Allergy (Severe, Verified 06/17/25 15:29) SEVERE SWELLING amoxicillin (Augmentin) Allergy (Unknown, Verified 06/17/25 15:29) Unknown clavulanic acid (Augmentin) Allergy (Unknown, Verified 06/17/25 15:29) Unknown Tetanus Allergy (Unknown, Uncoded 06/17/25 15:29) swelling Tetanus Immune Globulin Allergy (Unknown, Uncoded 06/17/25 15:29) Unknown From Augmentin Adverse Reaction (Severe, Uncoded 06/17/25 15:29) SEVERE N/V Medication List - Last Reconciled 06/17/25 by Chelsi Archuleta NP-C alcohol swabs (Alcohol Pads) 1 pad topical DAILY aspirin 81 mg PO DAILY atenolol 25 mg PO DAILY atorvastatin 40 mg PO DAILY 90 days blood sugar diagnostic (FreeStyle Lite Strips) Check blood sugar once daily as directed blood-glucose meter (FreeStyle Lite Meter kit) Check blood sugar once daily as directed calcium citrate-vitamin D3 315 mg-5 mcg (200 unit) 1 tab PO BID 30 days glipizide ER 2.5 mg PO BID 90 days hydrochlorothiazide 25 mg PO QAM 90 days lancets (FreeStyle Lancets) Check blood sugar once daily as directed latanoprost 0.005% 1 drp ophthalmic (eye) QPM levothyroxine 88 mcg PO DAILY 90 days metformin ER 500 mg PO DAILY minoxidil-finasteride 5-0.1 % mL topical paroxetine HCl 40 mg PO QAM 90 days timolol maleate 0.5% drps ophthalmic (eye) DAILY HPI HPI 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 The patient's past medical history is significant for hypertension, hyperlipidemia, and newer diagnosis of diabetes, all of which are reportedly medically managed. The patient also has a history of asthma and GERD. She has family history of CAD. The patient reports no known cardiac history, such as coronary artery disease, cardiomyopathy. There is a past history of brief, seconds-long palpitations described as flutters, which led to a three-day hospitalization in 2012 where no significant abnormalities were found. Since that time she has not had any issues with heart palpitations. She denies any chest discomfort or shortness of breath. She reports good activity tolerance in his able to climb a flight of stairs without difficulty. She uses a walking pad daily for 20 minutes at speed of 1.5-2 mph. The patient's last surgical procedure was a right hip replacement two years ago, and prior to that had bilateral knee replacements approximately 8-9 years ago, with no reported cardiac complications from these surgeries. She is a lifelong nonsmoker and does not drink alcoholic beverages. The family history is significant for coronary artery disease; the patient's father from a fatal myocardial infarction at age 62, one brother had a mild heart attack about 10 years ago, and a younger brother had a significant heart attack requiring three stents about two years ago at around age 60. [facility] Medical History Vitamin D deficiency Osteoporosis Brittle nails Bilateral ankle pain Urinary incontinence, mixed Asthma Hypertension, essential Depression Chronic GERD Lipid disorder Hypothyroid Surgical History History of hip surgery History of surgery on right wrist Hx of tubal ligation Hx of cataract removal with insertion of prosthetic lens History of arthroscopy of left shoulder Hx of repair of right rotator cuff H/O knee surgery Family History Father No problems noted. Mother No problems noted. Social History Housing: House Alcohol intake: current Alcohol intake frequency: a few times a month Patient Tobacco Use Status: Never used Tobacco e-Cigarette/Vaping Use: Never Used Second Hand Smoke Exposure: No service: No Current occupational status: retired Cognitive needs: No Hearing needs: No Vision needs: Yes Review of Systems Const All systems reviewed & are unremarkable except as noted in HPI and below ENT Denies dizziness Card Denies chest pain, Denies chest pain at rest, Denies chest pain with activity, Denies rapid heart rate, Denies pedal edema, Denies edema, Denies leg edema, Denies lightheadedness, Denies palpitations, Denies dyspnea, Denies dyspnea on exertion and Denies orthopnea Resp Denies cough, Denies dyspnea and Denies dyspnea on exertion GI Denies hematochezia and Denies change in stool character Musc Denies abnormal gait, Reports limited range of motion (shoulder), Denies muscle cramps, Denies muscle weakness, Denies numbness, Denies radiating pain into limb, Denies stiffness and Denies tingling Neuro Denies abnormal gait, Denies dizziness, Denies numbness and Denies tingling Endo Denies palpitations Physical Exam Vital Signs: Last Vital Signs Pulse 85 06/17/25 15:27 BP 142/80 H 06/17/25 15:27 BMI result Body Mass Index 36.7 Const General: cooperative, healthy appearing, comfortable and no acute distress Orientation/consciousness: patient oriented x3 Neck Neck: Yes normal visual inspection Resp Effort & Inspection: normal respiratory effort Auscultation: clear to auscultation bilaterally, no rales, no rhonchi and no wheezes Cardio Rate: regular rate Rhythm: regular rhythm Heart sounds: S1 normal heart sound present, S2 normal heart sound present, no gallops, no murmurs and no rubs Neuro General: patient oriented x3 Extrem General: Yes normal to inspection and No no pedal edema Psych Appearance: grossly normal Mental Status: mental status grossly normal Speech and movement: Normal speech and movement present Assessment & Plan Assessment & Plan (1) Abnormal EKG: Code(s): R94.31 - Abnormal electrocardiogram [ECG] [EKG] Category: Medical Plan: E[place] [facility] [place]02[place] showing sinus rhythm, incomplete right bundle branch block, with T-wave inversion V2-V3, can not exclude prior inferior infarct. Nuclear stress test at that time showed normal myocardial perfusion imaging. EKG from [facility] 08/30/2022 also showing sinus rhythm with incomplete right bundle branch block, T-wave abnormality V2 to V3, can not exclude prior inferior infarct. EKG done in PCP office 06/15/2025 showing sinus rhythm with first-degree AV block, incomplete right bundle branch block, can not exclude prior inferior infarct. When compared to 2013 EKG no significant changes. She has no anginal symptoms. (2) RBBB (right bundle branch block): Code(s): I45.10 - Unspecified right bundle-branch block Category: Medical Plan: Incomplete right bundle branch block unchanged in many years (3) T wave inversion in EKG: Code(s): R94.31 - Abnormal electrocardiogram [ECG] [EKG] Category: Medical Plan: T-wave abnormality anteriorly on EKG, unchanged since at least 2013. Matched with normal nuclear stress test 2013. (4) Hypertension, essential: Code(s): I10 - Essential (primary) hypertension Category: Medical Plan: Blood pressure goal less than 130/80. Mild elevation at this time, anxious for clearance. Blood pressure check 2 days ago 118/68. Continue atenolol and hydrochlorothiazide. (5) Lipid disorder: Code(s): E78.9 - Disorder of lipoprotein metabolism, unspecified Category: Medical Plan: [place]ont LDL goal less than 100. Followed by PCP. Continue atorvastatin. (6) Preop cardiovascular exam: Code(s): Z01.810 - Encounter for preprocedural cardiovascular examination Category: Medical Plan: Preop for total shoulder replacement with RENETTA Mckeon on 06/22/25. Patient may proceed with intermediate cardiac risk. She has no known history of CAD. She does have multiple cardiac risk factors however asymptomatic. Activity level greater than 4 Mets. EKG has abnormalities which are unchanged since EKG 2013. Aspirin can be held as needed for the surgery. Continue her usual atenolol, atorvastatin. Call/consult Cardiology if needed. Plan I have reviewed the patient's history, risk factors, and prior testing in consideration for preoperative cardiovascular clearance for a total shoulder replacement. I explained to the patient that based on this information, the patient is classified as intermediate risk for perioperative cardiac complications. We discussed that while there is a strong family history and multiple risk factors, the lack of current symptoms and the stability of the abnormal EKG findings since 2013, paired with a normal 2013 stress test, are reassuring. I informed the patient that clearance for surgery is granted, but that there is never a guarantee against complications. To aid communication on the day of surgery, I provided copies of the current EKG and the comparative EKG from 2013 to show the chronic nature of the findings. I recommended establishing ongoing care in cardiology due to the patient's risk profile, and we scheduled a follow-up visit in four months to allow for surgical recovery. The patient verbalized understanding of the assessment and plan. Patient Instructions: - You are cleared from a heart standpoint to have your shoulder surgery. - Your risk of having a heart problem during surgery is considered intermediate (medium). - Please keep the copies of your EKG tests that we gave you and bring them with you on the day of surgery in case the doctors have questions. - We have scheduled a follow-up appointment in our office in four months to check on your heart health after you recover from surgery. - If you have any heart-related issues during or after your surgery, please let us know as you may need to be seen sooner. - If you develop any symptoms like chest pain, trouble breathing, or a fluttering feeling in your chest, seek medical attention. Patient was informed and verbally consented to the use of an ambient scribe for clinic note documentation during this visit. Visit time spent on chart review, interview, assessment, orders, documentation. Coding Level of Care Code Complex visit Add On G2211 Diagnoses Abnormal EKG R94.31 RBBB (right bundle branch block) I45.10 T wave inversion in EKG R94.31 Hypertension, essential I10 Lipid disorder E78.9 Preop cardiovascular exam Z01.810 Time Spent (min) 30
[2025-06-17 15:27] VITALS: BP 142/80; PULSE 85; BMI 36.7
--- OUTSIDE RECORDS SUMMARY | 2025-06-17 20:34 | XMS_ITS | Clinical Summary ---
Author Organization [facility] Address [address] [facility] [address] [place] [address] Phone Care Team Providers Care Architecture Drafter Name Role Phone Princess Fairchild MD Primary Care Provider [phone] Allergies Active Allergy Reactions Criticality Noted Date [...] Visit [facility] [address] [address] Camilla Holbrook ARNP [address] [address] Health Maintenance Due Date Last Done Comments Breast Cancer Screening 1950 Pneumococcal Vaccine: 50+ Ye ars (1 of 2 - PCV) 1971 Colorectal Cancer Screening: Annual FOBT 2001 Colorectal Cancer Screening: Colonoscopy 2001 Colorectal Cancer Screening: Sigmoidoscopy 2001 Influenza Vaccine (#1) 2025 Hepatitis B Vaccine Aged Out No longe r eligible based on patient's age to complete this topic Insurance Medicare [facility] Medicare [facility] Care Teams Architecture Drafter Relationship Specialty Start Date End Date Princess Fairchild MD [facility] [place] [address] PCP - General Internal Medicine 05/04/21
--- OUTSIDE RECORDS SUMMARY | 2025-06-17 20:34 | XMS_ITS | Patient Health Record ---
Author Organization [facility] Address [address] [facility] [address] [place] [address] Care Team Providers Care Food Inspector Name Role Phone PALLAVI FAN Primary Care Provider Dee Pro Unavailable [phone] Allergies Allergen (clinical drug ingredient) Drug/Non Drug [...] Status W/U Status Risk Notes Problem Hypothyroidism (86310851) Unspecified hypothyroidism (244.9) Active confirmed Problem Pure hypercholesterolemia (032606403) Pure hypercholesterolemia (272.0) Active confirmed Problem Depressive disorder (36706245) Depressive disorder, not elsewhere classified (311) Active confirmed Problem 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) Active confirmed Problem Hypertension (33531242) Hypertension (401.9) Active confirmed Problem Mixed incontinence (467133333) Mixed incontinence (N39.46) Active confirmed Problem Age-related osteoporosis (313278383) Age-related osteoporosis without current pathological fracture (M81.0) Active confirmed Problem Glaucoma (85660204) Unspecified glaucoma (H40.9) Active confirmed Problem Old myocardial infarction (9402174) Old myocardial infarction (I25.2) Active confirmed Problem Chronic kidney disease stage 2 (850519210) Chronic kidney disease, stage 2 (mild) (N18.2) Active confirmed Problem Polyp of corpus uter i (21989242) Polyp of corpus uteri (N84.0) Active confirmed Problem Body mass index 30.0 0 to 34.99 (458239737441495) Body mass index [BMI] 33.0-33.9, adult (Z68.33) Active confirmed Plan Of Treatment Pending Test Test Name Order Date Ultrasound : Pelvic 11/15/2015 MM Digital Mammo Screening 07/19/2021 Insurance Providers Payer Name Payer Address Payer Phone Subscriber Number Group Number Insured Name Patient Relationship to Insured Coverage Start Date Coverage End Date MEDICARE [address] CASEY JOHNSON [id number] [phone] [id number] DAWOOD ROSALES Self - patient is the insured MEDEX [address] [place] [address] [phone] [id number] DAWOOD ROSALES Self - patient is [...]
== END 2025-06-17 16:18 | disposition home or self-care (01) ==
LOC: HO.HCS 15:20
PROVIDERS: PCP Internal Medicine; Visit Provider Nurse Practitioner Family
DX: R94.31 Abnormal electrocardiogram [ECG] [EKG] (principal); I45.10 Unspecified right bundle-branch block; I10 Essential (primary) hypertension; E78.9 Disorder of lipoprotein metabolism, unspecified; Z01.810 Encounter for preprocedural cardiovascular examination
CPT/HCPCS: 99214; G2211

== ENCOUNTER → 2025-06-17 15:19 | Outpatient (BNVA) | payer MEDICARE, SELFPAY | PROVIDERS: PCP Internal Medicine; Visit Provider Nurse Practitioner Family | DX: R94.31 Abnormal electrocardiogram [ECG] [EKG] (principal); I45.10 Unspecified right bundle-branch block; I10 Essential (primary) hypertension; E78.9 Disorder of lipoprotein metabolism, unspecified; E11.9 Type 2 diabetes mellitus without complications; Z79.84 Long term (current) use of oral hypoglycemic drugs; Z01.810 Encounter for preprocedural cardiovascular examination; Z79.82 Long term (current) use of aspirin | CPT/HCPCS: 99212 ==

== ENCOUNTER → 2025-06-21 09:52 | Outpatient (REF) | payer MEDICARE, SELFPAY ==
--- NOTE | 2025-06-21 09:54 | CA_ITS ---
Transthoracic Echocardiogram Patient (Last, First, Middle): Deidra Panda J Gender: F Date of : 1950 Age: 75 Procedure Date: 06/21/2025 Procedure Type: Transthoracic Echocardiogram Location: OP Height: 149.86 cm Weight: 82.1 kg BSA: 1.77 m2 Heart Rate: 69 bpm BP: 142 / 80 mmHg [place] Layer: SHI Referring MD: Princess Fairchild MD Symptoms: R94.31 - Abnormal electrocardiogram [ECG] [EKG]. Pre-op Study Quality: Fair ECG Rhythm: Sinus Conclusions: - The left ventricular systolic function is normal. The calculated ejection fraction is 65% by biplane method. - No obvious valvular pathology seen on this study. - There is mild dilatation of the ascending aorta measuring 3.90 cm. Findings Left Ventricle Normal left ventricular cavity size. There is mildly increased left ventricular wall thickness. The left ventricular systolic function is normal. The calculated ejection fraction is 65% by biplane method. There is no evidence of regional wall motion abnormalities. Evidence suggests grade I (mild) diastolic dysfunction. Right Ventricle Normal right ventricular cavity size and systolic function. Atria Both atria are normal in size. Aortic Valve The aortic valve was not well visualized. There is no aortic valve stenosis. There is trace (trivial) aortic valve regurgitation. Mitral Valve The mitral valve appears normal. There is no mitral valve regurgitation. There is no mitral valve stenosis. Pulmonic Valve The pulmonic valve is likely normal. Tricuspid Valve There is no tricuspid valve regurgitation. Tricuspid regurgitation envelope is inadequate for calculation of right ventricular systolic pressure. Great Vessels The aortic arch is normal in size. There is mild dilatation of the ascending aorta measuring 3.90 cm. Venous The inferior vena cava is normal in size and collapses greater than 50% with inspiration. Pericardium/Pleural There is no evidence of pericardial effusion. Prior Study Comparison No prior study available for comparison. Recommendations, Care & Conclusions No obvious valvular pathology seen on this study. Measurements 2D Linear Measurements IVSd: 1.03 0.6-0.9/0.6-1.0 cm LVIDd: 4.62 3.9-5.3/4.2-5.9 cm LVIDd Index: 2.61 2.4-3.2/2.2-3.1 cm/m2 LVIDs: 3.21 2.0-3.6 cm LVPWd: 1.01 0.7-1.1 cm LA Diam: 3.60 2.7-3.8/3.0-4.0 cm LAIDs Index: 2.03 1.5-2.3 cm/m2 LV Mass: 204.67 67-162/88-224 g LV Mass Index: 115.63 43-95/49-115 g/m2 LVOT Diam: 2.00 3.0+(-)1.3 cm 2D Systolic Function EF 4C: 65.20 >55% EF 2C: 63.20 >55% EF BiP: 65.10 >55% Mitral Valve MV Pk E: 0.95 MV PK A: 1.06 MV Decel Time: 210.00 E/A: 0.90 E'Lateral: 5.33 E'Medial: 4.90 E/E' Med: 19.30 E/E' Lat: 17.70 PHT: 62.00 MVA PHT: 3.55 Decel Fallon: 4.50 Aortic Valve AoV Pk Jermain: 1.39 AoV Mn Jermain: 1.00 AoV VTI: 0.31 AoV Pk Grad: 8.00 Aov Mn Grad: 4.00 AMADOU Cont.VTI: 2.28 LVOT LVOT Pk Jermain: 1.00 LVOT Mn Jermain: 0.72 LVOT VTI: 0.22 LVOT Pk Grad: 4.00 LVOT Mn Grad: 2.00 LVOT Diam: 2.00 LVOT Area: 3.14 Diastolic Function MV Pk E: 0.95 MV Pk A: 1.06 E/A: 0.90 E'Medial: 4.90 E/E' Med: 19.30 E' Laterial: 5.33 E/E' Lat: 17.70 Right Ventricle TAPSE (mm): 26.10 TVS' Jermain: 11.90 Tricuspid Valve RA Press: 3.00 Great Vessels Aorta Sinus of Valsalva: 3.50 2.0-3.5 cm Ao Asc: 3.90 2.1-3.4 cm Ao Arch: 3.20 Pulmonary Veins Pulm Vein S/D 1.30 Pulmonary Valve PV Pk Jermain: 1.06 Peak PV Grad: 4.00 Updated in Other Vendor System with Status of Final Bradley Jackman MD electronically signed on 06/21/2025 12:31:27 PM with status of Final
--- OUTSIDE RECORDS SUMMARY | 2025-06-21 11:42 | XMS_ITS | Clinical Summary ---
Author Organization [facility] Address [address] [facility] [address] [place] [address] Phone Care Team Providers Care Court Collections Officer Name Role Phone Princess Fairchild MD Primary Care Provider [phone] Allergies Active Allergy Reactions Criticality Noted Date [...] Visit [facility] [address] [address] Camilla Holbrook ARNP [address] [address] Health Maintenance Due Date Last Done Comments Breast Cancer Screening 1950 Pneumococcal Vaccine: 50+ Ye ars (1 of 2 - PCV) 1971 Colorectal Cancer Screening: Annual FOBT 2001 Colorectal Cancer Screening: Colonoscopy 2001 Colorectal Cancer Screening: Sigmoidoscopy 2001 Influenza Vaccine (#1) 2025 Hepatitis B Vaccine Aged Out No longe r eligible based on patient's age to complete this topic Insurance Medicare [facility] Medicare [facility] Care Teams Court Collections Officer Relationship Specialty Start Date End Date Princess Fairchild MD [facility] [place] [address] PCP - General Internal Medicine 05/04/21
== END ==
LOC: HO.CARD 09:52
PROVIDERS: PCP Internal Medicine; Visit Provider Internal Medicine
DX: R94.31 Abnormal electrocardiogram [ECG] [EKG] (principal); I10 Essential (primary) hypertension; I44.30 Unspecified atrioventricular block; I45.10 Unspecified right bundle-branch block
CPT/HCPCS: 93306

== ENCOUNTER → 2025-06-21 09:54 | Outpatient (BNV) | payer MEDICARE, SELFPAY | PROVIDERS: PCP Internal Medicine; Visit Provider Internal Medicine | DX: I51.89 Other ill-defined heart diseases (principal); I77.810 Thoracic aortic ectasia; R94.31 Abnormal electrocardiogram [ECG] [EKG] | CPT/HCPCS: 93306 ==